=== PATIENT | male | born 1965 | race Caucasian/White ===

== ENCOUNTER → 2016-09-29 | Outpatient (CLI) | payer OTHER ==
[~2016-09-29] MED LIST: REGADENOSON 0.4 MG/5 ML SYRINGE IV ONE
--- NOTE | 2016-09-29 11:51 | ECHOF ---
Referral Reason:R07.9 chest pain R06.02 sob MEASUREMENTS -------- HEIGHT: 172.7 cm WEIGHT: 59.0 kg BP: 120/80 IVSd: 1.1 cm (0.6 - 1.1) LVIDd: 3.5 cm (3.9 - 5.3) LVPWd: 1.3 cm (0.6 - 1.1) IVSs: 1.8 cm LVIDs: 2.4 cm LVPWs: 1.6 cm LAESV Index (A-L): 30.03 ml/m Ao Diam: 3.2 cm (2.0 - 3.7) AV Cusp: 1.9 cm (1.5 - 2.6) LA Diam: 2.3 cm (2.7 - 3.8) MV EXCURSION: 20.304 mm (> 18.000) MV EF SLOPE: 165 mm/s (70 - 150) EPSS: 0.3 cm MV E Theo: 1.09 m/s MV DecT: 170 ms MV A Theo: 0.69 m/s MV E/A Ratio: 1.59 RAP: 5.00 mmHg RVSP: 25.60 mmHg FINDINGS -------- Sinus rhythm. This was a technically good study. There is borderline concentric left ventricular hypertrophy. Overall left ventricular systolic function is normal with, an EF between 55 - 60 %. The right ventricle is normal in size and function. LA is midly dilated 29-33ml/m2. The right atrium is normal in size. The aortic valve is trileaflet, and appears structurally normal. No aortic stenosis or regurgitation. Moderate mitral regurgitation is present. Trace tricuspid regurgitation present. The right ventricular systolic pressure, as measured by Doppler, is 25.60mmHg. Pulmonic valve appears structurally normal. The aortic root size is normal. There is a trivial pericardial effusion present. CONCLUSIONS -------- 1. Sinus rhythm. 2. Trace tricuspid regurgitation present. 3. The right ventricular systolic pressure, as measured by Doppler, is 25.60mmHg. 4. Pulmonic valve appears structurally normal. 5. The aortic root size is normal. 6. There is a trivial pericardial effusion present. 7. This was a technically good study. 8. There is borderline concentric left ventricular hypertrophy. 9. Overall left ventricular systolic function is normal with, an EF between 55 - 60 %. 10. The right ventricle is normal in size and function. 11. LA is midly dilated 29-33ml/m2. 12. The right atrium is normal in size. 13. The aortic valve is trileaflet, and appears structurally normal. No aortic stenosis or regurgitation. 14. Moderate mitral regurgitation is present. INSPECTOR SEMICONDUCTOR WAFER: Wendi Johnson RDCS
--- NOTE | 2016-09-29 12:17 | EST ---
DATE OF SERVICE: 09/29/2016 AGE: 51Y SEX: M HT: 5'8" WT: 132 lbs. Lexiscan Cardiolite Stress Test *Heart Rate Blood Pressure *Rest: 86 Rest: 180/96 * *Max. Achieved: 100 Maximum BP: 124/77 85% PMHR: 142 100% PMHR: 167 *METS: - INDICATIONS: Chest pain. MEDICATIONS: Insulin, Motrin, Tramadol, minocycline, lisinopril, Cymbalta. Patient was given Lexiscan injection over the period of 15 seconds. Peak heart rate of 100 was achieved. Maximum blood pressure of 124/77 mmHg was noted. Resting EKG shows normal sinus rhythm with normal SD interval and QRS duration and normal ST-T waves. No ST segment depression suggestive of ischemia is noted. The results of the nuclear study will follow.
--- NOTE | 2016-09-29 14:33 | NM ---
EXAMINATION TYPE: NM stress lexiscan cardiolite DATE OF EXAM: 09/29/2016 12:02 PM COMPARISON: NONE HISTORY: 51-year-old male with chest pain and shortness of breath TECHNIQUE: After the intravenous administration of 9.7 mCi Tc 99m Sestamibi - Cardiolite resting SPE CT images acquired 45 minutes post injection. The patient received 0.4mg Lexiscan, 27.0 mCi Tc 99m Sestamibi - Stress images obtained [address] injection FINDINGS: Review of stress and rest SPECT images demonstrates no distinct perfusion abnormality. Gated analysi s shows normal wall motion with an estimated left ventricular ejection fraction of 70 %. Polar maps a re normal. TID is calculated at 1.09, within normal limits. IMPRESSION: No scintigraphic evidence for reversible ischemia.
== END | disposition home or self-care (01) ==
LOC: RADNMMAIN 08:57
PROVIDERS: ATTEND Family Medicine
DX: I08.1 Rheumatic disorders of both mitral and tricuspid valves (principal); I31.3 Pericardial effusion (noninflammatory); Z88.8 Allergy status to other drugs, medicaments and biological substances; Z88.2 Allergy status to sulfonamides
CPT/HCPCS: 93017; 93306; 78452; A9500; J2785

== ENCOUNTER 2016-12-28 01:03 | Emergency (ER) | payer OTHER ==
[2016-12-28 01:09] VITALS: RESP 18
[2016-12-28] MEDS ORDERED: KETOROLAC 60 MG/2 ML VIAL IM STA (01:42)
--- NOTE | 2016-12-28 01:59 | ED ---
General Adult HPI - General Chief complaint: Fall Stated complaint: Fell out of a boat/Rib and foot pain Time Seen by Provider: 12/28/16 01:19 Source: patient, family, RN notes reviewed Mode of arrival: ambulatory Limitations: no limitations - History of Present Illness Initial comments: 51-year-old male presents emergency department with a chief complaint of left- sided rib pain. Patient states that he was unable and all of a sudden she was under the belt. Patient somehow fell off the belt he complains of left-sided rib pain. Complaint of some abrasions to bilateral feet and some morphine swelling. Patient's and jumping and pulled him out from underneath the belt. They state that he was down there for a few minutes. He states that he felt like he was on his left breath and then she got hit. Patient states that he is no head pain. Patient denies any arm pain. Patient again knee pain. Patient states he did feel little sore and he does have some scrapes to his feet. Patient states mostly he has left rib pain. Worse touch or a deep breath. Patient states he is not currently having any other symptoms at this time.Patient denies any recent fever, chills, shortness of breath, back pain, abdominal pain, nausea vomiting, numbness or tingling, dysuria or hematuria, constipation or diarrhea, headaches or visual changes, or any other current symptoms. - Related Data Home Medications Medication Instructions Recorded Confirmed Insulin Lispro [humaLOG] See Protocol SQ CONTINUOUS 08/02/14 12/28/16 DULoxetine HCL [Cymbalta] 30 mg PO DAILY 12/30/15 12/28/16 Ibuprofen [Motrin] 800 mg PO Q8H 12/30/15 12/28/16 traMADol HCL [Ultram] 100 mg PO BID 12/30/15 12/28/16 Atorvastatin [Lipitor] 10 mg PO DAILY 12/28/16 12/28/16 Lisinopril 40 mg PO DAILY 12/28/16 12/28/16 Previous Rx's Medication Instructions Recorded traMADol HCl [Ultram] 50 mg PO Q12H PRN #60 tab 12/30/15 Hydrocodone/Acetaminophen [[place] 1 each PO Q6HR PRN #20 tab 12/28/16 5-325] Allergies Allergy/AdvReac Type Severity Reaction Status Date / Time pregabalin [From Lyrica] Allergy Unknown Verified 12/28/16 01:09 Review of Systems ROS Statement: Those systems with pertinent positive or pertinent negative responses have been documented in the HPI. ROS Other: All systems not noted in ROS Statement are negative. Past Medical History Past Medical History: COPD, Diabetes Mellitus Additional Past Medical History / Comment(s): chronic back pain, has lost weight over the past year, abdominal pain, neuropathy due to diabetes, retinopathy, mitral valve prolapse History of Any Multi-Drug Resistant Organisms: None Reported Past Surgical History: Tonsillectomy Additional Past Surgical History / Comment(s): polyp removed from stomach as a 1 y.o., lesions removed from throat Past Anesthesia/Blood Transfusion Reactions: No Reported Reaction Past Psychological History: No Psychological Hx Reported Smoking Status: Current every day smoker Past Alcohol Use History: Occasional Past Drug Use History: None Reported - Past Family History Mother Family Medical History: Cancer Additional Family Medical History / Comment(s): lung General Exam - General Exam Comments Initial Comments: General: The patient is awake and alert, in no distress, and does not appear acutely ill. Eye: Pupils are equal, round and reactive to light, extra-ocular movements are intact; there is normal conjunctiva bilaterally. No signs of icterus. Ears, nose, mouth and throat: There are moist mucous membranes and no oral lesions. Neck: The neck is supple, there is no tenderness. Cardiovascular: There is a regular rate and rhythm. No murmur, rub or gallop is appreciated. Respiratory: Lungs are clear to auscultation, respirations are non-labored, breath sounds are equal. No wheezes, stridor, rales, or rhonchi. Gastrointestinal: Soft, non-distended, non-tender abdomen without masses or organomegaly noted. There is no rebound or guarding present. No CVA tenderness. Bowel sounds are unremarkable. Back: There is no tenderness to palpation in the midline. There is no obvious deformity. No rashes noted. Musculoskeletal: Normal ROM, no tenderness, There is no pedal edema. There is no calf tenderness or swelling. Sensation intact. Pulses equal bilaterally 2+. Neurological: CN II-XII intact, There are no obvious motor or sensory deficits. Coordination appears grossly intact. Speech is normal. Skin: Skin is warm and dry and no rashes. Abrasions onto the left side of the rib cage as well as to the left leg Psychiatric: Cooperative, appropriate mood & affect, normal judgment. Limitations: no limitations Course Vital Signs 12/28/16 01:05 Temperature 97.8 F Pulse Rate 94 Respiratory 18 Rate Blood Pressure 131/78 O2 Sat by Pulse 98 Oximetry Medical Decision Making - Medical Decision Making 51-year-old male presents emergency department with a chief complaint of fall with left-sided rib pain. This patient does appear to have a left rib fracture. At this time we did discuss that we'll give him pain medication for home. We did discuss close follow-up to discuss return parameters. His fluids. Patient family state Miguel A on questions have been answered. He will be discharged. Disposition Clinical Impression: Fall, Foot contusion, Abrasion of left lower leg, Abrasion of chest wall, Left rib fracture Disposition: HOME SELF-CARE Condition: Stable Instructions: Abrasion (ED), Rib Fracture (ED) Additional Instructions: Please use medication as discussed. Please follow up with family doctor if symptoms have not improved over the next two days. Please return to the emergency room if your symptoms increase or worsen or for any other concerns. If you develop any difficulty breathing or shortness of breath or worsening symptoms please return to the emergency department. Prescriptions: Hydrocodone/Acetaminophen [[place] 5-325] 1 each PO Q6HR PRN #20 tab PRN Reason: Pain Referrals: Desmond Pierce III, MD [Primary Care Provider] - 1-2 days Time of Disposition: 02:44
--- NOTE | 2016-12-28 02:39 | XR ---
EXAM: XR Left Ribs, 2 Views CLINICAL HISTORY: Reason: Pain TECHNIQUE: Frontal and oblique views of the left ribs. COMPARISON: No relevant prior studies available. FINDINGS: Lungs: Unremarkable as visualized. No consolidation. Pleural space: Unremarkable. No pneumothorax. Bones/joints: Nondisplaced fracture of the left posterolateral eighth rib (best seen on the second and fourth images). IMPRESSION: Nondisplaced fracture of the left posterolateral eighth rib (best seen on the second and fourth images).
[2016-12-28] MEDS ORDERED: HYDROcodone/APAP 5-325MG 1 EACH TAB PO STA (02:45)
[2016-12-28 03:13] VITALS: BP 145/82; PULSE 98; TEMP 97.1
== END 2016-12-28 03:10 | disposition home or self-care (01) ==
LOC: EC 01:03
DX: S22.32XA Fracture of one rib, left side, initial encounter for closed fracture (principal); S90.32XA Contusion of left foot, initial encounter; S20.312A Abrasion of left front wall of thorax, initial encounter; E11.40 Type 2 diabetes mellitus with diabetic neuropathy, unspecified; E11.319 Type 2 diabetes mellitus with unspecified diabetic retinopathy without macular edema; F17.200 Nicotine dependence, unspecified, uncomplicated; Z79.891 Long term (current) use of opiate analgesic; Z88.8 Allergy status to other drugs, medicaments and biological substances; Z79.4 Long term (current) use of insulin; Z79.899 Other long term (current) drug therapy; V93.39XA Fall on board unspecified watercraft, initial encounter
CPT/HCPCS: 71101; 99283; 96372; J1885

== ENCOUNTER → 2017-01-04 | Outpatient (CLI) | payer OTHER ==
--- NOTE | 2017-01-04 18:46 | MR ---
EXAMINATION TYPE: MR cervical spine wo/w con DATE OF EXAM: 01/04/2017 COMPARISON: 03/06/2015 Contrast: 5.5 mL Gadavist HISTORY: Neck Pain, with Limited ROM TECHNIQUE: Multiplanar, multisequence images of the cervical spine were acquired utilizing 5.5 mL intravenous Ga davist gadolinium contrast. There is a slight curvature of the spine. C2-C3: No evidence for degenerative disc disease. No disc bulge/herniation or protrusion. No Canal stenosis. Foramina are patent bilaterally. C3-C4: No evidence for degenerative disc disease. No disc bulge/herniation or protrusion. No Canal stenosis. Foramina are patent bilaterally. C4-C5: Mild disc desiccation. Broad-based central disc protrusion greatest posteriorly with effacemen t of the ventral thecal sac. Subligamentous disc herniation not excluded paracentrally and to the rig ht. Result in moderate bilateral foraminal encroachment. Borderline central stenosis. C5-C6: Mild degenerative disc desiccation. Circumferential disc bulge mild in degree with effacement ventral thecal sac. Greater left paracentral broad-based protrusion is stable. Left foraminal encroac hment seen. No central stenosis. C6-C7: Mild degenerative disc desiccation. Broad-based central disc protrusion slightly greater parac entrally to the left mild in degree with effacement ventral thecal sac. No evidence for central steno sis or disc herniation. Mild bilateral foraminal encroachment secondary to cervical apophyseal joint degenerative change. C7-T1: No evidence for degenerative disc disease. No disc bulge/herniation or protrusion. No Canal st enosis. Foramina are patent bilaterally. Cervical segments are intact. There is normal alignment. Cervical spinal cord is of normal signal. Craniovertebral junction relationships are within normal limits. IMPRESSION: 1. Multilevel degenerative disc disease is stable. 2. Broad-based central disc protrusion paracentrally to the left C5-C6 is stable with mild effacement of thecal sac and left-sided foraminal encroachment. 3. Broad-based central protrusion C4-C5 with mild to moderate effacement of thecal sac and borderline stenosis with bilateral foraminal encroachment..
== END | disposition home or self-care (01) ==
LOC: RADMRIMAIN 17:37
PROVIDERS: ATTEND Psychiatry & Neurology Pain Medicine
DX: M48.02 Spinal stenosis, cervical region (principal); M50.221 Other cervical disc displacement at C4-C5 level; M50.30 Other cervical disc degeneration, unspecified cervical region
CPT/HCPCS: 72156; A9581

== ENCOUNTER 2017-01-19 14:27 | Observation (INO) | payer OTHER ==
[2017-01-19] MEDS ORDERED: ASPIRIN 81 MG PO STA (16:15)
[2017-01-19] MEDS ORDERED: NITROGLYCERIN SL TABS 0.4 MG TAB SUBLINGUAL STA (16:15)
--- NOTE | 2017-01-19 16:18 | ED ---
General Adult HPI - General Chief complaint: Recheck/Abnormal Lab/Rx Stated complaint: high blood pressure Time Seen by Provider: 01/19/17 16:07 Source: patient, RN notes reviewed Mode of arrival: wheelchair Limitations: no limitations - History of Present Illness Initial comments: Patient's a 51-year-old male who presents emergency room today with chief complaint of elevated blood pressure. He does admit that he was scheduled to have injection for his neck pain. He states his blood pressure was elevated there and was advised coming to the emergency room for evaluation. He states that proximal half an hour ago while waiting to be seen he began having some chest tightness and discomfort. Patient denies ever having symptoms similar to this in the past. Patient currently rates it a 5/. Denies any radiation. Patient denies any other complaints or social symptoms. Patient denies any recent fever, chills, shortness of breath, chest pain, back pain, abdominal pain , nausea or vomiting, numbness or tingling, dysuria or hematuria, constipation or diarrhea, headaches or visual changes, or any other complaints. - Related Data Home Medications Medication Instructions Recorded Confirmed Ibuprofen [Motrin] 800 mg PO Q12H 12/30/15 01/19/17 traMADol HCL [Ultram] 100 mg PO Q12H 12/30/15 01/19/17 Lisinopril 40 mg PO DAILY 12/28/16 01/19/17 Atorvastatin [Lipitor] 20 mg PO DAILY 01/19/17 01/19/17 Cyclobenzaprine [Flexeril] 5 mg PO HS 01/19/17 01/19/17 DULoxetine HCL [Cymbalta] 60 mg PO HS 01/19/17 01/19/17 INSULIN LISPRO (For Pump) [humaLOG 0.01 units SQ-PUMP CONTINUOUS 01/19/17 (For Pump)] Allergies Allergy/AdvReac Type Severity Reaction Status Date / Time pregabalin [From Lyrica] Allergy Unknown Verified 01/19/17 17:21 Review of Systems ROS Statement: Those systems with pertinent positive or pertinent negative responses have been documented in the HPI. ROS Other: All systems not noted in ROS Statement are negative. Past Medical History Past Medical History: COPD, Diabetes Mellitus Additional Past Medical History / Comment(s): chronic back pain, has lost weight over the past year, abdominal pain, neuropathy due to diabetes, retinopathy, mitral valve prolapse History of Any Multi-Drug Resistant Organisms: None Reported Past Surgical History: Tonsillectomy Additional Past Surgical History / Comment(s): polyp removed from stomach as a 1 y.o., lesions removed from throat Past Anesthesia/Blood Transfusion Reactions: No Reported Reaction Past Psychological History: No Psychological Hx Reported Smoking Status: Current every day smoker Past Alcohol Use History: Occasional Past Drug Use History: None Reported - Past Family History Mother Family Medical History: Cancer Additional Family Medical History / Comment(s): lung General Exam - General Exam Comments Initial Comments: General: The patient is awake and alert, in no distress, and does not appear acutely ill. Eye: Pupils are equal, round and reactive to light, extra-ocular movements are intact. No nystagmus. There is normal conjunctiva bilaterally. No signs of icterus. Ears, nose, mouth and throat: There are moist mucous membranes and no oral lesions. Neck: The neck is supple, there is no tenderness or JVD. Cardiovascular: There is a regular rate and rhythm. No murmur, rub or gallop is appreciated. Respiratory: Lungs are clear to auscultation, respirations are non-labored, breath sounds are equal. No wheezes, stridor, rales, or rhonchi. Gastrointestinal: Soft, non-distended, non-tender abdomen without masses or organomegaly noted. There is no rebound or guarding present. No CVA tenderness. Bowel sounds are unremarkable. Musculoskeletal: Normal ROM, no tenderness. Strength 5/5. Sensation intact. Pulses equal bilaterally 2+. Neurological: A&O x 3. CN II-XII intact, There are no obvious motor or sensory deficits. Coordination appears grossly intact. Speech is normal. Skin: Skin is warm and dry and no rashes or lesions are noted. Psychiatric: Cooperative, appropriate mood & affect, normal judgment. Limitations: no limitations Course Vital Signs 01/19/17 01/19/17 01/19/17 14:43 16:46 17:40 Temperature 98.8 F Pulse Rate 85 85 86 Respiratory 20 20 20 Rate Blood Pressure 169/82 203/68 197/106 O2 Sat by Pulse 99 99 98 Oximetry 01/19/17 18:00 Temperature Pulse Rate 88 Respiratory 20 Rate Blood Pressure 203/100 O2 Sat by Pulse 99 Oximetry Medical Decision Making - Medical Decision Making Patient reexamined at this time shows no signs of distress. Patient's blood pressure improved after medication given here the emergency room. Patient did admit to developing some chest tightness in his chest while waiting to be seen. At this time his pain he is pain-free. He denies any chest pain or tightness. Does have a history of diabetes and hypertension. Patient will be admitted for serial enzymes. Patient is in agreement. - Lab Data Result diagrams: 01/19/17 16:50 01/19/17 16:50 Lab Results 01/19/17 01/19/17 01/19/17 Range/Units 16:50 16:50 16:50 WBC 10.0 (3.8-10.6) k/uL RBC 4.45 (4.30-5.90) m/uL Hgb 13.8 (13.0-17.5) gm/dL Hct 39.8 (39.0-53.0) % MCV 89.5 (80.0-100.0) fL MCH 31.0 (25.0-35.0) pg MCHC 34.7 (31.0-37.0) g/dL RDW 12.7 (11.5-15.5) % Plt Count 229 (150-450) k/uL Neutrophils % 63 % Lymphocytes % 25 % Monocytes % 7 % Eosinophils % 3 % Basophils % 0 % Neutrophils # 6.3 (1.3-7.7) k/uL Lymphocytes # 2.5 (1.0-4.8) k/uL Monocytes # 0.7 (0-1.0) k/uL Eosinophils # 0.3 (0-0.7) k/uL Basophils # 0.0 (0-0.2) k/uL PT (9.0-12.0) sec INR (<1.2) APTT (22.0-30.0) sec Sodium 138 (137-145) mmol/L Potassium 3.9 (3.5-5.1) mmol/L Chloride 105 (98-107) mmol/L Carbon Dioxide 25 (22-30) mmol/L Anion Gap 8 mmol/L BUN 11 (9-20) mg/dL Creatinine 0.50 L (0.66-1.25) mg/dL Est GFR (MDRD) Af Amer >60 (>60 ml/min/1.73 sqM) Est GFR (MDRD) Non-Af >60 (>60 ml/min/1.73 sqM) Glucose 192 H (74-99) mg/dL Calcium 9.4 (8.4-10.2) mg/dL Magnesium 1.7 (1.6-2.3) mg/dL Total Bilirubin 0.5 (0.2-1.3) mg/dL AST 31 (17-59) U/L ALT 60 (21-72) U/L Alkaline Phosphatase 81 (38-126) U/L Total Creatine Kinase 133 (55-170) U/L CK-MB (CK-2) 1.8 (0.0-2.4) ng/mL CK-MB (CK-2) Rel Index 1.4 Troponin I <0.012 (0.000-0.034) ng/mL Total Protein 6.1 L (6.3-8.2) g/dL Albumin 3.8 (3.5-5.0) g/dL 01/19/17 Range/Units 16:50 WBC (3.8-10.6) k/uL RBC (4.30-5.90) m/uL Hgb (13.0-17.5) gm/dL Hct (39.0-53.0) % MCV (80.0-100.0) fL MCH (25.0-35.0) pg MCHC (31.0-37.0) g/dL RDW (11.5-15.5) % Plt Count (150-450) k/uL Neutrophils % % Lymphocytes % % Monocytes % % Eosinophils % % Basophils % % Neutrophils # (1.3-7.7) k/uL Lymphocytes # (1.0-4.8) k/uL Monocytes # (0-1.0) k/uL Eosinophils # (0-0.7) k/uL Basophils # (0-0.2) k/uL PT 10.4 (9.0-12.0) sec INR 1.0 (<1.2) APTT 24.0 (22.0-30.0) sec Sodium (137-145) mmol/L Potassium (3.5-5.1) mmol/L Chloride (98-107) mmol/L Carbon Dioxide (22-30) mmol/L Anion Gap mmol/L BUN (9-20) mg/dL Creatinine (0.66-1.25) mg/dL Est GFR (MDRD) Af Amer (>60 ml/min/1.73 sqM) Est GFR (MDRD) Non-Af (>60 ml/min/1.73 sqM) Glucose (74-99) mg/dL Calcium (8.4-10.2) mg/dL Magnesium (1.6-2.3) mg/dL Total Bilirubin (0.2-1.3) mg/dL AST (17-59) U/L ALT (21-72) U/L Alkaline Phosphatase (38-126) U/L Total Creatine Kinase (55-170) U/L CK-MB (CK-2) (0.0-2.4) ng/mL CK-MB (CK-2) Rel Index Troponin I (0.000-0.034) ng/mL Total Protein (6.3-8.2) g/dL Albumin (3.5-5.0) g/dL Disposition Clinical Impression: Chest pain Disposition: ADMITTED IP TO THIS HOSP Condition: Good Instructions: Chest Pain (ED) Referrals: Desmond Pierce III, MD [Primary Care Provider] - 1-2 days Time of Disposition: 18:32
--- NOTE | 2017-01-19 16:46 | XR ---
EXAMINATION TYPE: XR chest 2V DATE OF EXAM: 01/19/2017 COMPARISON: 12/30/2015 HISTORY: Hypertension. Chest pain TECHNIQUE: Frontal and lateral views of the chest are obtained. FINDINGS: Heart and mediastinum are normal. Lungs are clear. There is no pleural effusion. There are no hilar masses. There are fractures of the posterior left seventh and eighth ribs. Thoracic spine i s intact. IMPRESSION: Acute fractures of the left ribs. Normal heart.
[2017-01-19 17:17] LABS: Basophils % (A) 0 %; CH 30.7; CHCM 34.4; Eosinophils # (A) 0.3 k/uL (0-0.7); Eosinophils % (A) 3 %; HCT 39.8 % (39.0-53.0); HDW 2.37; HGB 13.8 gm/dL (13.0-17.5); Luc # (Auto) 0.23; Luc % (Auto) 2; Lymphocytes # (A) 2.5 k/uL (1.0-4.8); Lymphocytes % (A) 25 %; MCHC 34.7 g/dL (31.0-37.0); MCV 89.5 fL (80.0-100.0); Mean Platelet Volume 7.6; Monocytes # (A) 0.7 k/uL (0-1.0); Monocytes % (A) 7 %; Neutrophils # (A) 6.3 k/uL (1.3-7.7); Neutrophils % (A) 63 %; RBC 4.45 m/uL (4.30-5.90); RDW 12.7 % (11.5-15.5); WBC (Perox) 10.15
[2017-01-19 17:30] LABS: ALT 60 U/L (21-72); AST 31 U/L (17-59); Alkaline Phosphatase 81 U/L (38-126); Anion Gap 8 mmol/L; Blood Urea Nitrogen 11 mg/dL (9-20); Calcium 9.4 mg/dL (8.4-10.2); Carbon Dioxide 25 mmol/L (22-30); Chloride 105 mmol/L (98-107); Glucose 192 mg/dL (74-99); Magnesium 1.7 mg/dL (1.6-2.3); Non-African American GFR(MDRD) >60 (>60 ml/min/1.73 sqM); Potassium 3.9 mmol/L (3.5-5.1); Sodium 138 mmol/L (137-145); Total Bilirubin 0.5 mg/dL (0.2-1.3); Total Protein 6.1 g/dL (6.3-8.2)
[2017-01-19 17:33] LABS: Prothrombin Time 10.4 sec (9.0-12.0)
[2017-01-19 17:47] LABS: Creatine Kinase 133 U/L (55-170)
[2017-01-19 17:56] LABS: Creatine Kinase MB 1.8 ng/mL (0.0-2.4)
[2017-01-19] MEDS ORDERED: hydrALAZINE HCL 20 MG/ML 1 ML VIAL IVP STA (18:10)
[2017-01-19 18:15] LABS: Troponin I <0.012 ng/mL (0.000-0.034)
[2017-01-19] MEDS ORDERED: HEPARIN SODIUM,PORCINE 5,000 UNIT/ML 1 ML VIAL IV ONE (18:32)
[2017-01-19] MEDS ORDERED: SODIUM CHLORIDE 0.9% 1,000 ML IV ONE (18:32)
[2017-01-19] MEDS ORDERED: NITROGLYCERIN SL TABS 0.4 MG TAB SUBLINGUAL PRN (18:32)
[2017-01-19] MEDS ORDERED: HEPARIN SODIUM,PORCINE/D5W PMX 25,000 UNIT in DEXTROSE/WATER 1 500ML.BAG IV SCH (18:45)
[2017-01-19 20:23] LABS: Glucose,Whole Blood 149 mg/dL (75-99)
[2017-01-19 21:00] LABS: Appearance,Urine Clear (Clear); Bilirubin,Urine Negative (Negative); Glucose,Urine (UA) 4+ (Negative); Ketones,Urine Negative (Negative); Leukocyte Esterase,Urine Negative (Negative); Nitrite,Urine Negative (Negative); Protein,Urine Negative (Negative); Specific Gravity,Urine 1.007 (1.001-1.035); UA Billing (MACRO vs. MICRO) CHEM; Urobilinogen,Urine <2.0 mg/dL (<2.0)
[2017-01-19] MEDS ORDERED: CYCLOBENZAPRINE 5 MG TAB PO SCH (21:30)
[2017-01-19] MEDS ORDERED: DULoxetine HCL 60 MG CAPSULE.DR PO SCH (21:30)
[2017-01-19] MEDS: ATORVASTATIN 20 MG TAB PO SCH (22:02)
[2017-01-19] MEDS: traMADol 50 MG TAB PO PRN (22:03)
[2017-01-19] MEDS: IBUPROFEN 800 MG TAB PO PRN (22:42)
[2017-01-20 00:48] LABS: Creatine Kinase 95 U/L (55-170)
[2017-01-20 01:01] LABS: Creatine Kinase MB 1.4 ng/mL (0.0-2.4); Troponin I <0.012 ng/mL (0.000-0.034)
[2017-01-20 05:36] LABS: Anion Gap 5 mmol/L; Blood Urea Nitrogen 14 mg/dL (9-20); Calcium 8.8 mg/dL (8.4-10.2); Carbon Dioxide 26 mmol/L (22-30); Chloride 106 mmol/L (98-107); Cholesterol 85 mg/dL (<200); Glucose 200 mg/dL (74-99); HDL Cholesterol 57 mg/dL (40-60); Magnesium 1.7 mg/dL (1.6-2.3); Non-African American GFR(MDRD) >60 (>60 ml/min/1.73 sqM); Potassium 3.6 mmol/L (3.5-5.1); Sodium 137 mmol/L (137-145)
[2017-01-20 05:43] LABS: Basophils # (A) 0.1 k/uL (0-0.2); Basophils % (A) 1 %; CH 31.4; CHCM 34.6; Eosinophils # (A) 0.3 k/uL (0-0.7); Eosinophils % (A) 4 %; HCT 37.7 % (39.0-53.0); HDW 2.33; HGB 12.6 gm/dL (13.0-17.5); Luc # (Auto) 0.24; Luc % (Auto) 3; Lymphocytes # (A) 2.6 k/uL (1.0-4.8); Lymphocytes % (A) 33 %; MCH 30.4 pg (25.0-35.0); MCHC 33.3 g/dL (31.0-37.0); MCV 91.1 fL (80.0-100.0); Mean Platelet Volume 8.5; Monocytes # (A) 0.6 k/uL (0-1.0); Monocytes % (A) 8 %; Neutrophils # (A) 4.1 k/uL (1.3-7.7); Neutrophils % (A) 52 %; RBC 4.14 m/uL (4.30-5.90); RDW 13.7 % (11.5-15.5); WBC 7.9 k/uL (3.8-10.6); WBC (Perox) 8.67
[2017-01-20 05:44] LABS: Creatine Kinase 82 U/L (55-170)
[2017-01-20 05:57] LABS: Creatine Kinase MB 1.2 ng/mL (0.0-2.4); Troponin I <0.012 ng/mL (0.000-0.034)
[2017-01-20 06:52] LABS: Glucose,Whole Blood 175 mg/dL (75-99)
[2017-01-20 07:39] VITALS: RESP 18
[2017-01-20] MEDS: ATORVASTATIN 20 MG TAB PO SCH (07:57)
[2017-01-20] MEDS ORDERED: ASPIRIN 325 MG TAB PO SCH (09:00)
[2017-01-20] MEDS ORDERED: INSULIN LISPRO (humaLOG) 300 UNIT/3 ML VIAL SQ PRN (09:34)
[2017-01-20] MEDS ORDERED: INSPUCOR MISCELLANE PRN (09:34)
[2017-01-20] MEDS ORDERED: INSULIN PUMP TARGET GLUCOSE 1 EACH MISC MISCELLANE PRN (09:34)
[2017-01-20] MEDS ORDERED: INSULIN PUMP ACTIVE INSULIN 1 EACH MISC MISCELLANE PRN (09:34)
[2017-01-20] MEDS ORDERED: INSULIN PUMP BASAL RATES 1 EACH MISC MISCELLANE PRN (09:34)
[2017-01-20] MEDS: traMADol 50 MG TAB PO PRN (10:21)
[2017-01-20] MEDS: IBUPROFEN 800 MG TAB PO PRN (11:21)
[2017-01-20 11:32] VITALS: BP 143/81; PULSE 90; TEMP 98.8
--- NOTE | 2017-01-20 11:33 | CONS ---
CONSULTATION A 51-year-old gentleman with type 1 diabetes on an insulin pump who also has hypertension, hyperlipidemia. Came into the hospital after he went to see Dr. Arriaza for a neck injection. He was waiting for that, his blood pressure was elevated. He had a lot of neck pain. Pressure was high. He was sent in here. Blood pressure was about about 200 systolic. After arrival pressure has normalized. He also complained of some sharp pain in the chest. Troponin levels are normal. Pain seems to be atypical. There is an element of anxiety. Blood pressure has normalized. About 3 TO 4 months ago, This gentleman had a Lexiscan stress test and echocardiogram both of which were unremarkable. He is resting comfortably without symptoms. Appears to be quite comfortable, blood sugar is also fairly decent. He has type [address] Tiffany Mccray and Dr. Pierce. At the time of my evaluation, he is asymptomatic. PAST MEDICAL HISTORY: 1. Type 1 diabetes. 2. History of hypertension. 3. Hypercholesterolemia. 4. History of a normal Lexiscan stress test and echo in the last 3 to 4 months. MEDICATIONS: At home include he is on an insulin pump. He takes Flexeril, atorvastatin 20 mg daily, lisinopril 40 mg daily, ibuprofen p.r.n. and Ultram. ALLERGIES: He is allergic to LYRICA. REVIEW OF SYSTEMS: Unremarkable, other than the above-mentioned facts. PHYSICAL EXAMINATION: Blood pressure is 140/80, pulse rate is about 80 per minute, regular. HEENT: unremarkable. Fundus was not examined by me. Neck is supple. No JVD. I do not hear a carotid bruit. There is no thyromegaly. Heart exam reveals S1, S2 heard normally without a rub, murmur, or gallop. Lungs are clear. Abdomen is soft, nontender. Lower extremities reveal normal pulses. No edema. Central nervous system is normal. EKG revealed sinus mechanism. No acute changes. LABORATORY DATA: Revealed unremarkable troponins. IMPRESSION: 1. Atypical chest pain. 2. Type 1 diabetes on insulin pump. 3. Hypertension. 4. Hypercholesterolemia. 5. Recent negative Lexiscan stress test and echocardiogram. RECOMMENDATIONS: I am recommending that we add a small dose of Norvasc for BP control. Discontinue heparin, increase activity. Discharge him with the understanding that he should follow up with his translator/interpreter and PCP. No further intervention necessary at this time. Chest pain seems atypical and his recent stress testing was negative. Thank you very much for the consult. MIHIR / DAVIDN: [id number] /
[2017-01-20 11:55] LABS: Glucose,Whole Blood 262 mg/dL (75-99)
[2017-01-20] MEDS ORDERED: INSULIN PUMP MEAL BOLUS 1 UNIT MISC MISCELLANE SCH (12:30)
--- NOTE | 2017-01-20 15:29 | P.HPIM ---
History of Present Illness Patient is a 51-year-old gentleman came in to the hospital after he was sent in from neurology clinic because of elevated blood pressure with systolics going up to 200. Patient's blood pressure at this point of time is an 140 systolic without any antidepressive medication patient was seen in neurology clinic because of the neck pain patient also complained about chest pressure like sensation radiating to from the neck area because of degenerative neck disease. Patient the chest pain is very minimal nonpleuritic, not associated with food no diaphoresis. Patient was evaluated by cardiology rule out acute coronary syndromes patient chest pain secondary to degenerative neck disease cleared from cardiology perspective. Patient was counseled extensively to check the blood pressure in an appropriate way. Patient's elevated blood pressure is secondary to pain. At this point of time patient will not need any antidepressants medications need to check his blood pressure in an appropriate way when he is not in pain to diagnose essential hypertension. Review of Systems REVIEW OF SYSTEMS: CONSTITUTIONAL: No fever, no malaise, no fatigue. HEENT: No recent visual problems or hearing problems. Denied any sore throat. CARDIOVASCULAR: No orthopnea, PND, no palpitations, no syncope. PULMONARY: No shortness of breath, no cough, no hemoptysis. GASTROINTESTINAL: No diarrhea, no nausea, no vomiting, no abdominal pain. Normoactive bowel sounds. NEUROLOGICAL: No headaches, no weakness, no numbness. HEMATOLOGICAL: Denies any bleeding or petechiae. GENITOURINARY: Denies any burning micturition, frequency, or urgency. MUSCULOSKELETAL/RHEUMATOLOGICAL: Neck pain radiating to the chest as mentioned above ENDOCRINE: Denies any polyuria or polydipsia. The rest of the 14-point review of systems is negative. Past Medical History Past Medical History: Diabetes Mellitus, Hyperlipidemia, Hypertension Additional Past Medical History / Comment(s): chronic back pain, has lost weight over the past year, abdominal pain, neuropathy due to diabetes,DROP FOOT (LT) wears a boot. retinopathy, mitral valve prolapse.mennigitis as child, recent fall-fx rib on lt side and has a "sore" on lower lt leg.has has steroid inj hips/wrist History of Any Multi-Drug Resistant Organisms: None Reported Past Surgical History: Tonsillectomy Additional Past Surgical History / Comment(s): polyp removed from stomach as a 1 y.o., lesions removed from throat positive for cancer- sx got it all -no chemo or radiation, egd,colonoscopy/polypectomy(benign)."can't rememebr if he had his appendix removed or not. 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(pig valve) Medications and Allergies Home Medications Medication Instructions Recorded Confirmed Type Ibuprofen [Motrin] 800 mg PO Q12H 12/30/15 01/19/17 History traMADol HCL [Ultram] 100 mg PO Q12H 12/30/15 01/19/17 History Lisinopril 40 mg PO DAILY 12/28/16 01/19/17 History Atorvastatin [Lipitor] 20 mg PO DAILY 01/19/17 01/19/17 History Cyclobenzaprine [Flexeril] 5 mg PO HS 01/19/17 01/19/17 History DULoxetine HCL [Cymbalta] 60 mg PO HS 01/19/17 01/19/17 History INSULIN LISPRO (For Pump) [humaLOG 0.01 units SQ-PUMP CONTINUOUS 01/19/17 History (For Pump)] Allergies Allergy/AdvReac Type Severity Reaction Status Date / Time pregabalin [From Lyrica] Allergy Unknown Verified 01/19/17 17:21 Physical Exam Vitals: Vital Signs Temp Pulse Pulse Resp BP BP BP 01/20/17 12:00 90 18 01/20/17 11:31 98.8 F 90 18 143/81 01/20/17 10:12 84 18 01/20/17 08:00 84 18 01/20/17 07:38 97.7 F 84 18 146/81 01/20/17 03:45 99.0 F 85 16 140/79 01/20/17 02:59 85 16 01/19/17 23:15 100 16 01/19/17 23:14 98.2 F 99 16 151/74 01/19/17 20:00 98.1 F 95 16 165/87 01/19/17 19:29 97.6 F 01/19/17 19:13 99 18 164/84 01/19/17 18:00 88 20 203/100 01/19/17 17:40 86 20 197/106 01/19/17 16:46 85 20 203/68 01/19/17 15:45 72 20 186/90 Pulse Ox 01/20/17 12:00 01/20/17 11:31 98 01/20/17 10:12 01/20/17 08:00 01/20/17 07:38 98 01/20/17 03:45 98 01/20/17 02:59 01/19/17 23:15 01/19/17 23:14 98 01/19/17 20:00 98 01/19/17 19:29 01/19/17 19:13 98 01/19/17 18:00 99 01/19/17 17:40 98 01/19/17 16:46 99 01/19/17 15:45 99 Intake and Output 01/20/17 01/20/17 01/20/17 06:59 14:59 22:59 Intake Total 96.708 240 Balance 96.708 240 Intake: Intake, IV Titration 96.708 Amount Heparin Sodium,Porcine/ 96.708 D5w Pmx 25,000 unit In Dextrose/Water 1 500ml. bag @ 12 UNITS/KG/HR 14. 47 mls/hr IV .Q24H [facility] Rx #:[id number] Oral 240 Other: Voiding Method Toilet # Voids 2 2 PHYSICAL EXAMINATION: GENERAL: The patient is alert and oriented x3, not in any acute distress. Well developed, well nourished. HEENT: Pupils are round and equally reacting to light. EOMI. No scleral icterus. No conjunctival pallor. Normocephalic, atraumatic. No pharyngeal erythema. No thyromegaly. CARDIOVASCULAR: S1 and S2 present. No murmurs, rubs, or gallops. PULMONARY: Chest is clear to auscultation, no wheezing or crackles. ABDOMEN: Soft, nontender, nondistended, normoactive bowel sounds. No palpable organomegaly. MUSCULOSKELETAL: No joint swelling or deformity. EXTREMITIES: No cyanosis, clubbing, or pedal edema. NEUROLOGICAL: Gross neurological examination did not reveal any focal deficits. SKIN: No rashes. Results CBC & Chem 7: 01/20/17 05:03 01/20/17 05:03 Labs: Abnormal Lab Results - Last 24 Hours (Table) 01/19/17 01/19/17 01/19/17 Range/Units 16:50 17:30 20:20 RBC (4.30-5.90) m/uL Hgb (13.0-17.5) gm/dL Hct (39.0-53.0) % APTT (22.0-30.0) sec Creatinine 0.50 L (0.66-1.25) mg/dL Glucose 192 H (74-99) mg/dL POC Glucose (mg/dL) 149 H (75-99) mg/dL Total Protein 6.1 L (6.3-8.2) g/dL Urine Glucose (UA) 4+ H (Negative) 01/20/17 01/20/17 01/20/17 Range/Units 00:09 05:03 05:03 RBC 4.14 L (4.30-5.90) m/uL Hgb 12.6 L (13.0-17.5) gm/dL Hct 37.7 L (39.0-53.0) % APTT 32.4 H (22.0-30.0) sec Creatinine 0.60 L (0.66-1.25) mg/dL Glucose 200 H (74-99) mg/dL POC Glucose (mg/dL) (75-99) mg/dL Total Protein (6.3-8.2) g/dL Urine Glucose (UA) (Negative) 01/20/17 01/20/17 Range/Units 06:49 11:53 RBC (4.30-5.90) m/uL Hgb (13.0-17.5) gm/dL Hct (39.0-53.0) % APTT (22.0-30.0) sec Creatinine (0.66-1.25) mg/dL Glucose (74-99) mg/dL POC Glucose (mg/dL) 175 H 262 H (75-99) mg/dL Total Protein (6.3-8.2) g/dL Urine Glucose (UA) (Negative) Thrombosis Risk Factor Assmnt - Choose All That Apply Any of the Below Risk Factors Present?: Yes Each Factor Represents 1 point: Age 41-60 years Other Risk Factors: No Other congenital or acquired thrombophilia - If yes, enter type in comment: No Thrombosis Risk Factor Assessment Total Risk Factor Score: 1 Thrombosis Risk Factor Assessment Level: Low Risk Assessment and Plan Plan: #1 chest pain: Rule out acute current syndromes his chest pain is secondary to musculoskeletal causes radiation from the neck area. Patient will need physical therapy pain management. #2 elevated blood pressure: My suspicion is low that patient has essential hypertension patient may have elevated blood pressures secondary to his neck pain. #3 hypertension patient uses lisinopril at home which can be continued #4 diabetes mellitus type 2 for which patient is on insulin pump which can be continued. #5 hyperlipidemia continue with Lipitor. Patient will be discharged today to follow up with neurology as an outpatient.
--- NOTE | 2017-01-20 15:30 | P.DS ---
Providers Date of admission: 01/19/17 18:34 Attending physician: Alden Price Consults: 01/19/17 18:32 Consult Physician Stat Consulting Provider: [facility] Consult Reason/Comments: Chest pain Do you want consulting provider notified?: Yes Primary care physician: Desmond Pierce [facility] Course: Please refer to my HPI Patient Condition at Discharge: Good Plan - Discharge Summary New Discharge Prescriptions: No Action traMADol HCL [Ultram] 100 mg PO Q12H Ibuprofen [Motrin] 800 mg PO Q12H Lisinopril 40 mg PO DAILY INSULIN LISPRO (For Pump) [humaLOG (For Pump)] 0.01 units SQ-PUMP CONTINUOUS DULoxetine HCL [Cymbalta] 60 mg PO HS Cyclobenzaprine [Flexeril] 5 mg PO HS Atorvastatin [Lipitor] 20 mg PO DAILY Discharge Medication List Ibuprofen [Motrin] 800 mg PO Q12H 12/30/15 [History] traMADol HCL [Ultram] 100 mg PO Q12H 12/30/15 [History] Lisinopril 40 mg PO DAILY 12/28/16 [History] Atorvastatin [Lipitor] 20 mg PO DAILY 01/19/17 [History] Cyclobenzaprine [Flexeril] 5 mg PO HS 01/19/17 [History] DULoxetine HCL [Cymbalta] 60 mg PO HS 01/19/17 [History] INSULIN LISPRO (For Pump) [humaLOG (For Pump)] 0.01 units SQ-PUMP CONTINUOUS 04/25 [History] Follow up Appointment(s)/Referral(s): Brandan Ballesteros MD [STAFF PHYSICIAN] - As Needed Desmond Pierce III, MD [Primary Care Provider] - 1-2 days Patient Instructions/Handouts: Chest Pain (ED)
[2017-01-20] MEDS ORDERED: amLODIPine 5 MG TAB PO SCH (21:00)
== END 2017-01-20 15:45 | disposition home or self-care (01) ==
LOC: EC 14:27 → 3OBS 18:34
PROVIDERS: ADMIT Hospitalist; ATTEND Hospitalist
DX: R07.89 Other chest pain (principal); I10 Essential (primary) hypertension; E78.5 Hyperlipidemia, unspecified; E11.40 Type 2 diabetes mellitus with diabetic neuropathy, unspecified; E11.319 Type 2 diabetes mellitus with unspecified diabetic retinopathy without macular edema; Z79.4 Long term (current) use of insulin; Z96.41 Presence of insulin pump (external) (internal); M50.30 Other cervical disc degeneration, unspecified cervical region; I34.1 Nonrheumatic mitral (valve) prolapse; G89.29 Other chronic pain; M54.9 Dorsalgia, unspecified; F17.200 Nicotine dependence, unspecified, uncomplicated; M21.372 Foot drop, left foot; Z79.1 Long term (current) use of non-steroidal anti-inflammatories (NSAID); Z79.891 Long term (current) use of opiate analgesic; Z79.899 Other long term (current) drug therapy; Z88.8 Allergy status to other drugs, medicaments and biological substances
CPT/HCPCS: 99284 ×2; 96365 ×2; 96375 ×2; 96376 ×2; 96366 ×2; 36415; 93005; 80061; 80053; 80048; 82550 ×2; 82553 ×2; 83735 ×2; 84484 ×2; 85025 ×2; 85610; 85730 ×2; 81003; 71020; G0378 ×2; J0360; J1644 ×2

== ENCOUNTER → 2018-12-05 | Outpatient (CLI) | payer OTHER ==
--- NOTE | 2018-12-05 14:42 | FL ---
Barium swallow HISTORY: Dysphasia 2 minutes 18 seconds fluoroscopy time, 28 intraoperative images obtained. Patient was given barium to drink and evaluated in real-time fluoroscopy. Swallowing mechanism is normal. There is no evident obstruction to flow. No extrinsic or intrinsic es ophageal lesion. Degenerative disc changes are noted incidentally within the cervical spine. Atherosc lerotic vascular calcifications seen in the distribution of the carotid bifurcation on the left. No g astroesophageal reflux was identified during the exam. IMPRESSION: Normal barium swallow.
== END | disposition home or self-care (01) ==
LOC: RADUSWWP 09:53
PROVIDERS: ATTEND Family Medicine
DX: K21.9 Gastro-esophageal reflux disease without esophagitis (principal); R13.10 Dysphagia, unspecified
CPT/HCPCS: 74220

== ENCOUNTER → 2018-12-27 | Outpatient (CLI) | payer OTHER ==
--- NOTE | 2018-12-27 12:51 | US ---
EXAMINATION TYPE: US carotid duplex BILAT DATE OF EXAM: 12/27/2018 COMPARISON: NONE CLINICAL HISTORY: I77.9 Disorder of arteries and arterioles, unspeci. Patient states no symptoms EXAM MEASUREMENTS: RIGHT: Peak Systolic Velocity (PSV) cm/sec ----- Right CCA: 98.5 ----- Right ICA: 71.2 ----- Right ECA: 80.2 ICA/CCA ratio: 0.7 RIGHT: End Diastole cm/sec ----- Right CCA: 13.8 ----- Right ICA: 25.0 ----- Right ECA: 14.3 LEFT: Peak Systolic Velocity (PSV) cm/sec ----- Left CCA: 67.7 ----- Left ICA: 64.8 ----- Left ECA: 80.5 ICA/CCA ratio: 1.0 LEFT: End Diastole cm/sec ----- Left CCA: 17.1 ----- Left ICA: 22.0 ----- Left ECA: 16.4 VERTEBRALS (direction of flow): Right Vertebral: Antegrade Left Vertebral: Antegrade Rhythm: Normal Toth scale images showed no significant focal eccentric plaque at carotid bulb level. Velocity measur ements and ratios are within normal limits in visualized portion of both internal carotid arteries. IMPRESSION: No hemodynamically significant stenosis is seen in either internal carotid artery. Criteria for Assigning % of Stenosis / Diameter reduction (Estimation based on the indirect measurements of the internal carotid artery velocities (ICA PSV). 1. Normal (no stenosis)=ICA PSV < 125 cm/s: ratio < 2.0: ICA EDV<40 cm/s. 2. Less than 50% stenosis=ICA PSV < 125 cm/s: ratio < 2.0: ICA EDV<40 cm/s. 3. 50 to 69% stenosis=ICA PSV of 125 to 230 cm/s: ration 2.0 ? 4.0: ICA EDV 40-100 cm/s. 4. Greater than 70% stenosis to near occlusion= ICA PSV > 230 cm/s: ratio > 4.0: ICA EDV > 100 cm/s. 5. Near occlusion= ICA PSV velocities may be low or undetectable: variable ratio and ICA EDV. 6. Total occlusion=unable to detect flow.
== END | disposition home or self-care (01) ==
LOC: RADUSWWP 12:14
PROVIDERS: ATTEND Family Medicine
DX: I65.29 Occlusion and stenosis of unspecified carotid artery (principal)
CPT/HCPCS: 93880

== ENCOUNTER → 2019-02-06 | Outpatient (CLI) | payer OTHER ==
--- NOTE | 2019-02-06 15:21 | US ---
EXAMINATION TYPE: US thyroid st tissue head/neck DATE OF EXAM: 02/06/2019 COMPARISON: NONE CLINICAL HISTORY: R13.10 Dysphagia. Patient states having difficult swallowing. No thyroid meds. GLAND SIZE: Right Lobe: 4.6 x 1.8 x 1.3 cm Overall Parenchyma: heterogenous Left Lobe: 4.0 x 1.7 x 1.6 cm Overall Parenchyma: heterogeneous Isthmus Thickness: 0.3 cm NODULES RIGHT: # of nodules measured on right: 0 LEFT: # of nodules measured on left: 0 ISTHMUS: # of nodules measured in the isthmus: 0 Bilateral neck scanned, no evidence of lymphadenopathy. Bilateral thyroid lobes appear hypervascular. IMPRESSION: Dominant size of the hypervascular heterogenous thyroid gland. Findings can be seen in [facility] [place] on chronic thyroiditis.
== END | disposition home or self-care (01) ==
LOC: RADUSWWP 14:43
PROVIDERS: ATTEND Family Medicine
DX: R94.6 Abnormal results of thyroid function studies (principal); R13.10 Dysphagia, unspecified
CPT/HCPCS: 76536

== ENCOUNTER 2019-11-28 19:29 | Inpatient (IN) | payer OTHER ==
[2019-11-28] MEDS ORDERED: ALBUTEROL HFA INHALER INHALATION STA (20:04)
--- NOTE | 2019-11-28 20:32 | XR ---
EXAMINATION TYPE: XR chest 1V portable DATE OF EXAM: 11/28/2019 COMPARISON: 01/19/2017 HISTORY: Chest pain. Pneumonia. TECHNIQUE: FINDINGS: Heart and mediastinum are normal. Lungs are clear of infiltrate. There is no heart failure. There are no hilar masses. There is no pleural effusion. Bony thorax appears intact. IMPRESSION: Negative exam. No evidence of bronchopneumonia. No change.
[2019-11-28 20:48] LABS: Basophils # (A) 0.1 k/uL (0-0.2); Basophils % (A) 1 %; Eosinophils # (A) 0.1 k/uL (0-0.7); Eosinophils % (A) 1 %; HGB 16.8 gm/dL (13.0-17.5); Lymphocytes # (A) 2.3 k/uL (1.0-4.8); Lymphocytes % (A) 21 %; MCH 30.2 pg (25.0-35.0); MCHC 33.7 g/dL (31.0-37.0); MCV 89.6 fL (80.0-100.0); Mean Platelet Volume 8.3; Monocytes # (A) 0.7 k/uL (0-1.0); Monocytes % (A) 7 %; Neutrophils # (A) 7.5 k/uL (1.3-7.7); Neutrophils % (A) 69 %; Platelet Count 237 k/uL (150-450); RBC 5.57 m/uL (4.30-5.90); RDW 12.9 % (11.5-15.5); WBC 10.9 k/uL (3.8-10.6)
[2019-11-28 21:02] LABS: ALT 16 U/L (4-49); AST 20 U/L (17-59); African American GFR (CKD) >90 (>60 ml/min/1.73 sqM); Albumin 4.7 g/dL (3.5-5.0); Alkaline Phosphatase 84 U/L (38-126); Anion Gap 14 mmol/L; Blood Urea Nitrogen 16 mg/dL (9-20); C Reactive Protein <5.0 mg/L (<10.0); Calcium 9.7 mg/dL (8.4-10.2); Carbon Dioxide 13 mmol/L (22-30); Chloride 106 mmol/L (98-107); Glucose 209 mg/dL (74-99); LDH 387 U/L (313-618); Non-African American GFR(CKD) >90 (>60 ml/min/1.73 sqM); Potassium 4.6 mmol/L (3.5-5.1); Sodium 133 mmol/L (137-145); Total Bilirubin 0.6 mg/dL (0.2-1.3); Total Protein 7.4 g/dL (6.3-8.2)
[2019-11-28] MEDS ORDERED: MAG HYDROX/AL HYDROX/SIMETH 30 ML, HYOSCYAMINE ELIXIR 10 ML, LIDOCAINE VISCOUS 2% 10 ML PO STA ×3 (21:03)
[2019-11-28 21:08] LABS: D-Dimer 0.45 mg/L FEU (<0.60); INR 0.9 (<1.2); Partial Thromboplastin Time 22.4 sec (22.0-30.0); Prothrombin Time 9.5 sec (9.0-12.0)
--- NOTE | 2019-11-28 22:33 | CT ---
EXAMINATION TYPE: CT brain wo con DATE OF EXAM: 11/28/2019 COMPARISON: None HISTORY: c/o fatigue and dizziness CT DLP: 1137.4 mGycm Automated exposure control for dose reduction was used. Ventricles have normal size. There is no mass effect nor midline shift. There is 2 cm area of hypoden sity in the anterior left internal capsule. There is no evidence of intracranial hemorrhage. Calvariu m is intact. Skull base appears intact. IMPRESSION: Anterior left internal capsule hypodensity consistent with subacute infarct.
[2019-11-28] MEDS ORDERED: ASPIRIN 325 MG TAB PO STA (22:44)
[2019-11-28 22:55] LABS: Appearance,Urine Clear (Clear); Bilirubin,Urine 1+ (Negative); Blood,Urine Trace (Negative); Color,Urine Yellow; Glucose,Urine (UA) 4+ (Negative); Hyaline Casts,Urine 40 /lpf (0-2); Leukocyte Esterase,Urine Negative (Negative); Mucus,Urine Few /hpf; Nitrite,Urine Negative (Negative); Protein,Urine 1+ (Negative); RBC,Urine 7 /hpf (0-5); Specific Gravity,Urine 1.022 (1.001-1.035); WBC,Urine 2 /hpf (0-5)
--- NOTE | 2019-11-28 23:08 | ED ---
General Adult HPI - General Source: patient, RN notes reviewed, old records reviewed Mode of arrival: wheelchair Limitations: no limitations <Juan Davila - Last Filed: 11/28/19 23:45> <Gillian Willard - Last Filed: 12/02/19 22:07> - General Chief complaint: Dizziness Stated complaint: Dizziness,exposed to covid Time Seen by Provider: 11/28/19 19:38 - History of Present Illness Initial comments: 54-year-old male patient presented to ED chief complaint of 2 days of feeling very tired generally achy has been having some dizziness. Denies any focal area of pain. Does report that he is a smoker and has a baseline cough states it is not worse. Denies any significant shortness of breath. Denies any chest pain. Denies any fevers. Denies any other complaints. Pt does report that he had a positive covid exposure. Systemic: Pt denies fatigue, fever/chills, rash. Pt denies weakness, night sweats, weight loss. Neuro: Pt denies headache, visual disturbances, syncope or pre-syncope. HEENT: Pt denies ocular discharge or irritation, otalgia, rhinorrhea, pharyngitis or notable lymphadenopathy. Cardiopulmonary: Pt denies chest pain, SOB, heart palpitations, dyspnea on exertion. Abdominal/GI: Pt denies abdominal pain, n/v/d. : Pt denies dysuria, burning w/ urination, frequency/urgency. Denies new onset urinary or bowel incontinence. MSK: Pt denies myalgia, loss of strength or function in extremities. Neuro: Pt denies new onset weakness, paresthesias. (Juan Davila) - Related Data Home Medications Medication Instructions Recorded Confirmed Ibuprofen [Motrin] 800 mg PO TID 12/30/15 11/28/19 lisinopriL 40 mg PO DAILY 12/28/16 11/28/19 Atorvastatin [Lipitor] 20 mg PO DAILY 01/19/17 11/28/19 Cyclobenzaprine [Flexeril] 5 mg PO TID 01/19/17 11/28/19 DULoxetine HCL [Cymbalta] 60 mg PO HS 01/19/17 11/28/19 INSULIN LISPRO (For Pump) [humaLOG 0.01 units SQ-PUMP CONTINUOUS 01/19/17 11/28/19 (For Pump)] DULoxetine HCL [Cymbalta] 30 mg PO HS 11/28/19 11/28/19 Loratadine 10 mg PO DAILY 11/28/19 11/28/19 Omeprazole 20 mg PO BID 11/28/19 11/28/19 amLODIPine [Norvasc] 2.5 mg PO DAILY 11/28/19 11/28/19 Previous Rx's Medication Instructions Recorded Aspirin EC [Ecotrin Low Dose] 81 mg PO DAILY #30 tablet. 12/01/19 Allergies Allergy/AdvReac Type Severity Reaction Status Date / Time pregabalin [From Lyrica] Allergy Unknown Verified 11/28/19 21:01 Review of Systems ROS Other: All systems not noted in ROS Statement are negative. <Juan Davila - Last Filed: 11/28/19 23:45> ROS Other: All systems not noted in ROS Statement are negative. <Gillian Willard - Last Filed: 12/02/19 22:07> ROS Statement: Those systems with pertinent positive or pertinent negative responses have been documented in the HPI. Past Medical History Past Medical History: Diabetes Mellitus, Hyperlipidemia, Hypertension Additional Past Medical History / Comment(s): chronic back pain, has lost weight over the past year, abdominal pain, neuropathy due to diabetes,DROP FOOT (LT) wears a boot. retinopathy, mitral valve prolapse.mennigitis as child, recent fall-fx rib on lt side and has a "sore" on lower lt leg.has has steroid inj hips/wrist. carotid artery "leak" History of Any Multi-Drug Resistant Organisms: None Reported Past Surgical History: Tonsillectomy Additional Past Surgical History / Comment(s): polyp removed from stomach as a 1 y.o., lesions removed from throat positive for cancer- sx got it all -no chemo or radiation, egd,colonoscopy/polypectomy(benign)."can't rememebr if he had his appendix removed or not. Past Anesthesia/Blood Transfusion Reactions: No Reported Reaction Past Psychological History: Depression Smoking Status: Current every day smoker Past Alcohol Use History: Occasional Past Drug Use History: Marijuana - Past Family History Mother Family Medical History: Cancer Additional Family Medical History / Comment(s): lung Father Family Medical History: Diabetes Mellitus Additional Family Medical History / Comment(s): mine shifter replacment(pig valve) <Juan Davila - Last Filed: 11/28/19 23:45> General Exam Limitations: no limitations <Juan Davila - Last Filed: 11/28/19 23:45> - General Exam Comments Initial Comments: Constitutional: NAD, AOX3, Pt has pleasant affect. HEENT: NC/AT, trachea midline, neck supple, no lymphadenopathy. Posterior pharynx non erythematous, without exudates. External ears appear normal, without discharge. Mucous membranes moist. Eyes PERRLA, EOM intact. There is no scleral icterus. No pallor noted. Cardiopulmonary: RRR, no murmurs, rubs or gallops, no JVD noted. Lungs CTAB in anterior and posterior escobar. No peripheral edema. Abdominal exam: Abdomen soft and non-distended. No focal area of tenderness.. Bowel sounds active in LLQ. No hepatosplenomegaly. No ecchymosis Neuro: CN II-XII intact. No nuchal rigidity. No raccon eyes, no mello sign, no hemotympanum. No cervical spinal tenderness. NIH 0. MSK: No posterior calf tenderness bilaterally, homans sign negative bilaterally. Posterior tibialis and radial pulse +2 bilaterally. Sensation intact in upper and lower extremities. Full active ROM in upper and lower extremities, 5/5 stregnth. (Juan Davila) Course Vital Signs 11/28/19 11/28/19 11/28/19 19:33 20:35 21:00 Temperature 98.2 F 98.1 F Pulse Rate 109 H 89 Pulse Rate [ Pulse Oximetery ] Respiratory 19 16 Rate Blood Pressure 142/79 Blood Pressure [Right Arm] O2 Sat by Pulse 99 100 Oximetry 11/28/19 11/28/19 11/28/19 22:18 23:00 23:55 Temperature 98.3 F 98.1 F 98.2 F Pulse Rate 94 93 92 Pulse Rate [ Pulse Oximetery ] Respiratory 16 16 16 Rate Blood Pressure 149/94 155/96 Blood Pressure [Right Arm] O2 Sat by Pulse 99 100 99 Oximetry 11/29/19 11/29/19 11/29/19 00:15 00:41 00:42 Temperature 98.2 F 98.7 F Pulse Rate 86 Pulse Rate [ 92 95 Pulse Oximetery ] Respiratory 16 17 16 Rate Blood Pressure 151/97 Blood Pressure 149/94 132/84 [Right Arm] O2 Sat by Pulse 99 95 100 Oximetry Medical Decision Making - Lab Data Result diagrams: 11/28/19 20:31 11/28/19 20:31 - EKG Data -: EKG Interpreted by Me (and Dr. Willard ) <Juan Davila - Last Filed: 11/28/19 23:45> - Lab Data Result diagrams: 12/01/19 06:45 12/01/19 06:45 <Gillian Willard - Last Filed: 12/02/19 22:07> - Medical Decision Making 54-year-old male patient with the further evaluation of nausea, fever, dizziness myalgias for the last 3 days patient had positive covered exposure. Denies any focal area pain or any other complaints. Patient vital signs are stable, afebrile. His exam states some generalized abdominal discomfort however no focal area of pain. Lotrimin investigations were oral unremarkable with exception of urinalysis displayed +[address] brain without contrast was performed and does display subacute infarct. Pt denies any time in the last few days when he had any facial droop, focal weakness, or any stroke like symptoms. Patient neurologic exam is intact NIH is 0. Patient initiated on aspirin and statin. Patient will be admitted for further evaluation neurology evaluation. Admitting physician was Dr. Oro. I did discuss case with Dr. Raphael who recommended CTA brain. This was negative. Case discussed in depth with Dr. Willard. (Juan Davila) I was available for consultation in the emergency department. The history and physical exam were done by the midlevel provider. I was consulted for this patients care. I reviewed the case with the midlevel provider and based on their presentation of the patient, I agree with the assessment, medical decision making and plan of care as documented. Chart was dictated using [email or web address] dictation software. Attempts were made to correct any dictation errors however some typographical errors may persist. Patient was seen during a national state of emergency due to the Covid-19 pandemic. (Gillian Willard) - Lab Data Lab Results 11/28/19 11/28/19 11/28/19 Range/Units 19:55 20:31 20:31 WBC 10.9 H (3.8-10.6) k/uL RBC 5.57 (4.30-5.90) m/uL Hgb 16.8 (13.0-17.5) gm/dL Hct 50.0 (39.0-53.0) % MCV 89.6 (80.0-100.0) fL MCH 30.2 (25.0-35.0) pg MCHC 33.7 (31.0-37.0) g/dL RDW 12.9 (11.5-15.5) % Plt Count 237 (150-450) k/uL Neutrophils % 69 % Lymphocytes % 21 % Monocytes % 7 % Eosinophils % 1 % Basophils % 1 % Neutrophils # 7.5 (1.3-7.7) k/uL Lymphocytes # 2.3 (1.0-4.8) k/uL Monocytes # 0.7 (0-1.0) k/uL Eosinophils # 0.1 (0-0.7) k/uL Basophils # 0.1 (0-0.2) k/uL PT 9.5 (9.0-12.0) sec INR 0.9 (<1.2) APTT 22.4 (22.0-30.0) sec D-Dimer 0.45 (<0.60) mg/L FEU Sodium (137-145) mmol/L Potassium (3.5-5.1) mmol/L Chloride (98-107) mmol/L Carbon Dioxide (22-30) mmol/L Anion Gap mmol/L BUN (9-20) mg/dL Creatinine (0.66-1.25) mg/dL Est GFR (CKD-EPI)AfAm (>60 ml/min/1.73 sqM) Est GFR (CKD-EPI)NonAf (>60 ml/min/1.73 sqM) Glucose (74-99) mg/dL Plasma Lactic Acid Matt (0.7-2.0) mmol/L Calcium (8.4-10.2) mg/dL Magnesium (1.6-2.3) mg/dL Ferritin (22.0-322.0) ng/mL Total Bilirubin (0.2-1.3) mg/dL AST (17-59) U/L ALT (4-49) U/L Alkaline Phosphatase (38-126) U/L Lactate Dehydrogenase (313-618) U/L Troponin I (0.000-0.034) ng/mL C-Reactive Protein (<10.0) mg/L Total Protein (6.3-8.2) g/dL Albumin (3.5-5.0) g/dL Procalcitonin (0.02-0.09) ng/mL Urine Color Urine Appearance (Clear) Urine pH (5.0-8.0) Ur Specific [place] (1.001-1.035) Urine Protein (Negative) Urine Glucose (UA) (Negative) Urine Ketones (Negative) Urine Blood (Negative) Urine Nitrite (Negative) Urine Bilirubin (Negative) Urine Urobilinogen (<2.0) mg/dL Ur Leukocyte Esterase (Negative) Urine RBC (0-5) /hpf Urine WBC (0-5) /hpf Hyaline Casts (0-2) /lpf Urine Mucus (None) /hpf Urine Opiates Screen (NotDetected) Ur Oxycodone Screen (NotDetected) Urine Methadone Screen (NotDetected) Ur Propoxyphene Screen (NotDetected) Ur Barbiturates Screen (NotDetected) U Tricyclic Antidepress (NotDetected) Ur Phencyclidine Scrn (NotDetected) Ur Amphetamines Screen (NotDetected) U Methamphetamines Scrn (NotDetected) U Benzodiazepines Scrn (NotDetected) Urine Cocaine Screen (NotDetected) U Marijuana (THC) Screen (NotDetected) Acetone, Qual (Negative) Coronavirus (PCR) Not Detected 11/28/19 11/28/19 11/28/19 Range/Units 20:31 20:31 20:31 WBC (3.8-10.6) k/uL RBC (4.30-5.90) m/uL Hgb (13.0-17.5) gm/dL Hct (39.0-53.0) % MCV (80.0-100.0) fL MCH (25.0-35.0) pg MCHC (31.0-37.0) g/dL RDW (11.5-15.5) % Plt Count (150-450) k/uL Neutrophils % % Lymphocytes % % Monocytes % % Eosinophils % % Basophils % % Neutrophils # (1.3-7.7) k/uL Lymphocytes # (1.0-4.8) k/uL Monocytes # (0-1.0) k/uL Eosinophils # (0-0.7) k/uL Basophils # (0-0.2) k/uL PT (9.0-12.0) sec INR (<1.2) APTT (22.0-30.0) sec D-Dimer (<0.60) mg/L FEU Sodium 133 L (137-145) mmol/L Potassium 4.6 (3.5-5.1) mmol/L Chloride 106 (98-107) mmol/L Carbon Dioxide 13 L (22-30) mmol/L Anion Gap 14 mmol/L BUN 16 (9-20) mg/dL Creatinine 0.80 (0.66-1.25) mg/dL Est GFR (CKD-EPI)AfAm >90 (>60 ml/min/1.73 sqM) Est GFR (CKD-EPI)NonAf >90 (>60 ml/min/1.73 sqM) Glucose 209 H (74-99) mg/dL Plasma Lactic Acid Matt 1.0 (0.7-2.0) mmol/L Calcium 9.7 (8.4-10.2) mg/dL Magnesium 2.0 (1.6-2.3) mg/dL Ferritin 159.1 (22.0-322.0) ng/mL Total Bilirubin 0.6 (0.2-1.3) mg/dL AST 20 (17-59) U/L ALT 16 (4-49) U/L Alkaline Phosphatase 84 (38-126) U/L Lactate Dehydrogenase 387 (313-618) U/L Troponin I (0.000-0.034) ng/mL C-Reactive Protein <5.0 (<10.0) mg/L Total Protein 7.4 (6.3-8.2) g/dL Albumin 4.7 (3.5-5.0) g/dL Procalcitonin 0.04 (0.02-0.09) ng/mL Urine Color Urine Appearance (Clear) Urine pH (5.0-8.0) Ur Specific Mountain (1.001-1.035) Urine Protein (Negative) Urine Glucose (UA) (Negative) Urine Ketones (Negative) Urine Blood (Negative) Urine Nitrite (Negative) Urine Bilirubin (Negative) Urine Urobilinogen (<2.0) mg/dL Ur Leukocyte Esterase (Negative) Urine RBC (0-5) /hpf Urine WBC (0-5) /hpf Hyaline Casts (0-2) /lpf Urine Mucus (None) /hpf Urine Opiates Screen (NotDetected) Ur Oxycodone Screen (NotDetected) Urine Methadone Screen (NotDetected) Ur Propoxyphene Screen (NotDetected) Ur Barbiturates Screen (NotDetected) U Tricyclic Antidepress (NotDetected) Ur Phencyclidine Scrn (NotDetected) Ur Amphetamines Screen (NotDetected) U Methamphetamines Scrn (NotDetected) U Benzodiazepines Scrn (NotDetected) Urine Cocaine Screen (NotDetected) U Marijuana (THC) Screen (NotDetected) Acetone, Qual (Negative) Coronavirus (PCR) 11/28/19 11/28/19 11/28/19 Range/Units 20:31 20:31 22:45 WBC (3.8-10.6) k/uL RBC (4.30-5.90) m/uL Hgb (13.0-17.5) gm/dL Hct (39.0-53.0) % MCV (80.0-100.0) fL MCH (25.0-35.0) pg MCHC (31.0-37.0) g/dL RDW (11.5-15.5) % Plt Count (150-450) k/uL Neutrophils % % Lymphocytes % % Monocytes % % Eosinophils % % Basophils % % Neutrophils # (1.3-7.7) k/uL Lymphocytes # (1.0-4.8) k/uL Monocytes # (0-1.0) k/uL Eosinophils # (0-0.7) k/uL Basophils # (0-0.2) k/uL PT (9.0-12.0) sec INR (<1.2) APTT (22.0-30.0) sec D-Dimer (<0.60) mg/L FEU Sodium (137-145) mmol/L Potassium (3.5-5.1) mmol/L Chloride (98-107) mmol/L Carbon Dioxide (22-30) mmol/L Anion Gap mmol/L BUN (9-20) mg/dL Creatinine (0.66-1.25) mg/dL Est GFR (CKD-EPI)AfAm (>60 ml/min/1.73 sqM) Est GFR (CKD-EPI)NonAf (>60 ml/min/1.73 sqM) Glucose (74-99) mg/dL Plasma Lactic Acid Matt (0.7-2.0) mmol/L Calcium (8.4-10.2) mg/dL Magnesium (1.6-2.3) mg/dL Ferritin (22.0-322.0) ng/mL Total Bilirubin (0.2-1.3) mg/dL AST (17-59) U/L ALT (4-49) U/L Alkaline Phosphatase (38-126) U/L Lactate Dehydrogenase (313-618) U/L Troponin I <0.012 (0.000-0.034) ng/mL C-Reactive Protein (<10.0) mg/L Total Protein (6.3-8.2) g/dL Albumin (3.5-5.0) g/dL Procalcitonin (0.02-0.09) ng/mL Urine Color Yellow Urine Appearance Clear (Clear) Urine pH 6.0 (5.0-8.0) Ur Specific [place] 1.022 (1.001-1.035) Urine Protein 1+ H (Negative) Urine Glucose (UA) 4+ H (Negative) Urine Ketones 4+ H (Negative) Urine Blood Trace H (Negative) Urine Nitrite Negative (Negative) Urine Bilirubin 1+ H (Negative) Urine Urobilinogen 4.0 (<2.0) mg/dL Ur Leukocyte Esterase Negative (Negative) Urine RBC 7 H (0-5) /hpf Urine WBC 2 (0-5) /hpf Hyaline Casts 40 H (0-2) /lpf Urine Mucus Few H (None) /hpf Urine Opiates Screen (NotDetected) Ur Oxycodone Screen (NotDetected) Urine Methadone Screen (NotDetected) Ur Propoxyphene Screen (NotDetected) Ur Barbiturates Screen (NotDetected) U Tricyclic Antidepress (NotDetected) Ur Phencyclidine Scrn (NotDetected) Ur Amphetamines Screen (NotDetected) U Methamphetamines Scrn (NotDetected) U Benzodiazepines Scrn (NotDetected) Urine Cocaine Screen (NotDetected) U Marijuana (THC) Screen (NotDetected) Acetone, Qual Positive (Negative) Coronavirus (PCR) 11/28/19 Range/Units 22:45 WBC (3.8-10.6) k/uL RBC (4.30-5.90) m/uL Hgb (13.0-17.5) gm/dL Hct (39.0-53.0) % MCV (80.0-100.0) fL MCH (25.0-35.0) pg MCHC (31.0-37.0) g/dL RDW (11.5-15.5) % Plt Count (150-450) k/uL Neutrophils % % Lymphocytes % % Monocytes % % Eosinophils % % Basophils % % Neutrophils # (1.3-7.7) k/uL Lymphocytes # (1.0-4.8) k/uL Monocytes # (0-1.0) k/uL Eosinophils # (0-0.7) k/uL Basophils # (0-0.2) k/uL PT (9.0-12.0) sec INR (<1.2) APTT (22.0-30.0) sec D-Dimer (<0.60) mg/L FEU Sodium (137-145) mmol/L Potassium (3.5-5.1) mmol/L Chloride (98-107) mmol/L Carbon Dioxide (22-30) mmol/L Anion Gap mmol/L BUN (9-20) mg/dL Creatinine (0.66-1.25) mg/dL Est GFR (CKD-EPI)AfAm (>60 ml/min/1.73 sqM) Est GFR (CKD-EPI)NonAf (>60 ml/min/1.73 sqM) Glucose (74-99) mg/dL Plasma Lactic Acid Matt (0.7-2.0) mmol/L Calcium (8.4-10.2) mg/dL Magnesium (1.6-2.3) mg/dL Ferritin (22.0-322.0) ng/mL Total Bilirubin (0.2-1.3) mg/dL AST (17-59) U/L ALT (4-49) U/L Alkaline Phosphatase (38-126) U/L Lactate Dehydrogenase (313-618) U/L Troponin I (0.000-0.034) ng/mL C-Reactive Protein (<10.0) mg/L Total Protein (6.3-8.2) g/dL Albumin (3.5-5.0) g/dL Procalcitonin (0.02-0.09) ng/mL Urine Color Urine Appearance (Clear) Urine pH (5.0-8.0) Ur Specific [place] (1.001-1.035) Urine Protein (Negative) Urine Glucose (UA) (Negative) Urine Ketones (Negative) Urine Blood (Negative) Urine Nitrite (Negative) Urine Bilirubin (Negative) Urine Urobilinogen (<2.0) mg/dL Ur Leukocyte Esterase (Negative) Urine RBC (0-5) /hpf Urine WBC (0-5) /hpf Hyaline Casts (0-2) /lpf Urine Mucus (None) /hpf Urine Opiates Screen Not Detected (NotDetected) Ur Oxycodone Screen Not Detected (NotDetected) Urine Methadone Screen Not Detected (NotDetected) Ur Propoxyphene Screen Not Detected (NotDetected) Ur Barbiturates Screen Not Detected (NotDetected) U Tricyclic Antidepress Not Detected (NotDetected) Ur Phencyclidine Scrn Not Detected (NotDetected) Ur Amphetamines Screen Not Detected (NotDetected) U Methamphetamines Scrn Not Detected (NotDetected) U Benzodiazepines Scrn Not Detected (NotDetected) Urine Cocaine Screen Not Detected (NotDetected) U Marijuana (THC) Screen Not Detected (NotDetected) Acetone, Qual (Negative) Coronavirus (PCR) - EKG Data EKG Comments: Ventricular rate 98,. 128, crit 32, QT/QTc 338/431. Sinus rhythm with premature ventricular complex. Possible left atrial enlargement. Anterior infarct age undetermined determined. Abnormal EKG. No concern for acute ischemia this time. (Juan Davila) Disposition Is patient prescribed a controlled substance at d/c from ED?: No <Juan Davila - Last Filed: 11/28/19 23:45> <Gillian Willard - Last Filed: 12/02/19 22:07> Clinical Impression: CVA (cerebral vascular accident) Disposition: ADMITTED IP TO THIS HOSP Condition: Serious
[2019-11-28 23:17] LABS: Ketones,Urine 4+ (Negative)
[2019-11-28] MEDS ORDERED: SODIUM CHLORIDE 0.9% 1,000 ML IV ONE (23:28)
--- NOTE | 2019-11-28 23:42 | CT ---
EXAMINATION TYPE: CT angio head neck DATE OF EXAM: 11/28/2019 COMPARISON: HISTORY: Subacute Infarct, Dizziness CT DLP: 360.70 mGycm Automated exposure control for dose reduction was used. CONTRAST: Performed with IV Contrast, patient injected with 65 mL of Isovue 370. There are 3-D post processed images. FINDINGS: There is normal branching pattern of the great vessels on the aortic arch. There is bilateral arteria l flow in the vertebral arteries. There is arterial flow in the common internal and external carotid arteries bilaterally. There is wide patency of the carotid artery bifurcations. There is no evidence of carotid or vertebral artery aneurysm or dissection. There is arterial flow in the vertebrobasilar artery system. There is arterial flow in the anterior m iddle and posterior cerebral arteries bilaterally. There is normal contrast opacification of the veno us sinuses. I see no evidence of intracranial arterial stenosis. There is no evidence of intracranial aneurysm or neovascularity. There is no mass effect. IMPRESSION: Negative CT angiogram of the neck. Negative CT angiogram of the brain.
[2019-11-28] MEDS ORDERED: HYDROcodone/APAP 5-325MG 1 EACH TAB PO PRN (23:54)
[2019-11-29] MEDS ORDERED: TEMAZEPAM 15 MG CAP PO PRN (00:45)
[2019-11-29] MEDS ORDERED: ALPRAZolam 0.25 MG TAB PO PRN (00:45)
--- NOTE | 2019-11-29 01:10 | HP ---
HISTORY AND PHYSICAL DATE OF SERVICE: 11/28/2019 CHIEF COMPLAINT: Dizziness and weakness. HISTORY OF PRESENT ILLNESS: This 54-year-old gentleman with a past medical history of multiple medical problems including diabetes mellitus, hypertension, hyperlipidemia, chronic back pain, history of weight loss, history of abdominal pain, history of neuropathy secondary to diabetes mellitus, history of retinopathy using insulin pump, depression, being followed by Dr. Pierce in the outpatient setting, not feeling well for the past several days. The patient is feeling dizzy, weak, and the patient was also complaining of some shoulder pains so the patient came to [facility]. The patient apparently reports exposure to COVID-19. The equipment man was COVID-19 positive and was singing karaoke and the patient was exposed to the equipment man according to him, who later turned up positive. The patient was evaluated in the ER extensively which showed mildly elevated WBC, hyponatremia and abnormal urine also. The patient also had a CT scan of the brain which showed anterior left internal capsule hypodensity consistent with subacute infarct on the left side and the patient admitted for further evaluation and treatment. CT angiography of the neck did not show any acute abnormality or any stenosis. There is no history of any fever, rigors or chills. No history of cough, sputum, hemoptysis, hematemesis or melena. No history of rashes or joint pain at this time. PAST MEDICAL HISTORY: History of diabetes mellitus type 2, history of hypertension, hyperlipidemia, chronic back pain, tonsillectomy. MEDICATIONS: Home medications are: 1. Norvasc. 2. Cymbalta. 3. Omeprazole. 4. Loratadine. 5. Flexeril. 6. Lisinopril. 7. Motrin. 8. Insulin pump. 9. Cymbalta. 10.Lipitor. ALLERGIES: LYRICA. FAMILY HISTORY: History of lung cancer. SOCIAL HISTORY: History of alcohol. History of smoking. REVIEW OF SYSTEMS: ENT: No diminished hearing or diminished vision, otherwise, as mentioned earlier. CARDIOVASCULAR SYSTEM: No angina. RESPIRATORY SYSTEM: As mentioned earlier. GI: As mentioned earlier. : No dysuria. NERVOUS SYSTEM: As mentioned earlier. ALLERGIES/IMMUNOLOGY: No asthma or hayfever. MUSCULOSKELETAL: As mentioned earlier. HEMATOLOGY/ONCOLOGY: No history of anemia. ENDOCRINE: Diabetes mellitus. CONSTITUTIONAL: As mentioned earlier. DERMATOLOGY: Negative. RHEUMATOLOGY: Negative. PSYCHIATRY: As mentioned earlier. PHYSICAL EXAMINATION: Patient is alert and oriented x3. Pulse is 92, blood pressure 155/96, respirations 16, temperature 98.2, pulse ox 99% on 2 L. HEENT: Conjunctivae normal. Oral mucosa moist. NECK: No jugular venous distention. No carotid bruit. No lymph node enlargement. CARDIOVASCULAR: S1, S2 muffled. No S3, no S4. RESPIRATORY: Breath sounds diminished at the bases. No rhonchi, no crackles. ABDOMEN: Soft, nontender. No mass palpable. LEGS: No edema, no swelling. NERVOUS SYSTEM: Higher function as mentioned. Moves all 4 limbs. No focal motor or sensory deficit. LYMPHATICS: No lymphadenopathy of the neck, axillae or groin. SKIN: No ulcer, rash or bleeding. JOINTS: No active deforming arthropathy. LABS: Labs are at this time show WBC 10.9, sodium 133. Other labs are reviewed. UA noted. ASSESSMENT: 1. Acute to subacute anterior left internal capsule hypodensity, possible subacute infarct and stroke. 2. Possible acute COVID-19 infection. 3. Rule out diabetic ketoacidosis. 4. Hyponatremia. 5. Increased WBC. 6. Diabetes mellitus type 2 history. 7. Hypertension. 8. Hyperlipidemia. 9. Chronic back pain, degenerative joint disease. 10.History of peripheral neuropathy secondary to diabetes. 11.History of retinopathy. 12.History of mitral valve prolapse. 13.History of meningitis as a child. 14.History of tonsillectomy. 15.History of stomach polyp. 16.History of apparent throat cancer. 17.History of depression. 18.History of continued ongoing nicotine dependence. 19.History of THC. RECOMMENDATIONS AND DISCUSSION: This 54-year-old gentleman who presented with multiple complex medical issues, at this time I recommend to continue current medications, continue symptomatic treatment. Otherwise, I would recommend antiplatelet agents Lipitor, neurology consultation, neurovascular workup. I would also recommend resume the home medications. I would also recommend a COVID-19 testing because of the strong history of exposure. This could be an unusual presentation of the COVID. Otherwise, I would also recommend repeat labs and continue to monitor. The prognosis guarded because of multiple complex medical issues. Further recommendations to follow and I would also recommend a stat serum ketone to rule out the possibility of diabetic ketoacidosis as well. Prognosis guarded. Further recommendations to follow. Please forward a copy of dictation to Dr. Pierce who is the primary physician. MMODL / IJN: [id number] /
[2019-11-29 02:11] LABS: Amphetamine Screen,Urine Not Detected (NotDetected); Barbiturate Screen,Urine Not Detected (NotDetected); Benzodiazepines Screen,Urine Not Detected (NotDetected); Cocaine Screen,Urine Not Detected (NotDetected); Methadone Screen, Urine Not Detected (NotDetected); Opiate Screen,Urine Not Detected (NotDetected); Oxycodone Screen, Urine Not Detected (NotDetected); Phencyclidine Screen,Urine Not Detected (NotDetected); Tricyclic Antidepressant,Urine Not Detected (NotDetected); Urn Cannabinoid Scrn Not Detected (NotDetected)
[2019-11-29 02:39] LABS: Ferritin 159.1 ng/mL (22.0-322.0)
[2019-11-29] MEDS: INSULIN LISPRO (For Pump) 100 UNIT/ML VIAL SQ-PUMP SCH ×2 (03:52→23:50)
[2019-11-29] MEDS: SODIUM CHLORIDE 0.9% 1,000 ML IV SCH ×3 (03:53→15:55)
[2019-11-29] MEDS: PANTOPRAZOLE 40 MG/10 ML VIAL IVP SCH ×2 (03:53→08:12)
[2019-11-29 06:17] LABS: Glucose,Whole Blood 244 mg/dL (75-99)
[2019-11-29 07:22] LABS: Cholesterol 159 mg/dL (<200); HDL Cholesterol 37 mg/dL (40-60); LDL Cholesterol,Calculated 75 mg/dL (0-99); Triglycerides 235 mg/dL (<150)
[2019-11-29] MEDS: HEPARIN SODIUM,PORCINE 5,000 UNIT/ML 1 ML VIAL SQ SCH ×2 (08:08→19:52)
[2019-11-29] MEDS: ATORVASTATIN 40 MG TAB PO SCH (08:09)
[2019-11-29] MEDS: PANTOPRAZOLE 40 MG TABLET PO SCH ×2 (08:09→19:52)
[2019-11-29] MEDS: amLODIPine 2.5 MG TAB PO SCH ×2 (08:09→12:47)
[2019-11-29] MEDS: LORATADINE 10 MG TAB PO SCH (08:09)
[2019-11-29] MEDS: IBUPROFEN 800 MG TAB PO SCH ×3 (08:10→22:19)
[2019-11-29] MEDS: CYCLOBENZAPRINE 5 MG TAB PO SCH ×3 (08:10→22:19)
--- NOTE | 2019-11-29 11:00 | ECHOF ---
Referral Reason:Stroke MEASUREMENTS -------- HEIGHT: 172.7 cm WEIGHT: 75.7 kg BP: 130/75 RVIDd: 2.6 cm (< 3.3) IVSd: 1.5 cm (0.6 - 1.1) LVIDd: 3.1 cm (3.9 - 5.3) LVPWd: 1.7 cm (0.6 - 1.1) IVSs: 1.9 cm LVIDs: 2.1 cm LVPWs: 1.8 cm LAESV Index (A-L): 13.00 ml/m Ao Diam: 2.5 cm (2.0 - 3.7) AV Cusp: 1.7 cm (1.5 - 2.6) MV EXCURSION: 15.459 mm (> 18.000) MV EF SLOPE: 68 mm/s (70 - 150) EPSS: 0.2 cm MV E Theo: 0.87 m/s MV DecT: 268 ms MV A Theo: 1.06 m/s MV E/A Ratio: 0.82 RAP: 5.00 mmHg RVSP: 27.40 mmHg FINDINGS -------- This was a technically adequate study. The left ventricular size is normal. There is moderate concentric left ventricular hypertrophy. O verall left ventricular systolic function is normal with, an EF between 55 - 60 %. The diastolic fi lling pattern is normal for the age of the patient 11.29. The right ventricle is normal in size. Normal LA size by volume 22+/-6 ml/m2. The right atrial size is normal. Interatrial and interventricular septum intact. There is no evidence of aortic regurgitation. There is no evidence of aortic stenosis. No mitral regurgitation. Mild tricuspid regurgitation present. There is no evidence of pulmonary hypertension. The right v entricular systolic pressure, as measured by Doppler, is 27.40mmHg. There is no pulmonic regurgitation present. The aortic root size is normal. The inferior vena cava is mildly dilated. There is no pericardial effusion. CONCLUSIONS -------- 1. The left ventricular size is normal. 2. There is moderate concentric left ventricular hypertrophy. 3. Overall left ventricular systolic function is normal with, an EF between 55 - 60 %. 4. The diastolic filling pattern is normal for the age of the patient 11.29 5. Mild tricuspid regurgitation present. 6. The inferior vena cava is mildly dilated. DIP BRAZIER: Harriett Mejia RDCS
[2019-11-29 12:22] LABS: Glucose,Whole Blood 284 mg/dL (75-99)
--- NOTE | 2019-11-29 14:15 | P.CNNES ---
History of Present Illness Consult date: 11/29/19 Requesting physician: Juan Davila Reason for Consult: Subacute CVA History of Present Illness: Patient is a 54-year-old male with history of diabetes, hypertension, tobacco use, states that for the last 3 days he has been feeling very tired, no energy, sleeping all the time. His stomach was aching, headaches off and on, acid reflux. He was feeling confused, and also feeling dizzy "out of it". Patient also report of having been exposed to a coworker on 11/19/2019, who was later diagnosed with COVID-19 on 11/26/2019. Patient denies any focal symptoms like slurred speech facial droop or loss of vision blurred vision, double vision. Denies any focal numbness tingling or weakness. Patient came to ER yesterday at 7:30 PM. His blood pressure on arrival was 142/79, pulse rate 109, temperature 98.2. Patient underwent CT head showed anterior left internal capsule hypodensity consistent with subacute infarct. On my review, it appears chronic infarct. CTA of head and neck negative. Chest x-ray negative. No evidence of bronchopneumonia. 2-D echo showed moderate concentric LVH. Normal left- ventricular size. EF is 55-60%. Mild TR. Patient's CBC shows a blue BC 10.9 hemoglobin 16.8, platelets 237. PT/PTT normal. Sodium 133 potassium 4.6, renal functions normal. Total cholesterol 159, LDL 75, HDL 37 and triglycerides 235. Pro-calcitonin is normal 0.04. UA shows 4+ ketones, 4+ glucose, negative leukocyte esterase and 2 WBC. Acetone positive. Patient states he has history of diabetes for the last 20 years. It was initially type 2, but now requires insulin. He states it is poorly controlled. He has hypertension. Also smoked 2 packs per day since age 16. Still smokes. Denies any history of stroke. Patient does not take any antiplatelet medication at home. Review of Systems As per HPI. All other 14 review of systems completely unremarkable. He does have some diabetic neuropathy. Past Medical History Past Medical History: Diabetes Mellitus, GERD/Reflux, Hyperlipidemia, Hypertension Additional Past Medical History / Comment(s): chronic back pain, has lost weight over the past year, abdominal pain, neuropathy due to diabetes,DROP FOOT (LT) wears a boot. retinopathy, mitral valve prolapse.mennigitis as child, recent fall-fx rib on lt side and has a "sore" on lower lt leg.has has steroid inj hips/wrist. carotid artery "leak" History of Any Multi-Drug Resistant Organisms: None Reported Past Surgical History: Tonsillectomy Additional Past Surgical History / Comment(s): polyp removed from stomach as a 1 y.o., lesions removed from throat positive for cancer- sx got it all -no chemo or radiation, egd,colonoscopy/polypectomy(benign)."can't rememebr if he had his appendix removed or not. 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 has an insulin pump. Smoking Status: Current every day smoker Past Alcohol Use History: Occasional Additional Past Alcohol Use History / Comment(s): 2 drinks per day Past Drug Use History: Marijuana - Past Family History Mother Family Medical History: Cancer Additional Family Medical History / Comment(s): lung Father Family Medical History: Diabetes Mellitus Additional Family Medical History / Comment(s): automatic coin machine mechanic replacment(pig valve) Medications and Allergies Home Medications Medication Instructions Recorded Confirmed Type Ibuprofen [Motrin] 800 mg PO TID 12/30/15 11/28/19 History lisinopriL [Lisinopril] 40 mg PO DAILY 12/28/16 11/28/19 History Atorvastatin [Lipitor] 20 mg PO DAILY 01/19/17 11/28/19 History Cyclobenzaprine [Flexeril] 5 mg PO TID 01/19/17 11/28/19 History DULoxetine HCL [Cymbalta] 60 mg PO HS 01/19/17 11/28/19 History INSULIN LISPRO (For Pump) [humaLOG 0.01 units SQ-PUMP CONTINUOUS 01/19/17 11/28/19 History (For Pump)] DULoxetine HCL [Cymbalta] 30 mg PO HS 11/28/19 11/28/19 History Loratadine 10 mg PO DAILY 11/28/19 11/28/19 History Omeprazole 20 mg PO BID 07/21/20 07/21/20 History amLODIPine [Norvasc] 2.5 mg PO DAILY 11/28/19 11/28/19 History Allergies Allergy/AdvReac Type Severity Reaction Status Date / Time pregabalin [From Lyrica] Allergy Unknown Verified 11/28/19 21:01 Physical Examination - Vital Signs Vital Signs: Vital Signs Temp Pulse Pulse Resp BP BP Pulse Ox 11/29/19 08:00 97.8 F 87 16 107/65 98 11/29/19 03:03 98.2 F 85 16 130/75 100 11/29/19 01:57 98.2 F 96 16 130/75 100 11/29/19 00:57 98.7 F 95 16 132/84 95 11/29/19 00:42 98.7 F 95 16 132/84 100 11/29/19 00:41 86 17 151/97 95 11/29/19 00:15 98.2 F 92 16 149/94 99 11/28/19 23:55 98.2 F 92 16 155/96 99 11/28/19 23:00 98.1 F 93 16 149/94 100 11/28/19 22:18 98.3 F 94 16 99 11/28/19 21:00 89 16 100 11/28/19 20:35 98.1 F 11/28/19 19:33 98.2 F 109 H 19 142/79 99 Intake and Output 11/28/19 11/29/19 11/29/19 22:59 06:59 14:59 Output Total 360 Balance -360 Output: Urine 360 Other: Voiding Method Toilet # Voids 1 Weight 75.75 kg 75.75 kg On examination patient is a middle aged male, in no acute distress. Patient is alert awake oriented times place and person. Speech and language functions are normal. Attention and concentration and fund of knowledge is adequate. On cranial examination pupils are round and reacting to light, visual escobar are full to confrontation. Extraocular muscles intact with no nystagmus. Face is symmetric, tongue protrudes the midline. Palatal elevation and sensation normal. Hearing is mildly decreased and shoulder shrug normal. On muscle strength testing there is no pronator drift and the strength is normal in arms and legs distally and proximally. Reflexes are diminished and plantars are downgoing bilaterally. Sensory touch is equal with no neglect. No ataxia for [id number] testing. Tone and bulk of muscles normal. Gait deferred. No bruit, no murmur. S1 and S2 audible. No peripheral edema. Chest is clear. Abdomen soft nontender. Results - Laboratory Findings CBC and BMP: 11/28/19 20:31 11/28/19 20:31 Abnormal Lab Findings: Abnormal Labs 11/28/19 11/28/19 11/28/19 20:31 20:31 22:45 WBC 10.9 H Sodium 133 L Carbon Dioxide 13 L Glucose 209 H POC Glucose (mg/dL) Triglycerides HDL Cholesterol Urine Protein 1+ H Urine Glucose (UA) 4+ H Urine Ketones 4+ H Urine Blood Trace H Urine Bilirubin 1+ H Urine RBC 7 H Hyaline Casts 40 H Urine Mucus Few H 11/29/19 11/29/19 05:49 06:15 WBC Sodium Carbon Dioxide Glucose POC Glucose (mg/dL) 244 H Triglycerides 235 H HDL Cholesterol 37 L Urine Protein Urine Glucose (UA) Urine Ketones Urine Blood Urine Bilirubin Urine RBC Hyaline Casts Urine Mucus Assessment and Plan Assessment: * Multiple nonspecific complaints including fatigue, headaches, reflux, dizziness, probably non-neurological origin. Patient has diabetes poorly controlled with possible DKA. * CT head showed hypodensity in the left anterior internal capsule, most likely old. * Hypertension * Diabetes, poorly controlled * Chronic tobacco use, smokes 2 packs per day. * Dyslipidemia. Plan: * Patient does not have any focal or lateralizing symptoms. Patient's examination is completely nonfocal. No clinical evidence of acute stroke. A bnormality noted on the computed tomography scan is probably from a remote stroke. He does have multiple vascular risk factors, which needs to be addressed aggressively. * We will check hemoglobin A1c, B12, folate. * Strict control of blood pressure. * Suggest optimize control of diabetes. Target hemoglobin A1c <7.0. * Patient strongly recommended tobacco cessation. * Start aspirin regimen daily. Patient does have acid reflux, therefore may change to aspirin 81 mg daily. * Internal medicine to manage possible DKA.
[2019-11-29 14:49] LABS: Basophils # (A) 0.1 k/uL (0-0.2); Basophils % (A) 1 %; Eosinophils # (A) 0.3 k/uL (0-0.7); Eosinophils % (A) 3 %; HCT 46.1 % (39.0-53.0); Lymphocytes # (A) 2.1 k/uL (1.0-4.8); Lymphocytes % (A) 25 %; MCH 29.5 pg (25.0-35.0); MCHC 32.6 g/dL (31.0-37.0); MCV 90.5 fL (80.0-100.0); Mean Platelet Volume 8.5; Monocytes # (A) 0.6 k/uL (0-1.0); Monocytes % (A) 7 %; Neutrophils # (A) 5.3 k/uL (1.3-7.7); Neutrophils % (A) 62 %; Platelet Count 212 k/uL (150-450); RBC 5.09 m/uL (4.30-5.90); WBC 8.5 k/uL (3.8-10.6)
[2019-11-29 14:53] LABS: ALT 15 U/L (4-49); AST 19 U/L (17-59); African American GFR (CKD) >90 (>60 ml/min/1.73 sqM); Albumin 3.5 g/dL (3.5-5.0); Alkaline Phosphatase 66 U/L (38-126); Anion Gap 5 mmol/L; Blood Urea Nitrogen 15 mg/dL (9-20); Calcium 8.9 mg/dL (8.4-10.2); Carbon Dioxide 22 mmol/L (22-30); Chloride 108 mmol/L (98-107); Glucose 218 mg/dL (74-99); Non-African American GFR(CKD) >90 (>60 ml/min/1.73 sqM); Potassium 3.9 mmol/L (3.5-5.1); Sodium 135 mmol/L (137-145); Total Bilirubin 0.4 mg/dL (0.2-1.3); Total Protein 5.7 g/dL (6.3-8.2)
--- NOTE | 2019-11-29 16:38 | PN ---
PROGRESS NOTE DATE OF SERVICE: 11/29/2019 This 54-year-old gentleman who was admitted with acute to subacute infarct on the left internal capsule also had hypodensity. The patient had significant exposure to COVID- 19. The patient had to work and the survey chief who was singing karaoke was using the same microphone, apparently. The patient also had a complete workup. Angiography was negative. A 2D echo with Doppler was done today which was reported as ejection fraction 55% to 60% and mild tricuspid regurgitation. Neurology has seen the patient. The patient's acetone was positive. BMP today is not available. Blood sugar is elevated. Past medical history reviewed. REVIEW OF SYSTEMS: CARDIOVASCULAR SYSTEM: No angina, palpitations. RESPIRATORY SYSTEM: As mentioned earlier. GI: As mentioned earlier. : No dysuria or retention. NERVOUS SYSTEM: No numbness, weakness. CURRENT MEDICATIONS: Reviewed. They include: 1. Jeremiah 5 mg q.6 p.r.n. 2. Xanax 0.25 t.i.d. 3. Norvasc. 4. Aspirin. 5. Lipitor. 6. Flexeril. 7. Cymbalta. 8. Heparin. 9. Motrin. 10.Claritin. 11.Protonix. PHYSICAL EXAMINATION: Patient is alert, oriented x3. Pulse is 87, blood pressure 107/65, respirations 16, temperature 97.8, pulse ox 98% on room air. HEENT: Conjunctivae normal. NECK: No jugular venous distention. CARDIOVASCULAR SYSTEM: S1, S2 muffled. RESPIRATORY SYSTEM: Breath sounds diminished at the bases. A few scattered rhonchi and crackles. ABDOMEN: Soft, non-tender. LEGS: No edema. No swelling. NERVOUS SYSTEM: No focal deficit. LABS: Yesterday's labs showed WBC 10.9. CO2 is 13 and triglycerides are 235. ASSESSMENT: 1. Acute to subacute anterior left internal capsule hypodensity, possibly subacute infarct and stroke. 2. Possible acute COVID-19 infection. 3. Possible acute diabetic ketoacidosis, present on admission. 4. Hyponatremia. 5. Increased white count. 6. Diabetes mellitus, type 2 history. 7. Hypertension. 8. Hyperlipidemia. 9. Chronic back pain, degenerative joint disease. 10.History of peripheral neuropathy secondary to diabetes mellitus, type 2. 11.History of retinopathy. 12.History of mitral valve prolapse. 13.History of meningitis as a child. 14.History of tonsillectomy. 15.History of stomach polyp. 16.History of apparent throat cancer. 17.History of depression. 18.History of continued ongoing nicotine dependence. 19.History of tetrahydrocannabinol. RECOMMENDATIONS AND DISCUSSION: I recommend to continue current medications, continue with symptomatic treatment. Otherwise, continue with antiplatelet agents. I would repeat the blood evaluations, and if there is evidence of acidosis, I would recommend a diabetic ketoacidotic regimen. Otherwise, closely follow with Neurology and Cardiology. Two-dimensional echo has been noted. Neurology has recommended antiplatelet agents. Smoking cessation. Optimize blood sugar control. Guarded prognosis. Further recommendations to follow. MMODL / IJN: [id number] /
[2019-11-29 17:12] LABS: Glucose,Whole Blood 244 mg/dL (75-99)
[2019-11-29 19:11] LABS: Folate, Serum 13.5 ng/mL
[2019-11-29] MEDS: DULoxetine HCL 30 MG CAPSULE.DR PO SCH (19:52)
[2019-11-29] MEDS: DULoxetine HCL 60 MG CAPSULE.DR PO SCH (19:52)
[2019-11-29 20:12] LABS: Glucose,Whole Blood 232 mg/dL (75-99)
[2019-11-29 21:31] LABS: Hemoglobin A1C 11.7 % (4.0-6.0)
[2019-11-29] MEDS: ASPIRIN 325 MG TAB PO SCH (22:19)
--- NOTE | 2019-11-29 23:44 | P.CONS ---
History of Present Illness - Reason for Consult Consult date: 11/29/19 ? COVID Requesting physician: Alden Price - Chief Complaint Dizziness and weakness x few days - History of Present Illness Patient is a 54-year-old male presenting to the ER at [facility] with chief complaints of dizziness and weakness symptom has been going on for a day or 2 before he presented to hospital. Denies having any headache or URI symptoms no chest pain or shortness breath or cough which is chronic for him because of history of some smoking, the patient denies having any nausea no vomiting no abdominal pain no diarrhea no change in his smell and taste, patient apparently did have a exposure, a covid positive person. The symptom has a patient presenting to the hospital the patient had been evaluated by the ER physician on arrival to the ER the patient has been afebrile the patient how normal white count patient did have normal CRP a procalcitonin, chest x-ray has been negative for any acute infiltrate patient has been admitted to the hospital infectious disease was consulted with concern for possible viral pneumonia Review of Systems Positive point has been mentioned in the HPI rest of the systems are negative Past Medical History Past Medical History: Diabetes Mellitus, GERD/Reflux, Hyperlipidemia, Hypertension Additional Past Medical History / Comment(s): chronic back pain, has lost weight over the past year, abdominal pain, neuropathy due to diabetes,DROP FOOT (LT) wears a boot. retinopathy, mitral valve prolapse.mennigitis as child, recent fall-fx rib on lt side and has a "sore" on lower lt leg.has has steroid inj hips/wrist. carotid artery "leak" History of Any Multi-Drug Resistant Organisms: None Reported Past Surgical History: Tonsillectomy Additional Past Surgical History / Comment(s): polyp removed from stomach as a 1 y.o., lesions removed from throat positive for cancer- sx got it all -no chemo or radiation, egd,colonoscopy/polypectomy(benign)."can't rememebr if he had his appendix removed or not. 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 has an insulin pump. Smoking Status: Current every day smoker Past Alcohol Use History: Occasional Additional Past Alcohol Use History / Comment(s): 2 drinks per day Past Drug Use History: Marijuana - Past Family History Mother Family Medical History: Cancer Additional Family Medical History / Comment(s): lung Father Family Medical History: Diabetes Mellitus Additional Family Medical History / Comment(s): kst operator replacment(pig valve) Medications and Allergies Home Medications Medication Instructions Recorded Confirmed Type Ibuprofen [Motrin] 800 mg PO TID 12/30/15 11/28/19 History lisinopriL [Lisinopril] 40 mg PO DAILY 12/28/16 11/28/19 History Atorvastatin [Lipitor] 20 mg PO DAILY 01/19/17 11/28/19 History Cyclobenzaprine [Flexeril] 5 mg PO TID 01/19/17 11/28/19 History DULoxetine HCL [Cymbalta] 60 mg PO HS 01/19/17 11/28/19 History INSULIN LISPRO (For Pump) [humaLOG 0.01 units SQ-PUMP CONTINUOUS 01/19/17 11/28/19 History (For Pump)] DULoxetine HCL [Cymbalta] 30 mg PO HS 11/28/19 11/28/19 History Loratadine 10 mg PO DAILY 11/28/19 11/28/19 History Omeprazole 20 mg PO BID 11/28/19 11/28/19 History amLODIPine [Norvasc] 2.5 mg PO DAILY 11/28/19 11/28/19 History Allergies Allergy/AdvReac Type Severity Reaction Status Date / Time pregabalin [From Lyrica] Allergy Unknown Verified 11/28/19 21:01 Physical Exam Vitals: Vital Signs Temp Pulse Pulse Resp BP BP Pulse Ox 11/29/19 20:00 97.7 F 88 18 143/82 100 11/29/19 19:57 97.7 F 88 18 143/82 100 11/29/19 15:20 92 16 98/50 97 11/29/19 11:57 69 16 140/80 97 11/29/19 08:00 97.8 F 87 16 107/65 98 11/29/19 03:03 98.2 F 85 16 130/75 100 11/29/19 01:57 98.2 F 96 16 130/75 100 11/29/19 00:57 98.7 F 95 16 132/84 95 11/29/19 00:42 98.7 F 95 16 132/84 100 11/29/19 00:41 86 17 151/97 95 11/29/19 00:15 98.2 F 92 16 149/94 99 11/28/19 23:55 98.2 F 92 16 155/96 99 Intake and Output 11/29/19 11/29/19 11/30/19 14:59 22:59 06:59 Intake Total 1400 240 Balance 1400 240 Intake: IV 920 Sodium Chloride 0.9% 1, 920 000 ml @ 115 mls/hr IV . Q8H42M [facility] Rx#:[id number] Oral 480 240 Other: Voiding Method Toilet # Voids 4 GENERAL DESCRIPTION: Middle-aged male lying in bed, no distress. No tachypnea or accessory muscle of respiration use. HEENT: Shows Pallor , no scleral icterus. Oral mucous membrane is dry. No pharyngeal erythema or thrush NECK: Trachea central, no thyromegaly. LUNGS: Unlabored breathing. Clear to auscultation anteriorly. No wheeze or crackle. HEART: S1, S2, regular rate and rhythm. No loud murmur ABDOMEN: Soft, no tenderness , guarding or rigidity, no organomegaly EXTREMITIES: No edema of feet. SKIN: No rash, no masses palpable. NEUROLOGICAL: The patient is awake, alert, oriented x3, mood and affect normal. Results CBC & Chem 7: 11/29/19 14:30 11/29/19 14:30 Labs: Abnormal Lab Results - Last 24 Hours (Table) 11/29/19 11/29/19 11/29/19 Range/Units 05:49 05:49 05:49 Sodium (137-145) mmol/L Chloride (98-107) mmol/L Glucose (74-99) mg/dL POC Glucose (mg/dL) (75-99) mg/dL Hemoglobin A1c 11.7 H (4.0-6.0) % Total Protein (6.3-8.2) g/dL Triglycerides 235 H (<150) mg/dL HDL Cholesterol 37 L (40-60) mg/dL Vitamin B12 1617.0 H (200.0-944.0) pg/mL 11/29/19 11/29/19 11/29/19 Range/Units 06:15 12:01 14:30 Sodium 135 L (137-145) mmol/L Chloride 108 H (98-107) mmol/L Glucose 218 H (74-99) mg/dL POC Glucose (mg/dL) 244 H 284 H (75-99) mg/dL Hemoglobin A1c (4.0-6.0) % Total Protein 5.7 L (6.3-8.2) g/dL Triglycerides (<150) mg/dL HDL Cholesterol (40-60) mg/dL Vitamin B12 (200.0-944.0) pg/mL 11/29/19 11/29/19 Range/Units 16:56 20:11 Sodium (137-145) mmol/L Chloride (98-107) mmol/L Glucose (74-99) mg/dL POC Glucose (mg/dL) 244 H 232 H (75-99) mg/dL Hemoglobin A1c (4.0-6.0) % Total Protein (6.3-8.2) g/dL Triglycerides (<150) mg/dL HDL Cholesterol (40-60) mg/dL Vitamin B12 (200.0-944.0) pg/mL Microbiology - Last 24 Hours (Table) 11/28/19 20:31 Blood Culture - Preliminary Blood No Growth after 24 hours 11/28/19 00:01 Urine Culture - Preliminary Urine,Voided Assessment and Plan Assessment: 1- patient presented to hospital with dizziness and weakness in this patient who did have a exposure to Covid 19 infected person however patient currently do not have any fever no significant respiratory symptoms chest x-ray has been negative CRP is normal as well as Procalcitonin , clinically not behaving as Covid19 infection (1) Suspected COVID-19 virus infection Current Visit: Yes Status: Acute Code(s): Z20.828 - CONTACT W AND EXPOSURE TO H VIRAL COMMUNICABLE DISEASES SNOMED Code(s): 463809469 Plan: 1- no need for any specific therapy towards Covid 19 as the patient clinically is not behaving as viral pneumonia And the nasopharyngeal swab came back negative as well 2-we'll see the patient as needed , as currently no evidence of any infection however if any questions regarding his infectious disease care Please call us back Time with Patient: Greater than 30
[2019-11-30] MEDS: SODIUM CHLORIDE 0.9% 1,000 ML IV SCH ×2 (05:04→16:49)
[2019-11-30 06:11] LABS: Glucose,Whole Blood 356 mg/dL (75-99)
[2019-11-30 06:55] LABS: Basophils # (A) 0.1 k/uL (0-0.2); Basophils % (A) 1 %; Eosinophils # (A) 0.4 k/uL (0-0.7); Eosinophils % (A) 5 %; HCT 41.2 % (39.0-53.0); HGB 13.9 gm/dL (13.0-17.5); Lymphocytes # (A) 2.6 k/uL (1.0-4.8); Lymphocytes % (A) 32 %; MCH 30.4 pg (25.0-35.0); MCHC 33.6 g/dL (31.0-37.0); MCV 90.5 fL (80.0-100.0); Mean Platelet Volume 8.6; Monocytes # (A) 0.6 k/uL (0-1.0); Monocytes % (A) 7 %; Neutrophils # (A) 4.4 k/uL (1.3-7.7); Neutrophils % (A) 53 %; Platelet Count 186 k/uL (150-450); RBC 4.56 m/uL (4.30-5.90); RDW 13.2 % (11.5-15.5); WBC 8.3 k/uL (3.8-10.6)
[2019-11-30 07:10] LABS: African American GFR (CKD) >90 (>60 ml/min/1.73 sqM); Anion Gap 2 mmol/L; Blood Urea Nitrogen 14 mg/dL (9-20); Calcium 8.5 mg/dL (8.4-10.2); Carbon Dioxide 23 mmol/L (22-30); Chloride 110 mmol/L (98-107); Glucose 366 mg/dL (74-99); Non-African American GFR(CKD) >90 (>60 ml/min/1.73 sqM); Sodium 135 mmol/L (137-145)
[2019-11-30] MEDS: ASPIRIN 325 MG TAB PO SCH (08:25)
[2019-11-30] MEDS: HEPARIN SODIUM,PORCINE 5,000 UNIT/ML 1 ML VIAL SQ SCH ×2 (08:25→19:56)
[2019-11-30] MEDS: ATORVASTATIN 40 MG TAB PO SCH (08:25)
[2019-11-30] MEDS: PANTOPRAZOLE 40 MG TABLET PO SCH ×2 (08:25→19:56)
[2019-11-30] MEDS: LORATADINE 10 MG TAB PO SCH (08:25)
[2019-11-30] MEDS: amLODIPine 2.5 MG TAB PO SCH (08:25)
[2019-11-30] MEDS ORDERED: INSULIN PUMP TARGET GLUCOSE 1 EACH MISC MISCELLANE PRN (09:56)
[2019-11-30] MEDS ORDERED: INSULIN PUMP ACTIVE INSULIN 1 EACH MISC MISCELLANE PRN (09:56)
[2019-11-30] MEDS ORDERED: INSPUCOR MISCELLANE PRN (09:56)
[2019-11-30] MEDS ORDERED: INSULIN ASPART (NovoLOG) 100 UNIT/ML VIAL SQ PRN (09:56)
[2019-11-30] MEDS ORDERED: INSULIN PUMP BASAL RATES 1 EACH MISC MISCELLANE PRN (09:56)
[2019-11-30] MEDS: CYCLOBENZAPRINE 5 MG TAB PO SCH ×3 (10:08→19:56)
[2019-11-30] MEDS: IBUPROFEN 800 MG TAB PO SCH ×3 (10:08→19:56)
[2019-11-30 10:21] VITALS: BMI 21.9
[2019-11-30 11:49] LABS: Glucose,Whole Blood 240 mg/dL (75-99)
[2019-11-30] MEDS: INSULIN PUMP MEAL BOLUS 1 UNIT MISC MISCELLANE SCH ×3 (13:33→20:52)
--- NOTE | 2019-11-30 14:36 | P.PN ---
Subjective Progress Note Date: 11/30/19 Patient denies any focal symptoms. Still with nonspecific symptoms. No numbness or tingling or focal weakness or speech difficulty. Objective - Vital Signs Vital signs: Vital Signs Temp 97.6 F 11/30/19 08:00 Pulse 70 11/30/19 12:00 Resp 16 11/30/19 12:00 BP 140/86 11/30/19 12:00 Pulse Ox 98 11/30/19 12:00 Intake & Output 11/29/19 11/30/19 11/30/19 18:59 06:59 18:59 Intake Total 1640 Balance 1640 Weight 65.5 kg 65.5 kg Intake: IV 920 Sodium Chloride 0.9% 1, 920 000 ml @ 115 mls/hr IV . Q8H42M [facility] Rx#:[id number] Oral 720 Other: Voiding Method Toilet # Voids 4 2 - Exam Deferred. - Labs CBC & Chem 7: 11/30/19 06:05 11/30/19 06:05 Labs: Abnormal Lab Results - Last 24 Hours (Table) 11/29/19 11/29/19 11/29/19 Range/Units 05:49 05:49 14:30 Sodium 135 L (137-145) mmol/L Chloride 108 H (98-107) mmol/L Glucose 218 H (74-99) mg/dL POC Glucose (mg/dL) (75-99) mg/dL Hemoglobin A1c 11.7 H (4.0-6.0) % Total Protein 5.7 L (6.3-8.2) g/dL Vitamin B12 1617.0 H (200.0-944.0) pg/mL 11/29/19 11/29/19 11/30/19 Range/Units 16:56 20:11 06:05 Sodium 135 L (137-145) mmol/L Chloride 110 H (98-107) mmol/L Glucose 366 H (74-99) mg/dL POC Glucose (mg/dL) 244 H 232 H (75-99) mg/dL Hemoglobin A1c (4.0-6.0) % Total Protein (6.3-8.2) g/dL Vitamin B12 (200.0-944.0) pg/mL 11/30/19 11/30/19 Range/Units 06:09 11:48 Sodium (137-145) mmol/L Chloride (98-107) mmol/L Glucose (74-99) mg/dL POC Glucose (mg/dL) 356 H 240 H (75-99) mg/dL Hemoglobin A1c (4.0-6.0) % Total Protein (6.3-8.2) g/dL Vitamin B12 (200.0-944.0) pg/mL Microbiology - Last 24 Hours (Table) 11/28/19 00:01 Urine Culture - Final Urine,Voided 11/28/19 20:31 Blood Culture - Preliminary Blood No Growth after 24 hours Assessment and Plan Assessment: * Multiple nonspecific complaints including fatigue, headaches, reflux, dizziness, probably non-neurological origin. Patient has diabetes poorly controlled with possible DKA. * CT head showed hypodensity in the left anterior internal capsule, most likely old. * Hypertension * Diabetes, poorly controlled * Chronic tobacco use, smokes 2 packs per day. * Dyslipidemia. Plan: * Patient does not have any focal or lateralizing symptoms. Patient's examination is completely nonfocal. No clinical evidence of acute stroke. Abnormality noted on the computed tomography scan is probably from a remote stroke. He does have multiple vascular risk factors, which needs to be addressed aggressively. * Hemoglobin A1c 11.7, consistent with poorly controlled diabetes * B12 1617, folate 13.5, both normal. * Strict control of blood pressure. * Suggest optimize control of diabetes. Target hemoglobin A1c <7.0. * Patient strongly recommended tobacco cessation. * Start aspirin regimen daily. Patient does have acid reflux, therefore may change to aspirin 81 mg daily. * Internal medicine to manage possible DKA. * [place] virus PCR negative. * Neurology will sign off. Please call if any other concerns.
[2019-11-30 17:04] LABS: Glucose,Whole Blood 287 mg/dL (75-99)
--- NOTE | 2019-11-30 18:30 | PN ---
PROGRESS NOTE DATE OF SERVICE: 11/30/2019 This 54-year-old gentleman who was admitted with acute to subacute anterior left internal capsule hypodensity also had uncontrolled blood sugars. The patient also was suspected to have COVID-19, but that test was negative. The patient had significant contact with COVID-19. No chest pain. No palpitations. PHYSICAL EXAMINATION: Alert and oriented x3. Pulse 80, blood pressure 153/75, respiration 18, temperature 97.6, pulse ox 98% on 2 L. HEENT: Conjunctivae normal. NECK: No jugular venous distention. CARDIOVASCULAR SYSTEM: S1, S2 muffled. RESPIRATORY SYSTEM: Breath sounds diminished at the bases. No rhonchi. No crackles. ABDOMEN: Soft. LEGS: No edema. No swelling. NERVOUS SYSTEM: No focal deficit. LABS: Labs at this time show CBC within normal limits. Sodium 135. Sugars are noted. ASSESSMENT: 1. Acute to subacute anterior left internal capsule hypodensity, possible subacute infarct and stroke. 2. Possible acute COVID-19 infection. COVID-19 test is negative; could be false- negative. 3. Possible acute diabetic ketoacidosis, present on admission, improved. 4. Hyponatremia. 5. Diabetes mellitus, type 2, uncontrolled with hyperglycemia. 6. Increased white count. 7. Hypertension. 8. Hyperlipidemia. 9. Chronic back pain, degenerative joint disease. 10.History of peripheral neuropathy secondary to diabetes mellitus, type 2. 11.History of retinopathy. 12.History of mitral valve prolapse. 13.History of meningitis as a child. 14.History of tonsillectomy. 15.History of stomach polyps. 16.History of apparent throat cancer. 17.History of depression. 18.History of continued ongoing nicotine dependence. 19.History of tetrahydrocannabinol. RECOMMENDATIONS AND DISCUSSION: I recommend to continue current medications, continue with the monitoring, symptomatic treatment. Otherwise, repeat labs. Monitor blood sugars closely. Recommend diabetic education and continued followup in the outpatient setting for better control of blood sugars. The patient is seeing Dr. Crowley. Otherwise, we will monitor closely. Further recommendations to follow. MMODL / IJN: [id number] /
[2019-11-30] MEDS: DULoxetine HCL 60 MG CAPSULE.DR PO SCH (19:56)
[2019-11-30] MEDS: DULoxetine HCL 30 MG CAPSULE.DR PO SCH (19:56)
[2019-11-30 20:57] LABS: Glucose,Whole Blood 168 mg/dL (75-99)
--- NOTE | 2019-12-01 01:12 | PN ---
PROGRESS NOTE DATE OF SERVICE: 11/30/2019 REASON FOR FOLLOWUP: Question of acute COVID-19. INTERVAL HISTORY: The patient is currently afebrile. The patient has been breathing comfortably. Denies having any chest pain or shortness of breath. Minimal cough. No nausea, no vomiting. No abdominal pain or diarrhea. PHYSICAL EXAMINATION: Blood pressure 135/75 with a pulse of 82, temperature 98.1. He is 98% on room air. General description is a middle-aged male lying in bed in no distress. RESPIRATORY SYSTEM: Unlabored breathing, decreased intensity of breath sounds. No wheeze. HEART: S1, S2. Regular rate and rhythm. ABDOMEN: Soft, no tenderness. LABS: Hemoglobin is 13.9, white count 8.3, BUN of 14, creatinine 0.75. DIAGNOSTIC IMPRESSION AND PLAN: Patient admitted to the hospital with dizziness, weakness in this patient who did have exposure to co-worker with COVID-19 about a week ago, so far testing has been negative. The patient needs to be in isolation for at least another week and if no symptoms should be able to go back to work. Currently no need for any specific therapy for COVID- 19 as no evidence of any pneumonia. MMODL / IJN: [id number] /
[2019-12-01 04:54] VITALS: RESP 18
[2019-12-01 06:14] LABS: Glucose,Whole Blood 210 mg/dL (75-99)
[2019-12-01] MEDS: SODIUM CHLORIDE 0.9% 1,000 ML IV SCH (06:58)
[2019-12-01 07:19] LABS: Basophils # (A) 0.1 k/uL (0-0.2); Basophils % (A) 1 %; Eosinophils # (A) 0.4 k/uL (0-0.7); Eosinophils % (A) 4 %; HGB 13.4 gm/dL (13.0-17.5); Lymphocytes # (A) 2.8 k/uL (1.0-4.8); Lymphocytes % (A) 30 %; MCH 30.6 pg (25.0-35.0); MCHC 34.3 g/dL (31.0-37.0); MCV 89.1 fL (80.0-100.0); Mean Platelet Volume 8.8; Monocytes # (A) 0.6 k/uL (0-1.0); Monocytes % (A) 6 %; Neutrophils # (A) 5.2 k/uL (1.3-7.7); Neutrophils % (A) 57 %; Platelet Count 189 k/uL (150-450); RBC 4.38 m/uL (4.30-5.90); WBC 9.1 k/uL (3.8-10.6)
[2019-12-01 07:29] LABS: African American GFR (CKD) >90 (>60 ml/min/1.73 sqM); Anion Gap 2 mmol/L; Blood Urea Nitrogen 14 mg/dL (9-20); Calcium 8.3 mg/dL (8.4-10.2); Carbon Dioxide 28 mmol/L (22-30); Chloride 105 mmol/L (98-107); Glucose 241 mg/dL (74-99); Non-African American GFR(CKD) >90 (>60 ml/min/1.73 sqM); Potassium 3.7 mmol/L (3.5-5.1); Sodium 135 mmol/L (137-145)
[2019-12-01] MEDS: ASPIRIN 325 MG TAB PO SCH (07:57)
[2019-12-01] MEDS: PANTOPRAZOLE 40 MG TABLET PO SCH (07:57)
[2019-12-01] MEDS: HEPARIN SODIUM,PORCINE 5,000 UNIT/ML 1 ML VIAL SQ SCH (07:57)
[2019-12-01] MEDS: CYCLOBENZAPRINE 5 MG TAB PO SCH (07:57)
[2019-12-01] MEDS: IBUPROFEN 800 MG TAB PO SCH (07:57)
[2019-12-01] MEDS: ATORVASTATIN 40 MG TAB PO SCH (07:57)
[2019-12-01] MEDS: amLODIPine 2.5 MG TAB PO SCH (07:57)
[2019-12-01] MEDS: INSULIN PUMP MEAL BOLUS 1 UNIT MISC MISCELLANE SCH (07:58)
[2019-12-01] MEDS: LORATADINE 10 MG TAB PO SCH (07:58)
[2019-12-01 09:42] VITALS: PULSE 84; TEMP 97.4
[2019-12-01 11:28] VITALS: BP 142/80
--- NOTE | 2019-12-04 09:10 | P.DS ---
Providers Date of admission: 11/29/19 00:17 Expected date of discharge: 12/01/19 Attending physician: Benji Oro Consults: 11/28/19 22:56 Consult Physician Urgent Consulting Provider: Pillo Raphael Consult Reason/Comments: subacute cva Do you want consulting provider notified?: Yes 11/29/19 00:01 Consult Physician Routine Consulting Provider: Donta Grullon Consult Reason/Comments: covid?? Do you want consulting provider notified?: Yes Primary care physician: Desmond Pierce Hospital Course: Final diagnosis Acute to subacute anterior left internal capsule hypodensity, possible subacute infarct and stroke Possible acute Covid 19 infection. Covid 19 testing was negative, could be false negative Possible acute diabetic ketoacidosis, present on admission, improved Hyponatremia Diabetes mellitus type 2, uncontrolled with hyperglycemia Increased white count Hypertension Hyperlipidemia Chronic back pain, degenerative joint disease history of peripheral neuropathy secondary to diabetes mellitus type 2 history of retinopathy History of mitral valve prolapse History of meningitis as a child History of tonsillectomy History of stomach polyps History of apparent throat cancer History of depression History of continued ongoing nicotine dependence History of THC Discharge disposition Patient is being discharged in a stable condition with guarded prognosis to home. Patient will follow-up with Dr. Pierce in the outpatient setting upon discharge. Total time taken is greater than 35 minutes. History of present illness This is a 54-year-old female who was recently admitted with acute to subacute anterior left internal capsule hypodensity and also was found to have uncontrolled blood sugars and was being closely monitored. Patient was also suspected to have Covid 19 although testing was negative. Patient states he had significant contact with those who had Covid 19. Patient instructed to continue to isolate himself from additional 1-2 weeks upon discharge. During hospitalization patient was evaluated by neuro along with infectious disease and underwent echo during hospitalization showing overall left ventricular systolic function is normal with an EF between 55 and 60% with some mild tricuspid regurgitation present. Patient evaluated by neurology and had a CT of the head showing a hypodensity in the left anterior internal capsule which is most likely old with no evidence of acute stroke. Patient instructed to follow-up with primary care provider for poorly controlled diabetes and hypertension and also instructed to continue to avoid tobacco and will start on an aspirin daily in the outpatient setting. Currently no reports of chest pain, shortness of breath, or palpitations. Patient is afebrile. No reports of nausea or vomiting and patient is tolerating diet. On exam vital signs are stable. Temp is 97.4F, pulse is 84, respirations are 18, blood pressure is 180/88, oxygen saturation is 98% on room air. Cardio S1, S2 are muffled. Respiratory system shows diminished breath sounds at the bases with no wheezing or rhonchi noted. Abdomen is soft and nontender. Nervous system shows no focal deficits. Please refer to medication reconciliation sheet for a list of medications. Patient Condition at Discharge: Stable Plan - Discharge Summary Discharge Rx Participant: No New Discharge Prescriptions: New Aspirin EC [Ecotrin Low Dose] 81 mg PO DAILY #30 tablet. Continue Ibuprofen [Motrin] 800 mg PO TID lisinopriL 40 mg PO DAILY INSULIN LISPRO (For Pump) [humaLOG (For Pump)] 0.01 units SQ-PUMP CONTINUOUS DULoxetine HCL [Cymbalta] 60 mg PO HS Cyclobenzaprine [Flexeril] 5 mg PO TID Atorvastatin [Lipitor] 20 mg PO DAILY amLODIPine [Norvasc] 2.5 mg PO DAILY DULoxetine HCL [Cymbalta] 30 mg PO HS Omeprazole 20 mg PO BID Loratadine 10 mg PO DAILY Discharge Medication List Ibuprofen [Motrin] 800 mg PO TID 12/30/15 [History] lisinopriL 40 mg PO DAILY 12/28/16 [History] Atorvastatin [Lipitor] 20 mg PO DAILY 01/19/17 [History] Cyclobenzaprine [Flexeril] 5 mg PO TID 01/19/17 [History] DULoxetine HCL [Cymbalta] 60 mg PO HS 01/19/17 [History] INSULIN LISPRO (For Pump) [humaLOG (For Pump)] 0.01 units SQ-PUMP CONTINUOUS 01/19/17 [History] DULoxetine HCL [Cymbalta] 30 mg PO HS 11/28/19 [History] Loratadine 10 mg PO DAILY 11/28/19 [History] Omeprazole 20 mg PO BID 11/28/19 [History] amLODIPine [Norvasc] 2.5 mg PO DAILY 11/28/19 [History] Aspirin EC [Ecotrin Low Dose] 81 mg PO DAILY #30 tablet. 12/01/19 [Rx] Follow up Appointment(s)/Referral(s): Desmond Pierce III, MD [Primary Care Provider] - 12/05/19 8:00 am (with Jose Roberto Leija NP) Ambulatory/Diagnostic Orders: Basic Metabolic Panel [LAB.AMB] Time Frame: 2 Days, Location: None Selected Complete Blood Count w/diff [LAB.AMB] Time Frame: 2 Days, Location: None Selected Patient Instructions/Handouts: Ischemic Stroke (DC) Activity/Diet/Wound Care/Special Instructions: Activity limited until follow up continue to isolate for an additional 1-2 weeks encourage fluids and rest follow up with primary care provider upon discharge continue current diet repeat labs in 2-3 days Discharge Disposition: HOME SELF-CARE
--- NOTE | 2019-12-04 17:08 | CDI ---
Documentation Clarification Form Date: 12/04/2019 04:20:40 PM From: Jillian Liu RN, CCDS Admit Date: 11/29/2019 12:17:00 AM Patient Name: Andrea Cervantes Visit Number: [id number] Discharge Date: 12/01/2019 11:40:00 AM ATTENTION: The Clinical Documentation Specialists (CDI) and [facility] Coding Staff appreciate your assistance in clarifying documentation. Please respond to the clarification below the line at the bottom and electronically sign. The CDI & [facility] Coding staff will review the response and follow-up if needed. Please note: Queries are made part of the Legal Health Record. If you have any questions, please contact the author of this message via ITS. Dr. Alden Price Per discharge summary: Possible acute Covid-19 infection. Covid-19 testing was negative, could be false negative. 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 He has a baseline cough states it is not worse. Patient reports that he had positive COVID exposure. The COVID -19 test obtained on 11/27 (COVID PCR) 11/27 Chest x-ray: Negative exam VS in ED 11/27 142/79 109 19 98.2 99 % RA Labs on admission 11/27: WBC 10.9 Procalcitonin 0.04, CRP <5.0, LDH 387, Feritin 159,1 Treatment Isolation precautions 11/28 ID consult: Patient presented to hospital with dizziness and weakness in this patient who did have a exposure to Covid 19 infected person however patient current do not have any fever no significant respiratory symptoms chest x-ray has been negative CRP is normal as well as Procalcitonin, Clinically not behaving as Covid-19 infection 11/30 ID: exposure to co-worker with Covid-19 about a week ago, so far testing has been negative. The patient needs to be in isolation for at least another week and if no symptoms able to go back to work. Currently no need for any specific therapy for COVID-19 as no evidence of any pneumonia. In order to capture the severity of condition, please clarify the COVID-19 status: COVID Ruled Out False negative, treating for COVID-19 Infection Other, Please specify (Last Form Revision: July 2019) False negative, treating for COVID-19 Infection MTDD
== END 2019-12-01 11:40 | disposition home or self-care (01) | DRG 637 ==
LOC: EC 19:29 → 3SCARD 11-29 00:17
PROVIDERS: ADMIT Hospitalist; ATTEND Hospitalist
DX: E11.10 Type 2 diabetes mellitus with ketoacidosis without coma (principal); U07.1 COVID-19; I63.9 Cerebral infarction, unspecified; E87.1 Hypo-osmolality and hyponatremia; E11.319 Type 2 diabetes mellitus with unspecified diabetic retinopathy without macular edema; E11.42 Type 2 diabetes mellitus with diabetic polyneuropathy; E78.5 Hyperlipidemia, unspecified; F17.210 Nicotine dependence, cigarettes, uncomplicated; G89.29 Other chronic pain; I10 Essential (primary) hypertension; I34.1 Nonrheumatic mitral (valve) prolapse; K21.9 Gastro-esophageal reflux disease without esophagitis; F32.9 Major depressive disorder, single episode, unspecified; M21.372 Foot drop, left foot; M54.9 Dorsalgia, unspecified; D72.829 Elevated white blood cell count, unspecified; R29.700 NIHSS score 0; I77.89 Other specified disorders of arteries and arterioles; Z96.41 Presence of insulin pump (external) (internal); Z86.61 Personal history of infections of the central nervous system; Z85.819 Personal history of malignant neoplasm of unspecified site of lip, oral cavity, and pharynx; Z79.4 Long term (current) use of insulin; Z79.82 Long term (current) use of aspirin; Z79.899 Other long term (current) drug therapy; Z88.8 Allergy status to other drugs, medicaments and biological substances; Z90.89 Acquired absence of other organs; Z87.19 Personal history of other diseases of the digestive system; Z83.3 Family history of diabetes mellitus; Z80.1 Family history of malignant neoplasm of trachea, bronchus and lung; Z86.73 Personal history of transient ischemic attack (TIA), and cerebral infarction without residual deficits
CPT/HCPCS: 36415; 70450; 70496; 70498; 71045; 80048; 80053; 80061; 80306; 81001; 82009; 82607; 82728; 82746; 83036; 83605; 83615; 83735; 84145; 84484; 85025; 85379; 85610; 85652; 85730; 86140; 86780; 87040; 87086; 93005; 93306; 96360; 99285

== ENCOUNTER 2020-05-21 17:25 | Inpatient (IN) | payer OTHER ==
[2020-05-21 17:41] LABS: Glucose,Whole Blood >600 mg/dL (75-99)
[2020-05-21] MEDS ORDERED: SODIUM CHLORIDE 0.9% 1,000 ML IV STA ×3 (17:57→18:38)
[2020-05-21] MEDS ORDERED: ALBUTEROL HFA INHALER INHALATION STA (17:57)
[2020-05-21] MEDS ORDERED: ASPIRIN 81 MG PO STA (17:59)
[2020-05-21] MEDS ORDERED: ONDANSETRON 4 MG/2 ML VIAL IVP STA (18:01)
[2020-05-21 18:30] LABS: ALT 31 U/L (4-49); AST 21 U/L (17-59); African American GFR (CKD) 44 (>60 ml/min/1.73 sqM); Albumin 5.2 g/dL (3.5-5.0); Alkaline Phosphatase 110 U/L (38-126); Blood Urea Nitrogen 33 mg/dL (9-20); Calcium 9.8 mg/dL (8.4-10.2); Chloride 90 mmol/L (98-107); Non-African American GFR(CKD) 38 (>60 ml/min/1.73 sqM); Potassium 5.4 mmol/L (3.5-5.1); Sodium 133 mmol/L (137-145); Total Bilirubin 0.6 mg/dL (0.2-1.3); Total Protein 8.2 g/dL (6.3-8.2)
[2020-05-21 18:33] LABS: Carbon Dioxide <5 mmol/L (22-30)
[2020-05-21 18:41] LABS: HCT 53.8 % (39.0-53.0); HGB 17.7 gm/dL (13.0-17.5); RBC 5.66 m/uL (4.30-5.90); WBC 33.6 k/uL (3.8-10.6)
[2020-05-21 18:42] LABS: MCH 31.3 pg (25.0-35.0); MCHC 32.9 g/dL (31.0-37.0); MCV 95.2 fL (80.0-100.0); Mean Platelet Volume 8.4; Platelet Count 276 k/uL (150-450); RDW 12.5 % (11.5-15.5)
--- NOTE | 2020-05-21 18:44 | ED ---
General Adult HPI - General Chief complaint: Shortness of Breath Stated complaint: vomiting/headaches Time Seen by Provider: 05/21/20 17:45 Source: patient Mode of arrival: ambulatory Limitations: no limitations - History of Present Illness Initial comments: This 55-year-old male presents with several complaints. He does complain of some shortness of breath as well as some chest pain. He states that the pain is in his left chest and was pressure-like at times. He's had a slight cough at times with brownish production. He denies ever having the covert virus in the past and denies any cold exposure. He also complains of nausea, vomiting, diarrhea, and weakness. He's had the symptoms for the last 3-4 days. He also is a diabetic and states that he was on some steroids for some shoulder pain and thinks that this may have caused his blood sugar to run high. He states that it was over 600. He is on an insulin pump but states that this does not seem to work. He is had a decreased appetite. He denies any loss of taste or smell. He denies any abdominal pain. He denies any leg pain or swelling or history of DVT or PE. He does relate having a stroke in the past but denies any known cardiac disease. He does utilize tobacco but denies any known COPD or asthma. No other complaints or modifying factors. - Related Data Home Medications Medication Instructions Recorded Confirmed Ibuprofen [Motrin] 800 mg PO TID PRN 12/30/15 05/21/20 lisinopriL 40 mg PO DAILY 12/28/16 05/21/20 Atorvastatin [Lipitor] 20 mg PO DAILY 01/19/17 05/21/20 Cyclobenzaprine [Flexeril] 5 mg PO TID 01/19/17 05/21/20 DULoxetine HCL [Cymbalta] 60 mg PO HS 01/19/17 05/21/20 INSULIN LISPRO (For Pump) [humaLOG 0.01 units SQ-PUMP CONTINUOUS 01/19/17 05/21/20 (For Pump)] DULoxetine HCL [Cymbalta] 30 mg PO HS 11/28/19 05/21/20 Loratadine 10 mg PO DAILY 11/28/19 05/21/20 Omeprazole 20 mg PO BID 11/28/19 05/21/20 amLODIPine [Norvasc] 2.5 mg PO DAILY 11/28/19 05/21/20 Previous Rx's Medication Instructions Recorded Aspirin EC [Ecotrin Low Dose] 81 mg PO DAILY #30 tablet. 12/01/19 Allergies Allergy/AdvReac Type Severity Reaction Status Date / Time pregabalin [From Lyrica] Allergy Unknown Verified 05/21/20 19:45 Review of Systems ROS Statement: Those systems with pertinent positive or pertinent negative responses have been documented in the HPI. ROS Other: All systems not noted in ROS Statement are negative. Past Medical History Past Medical History: Diabetes Mellitus, GERD/Reflux, Hyperlipidemia, Hypertension Additional Past Medical History / Comment(s): chronic back pain, has lost weight over the past year, abdominal pain, neuropathy due to diabetes,DROP FOOT (LT) wears a boot. retinopathy, mitral valve prolapse.mennigitis as child, recent fall-fx rib on lt side and has a "sore" on lower lt leg.has has steroid inj hips/wrist. carotid artery "leak" History of Any Multi-Drug Resistant Organisms: None Reported Past Surgical History: Tonsillectomy Additional Past Surgical History / Comment(s): polyp removed from stomach as a 1 y.o., lesions removed from throat positive for cancer- sx got it all -no chemo or radiation, egd,colonoscopy/polypectomy(benign)."can't rememebr if he had his appendix removed or not. Past Anesthesia/Blood Transfusion Reactions: No Reported Reaction Past Psychological History: Depression Smoking Status: Current every day smoker Past Alcohol Use History: Occasional Past Drug Use History: Marijuana - Past Family History Mother Family Medical History: Cancer Additional Family Medical History / Comment(s): lung Father Family Medical History: Diabetes Mellitus Additional Family Medical History / Comment(s): chainer replacment(pig valve) General Exam - General Exam Comments Initial Comments: GENERAL: The patient is well nourished but dehydrated. VITAL SIGNS: Heart rate, blood pressure, respiratory rate reviewed as recorded in nurse's notes. EYES: Pupils are round and reactive. Extraocular movements are intact. No conjunctival / lid redness or swelling. ENT: No external evidence of injury, swelling, or ecchymosis. Airway is patent. Throat is clear. NECK: Nontender. No swelling or evidence of injury. No subcutaneous emphysema. Trachea is midline. No thyroid mass. HEART: Regular rate and rhythm. Good peripheral pulses. LUNGS/CHEST: Breath sounds clear and equal bilaterally. No rales, rhonchi, or wheezes. No ecchymosis, subcutaneous emphysema, or tenderness. ABDOMEN: Abdomen soft without tenderness. No palpable masses or organomegaly. No peritoneal signs. No abdominal wall swelling or ecchymosis. EXTREMITIES: No extremity tenderness. Normal muscle tone and function. No thoracolumbar tenderness. NEUROLOGIC: Sensation is grossly intact. Cranial nerve exam reveals face is symmetrical, tongue is midline, speech is clear. SKIN: No abrasions or ecchymosis is noted. No induration or masses noted. Decreased skin turgor noted. PSYCHIATRIC: Alert and oriented. Appropriate behavior and judgment. Limitations: no limitations Course Vital Signs 05/21/20 05/21/20 05/21/20 17:29 18:45 19:30 Temperature 94.5 F L Pulse Rate 110 H 105 H 102 H Respiratory 22 20 22 Rate Blood Pressure 132/78 164/73 151/71 O2 Sat by Pulse 100 99 100 Oximetry 05/21/20 20:00 Temperature 97.8 F Pulse Rate 111 H Respiratory 24 Rate Blood Pressure 141/75 O2 Sat by Pulse 100 Oximetry Medical Decision Making - Medical Decision Making The patient was seen and examined. All diagnostics were reviewed. The patient was placed on a spring former machine and this does show sinus tachycardia. His EKG is done and this shows a sinus tachycardia at a rate of 110. There is no acute ST-T wave changes identified. There is a GA interval of 132, QRS duration of 84, and QTc interval 470. An IV is established and he is thoroughly hydrated. Receives 2 L of 0.9 normal saline. He is started on an insulin drip. He received Zofran 8 mg IV for his nausea. He also receives an aspirin orally. The patient was initially admitted to the intensive care unit. No beds were available in the ICU so he was held in the emergency department. The patient's blood sugar did come down nicely and is feeling markedly improved. It is felt as though he is now stable to be transferred to the telemetry unit instead. Upon discussion with the irish moss gatherer earlier, they were agreeable to this option since the ICU is full. Orders changed in the computer. Patient will be transferred to 3 S./telemetry. - Lab Data Result diagrams: 05/21/20 18:06 05/21/20 18:06 Lab Results 05/21/20 05/21/20 05/21/20 Range/Units 17:39 18:06 18:06 WBC 33.6 H (3.8-10.6) k/uL RBC 5.66 (4.30-5.90) m/uL Hgb 17.7 H (13.0-17.5) gm/dL Hct 53.8 H (39.0-53.0) % MCV 95.2 (80.0-100.0) fL MCH 31.3 (25.0-35.0) pg MCHC 32.9 (31.0-37.0) g/dL RDW 12.5 (11.5-15.5) % Plt Count 276 (150-450) k/uL MPV 8.4 Neutrophils % (Manual) 84 % Band Neuts % (Manual) 3 % Lymphocytes % (Manual) 7 % Monocytes % (Manual) 6 % Eosinophils % (Manual) 1 % Metamyelocytes % 1 % Myelocytes % 1 % Neutrophils # (Manual) 29.20 H (1.3-7.7) k/uL Lymphocytes # (Manual) 2.35 (1.0-4.8) k/uL Monocytes # (Manual) 2.02 H (0-1.0) k/uL Eosinophils # (Manual) 0.34 (0-0.7) k/uL Metamyelocytes # (Man) 0.34 H (0) k/uL Myelocytes # (Manual) 0.34 H (0) k/uL Nucleated RBCs 0 (0-0) /100 WBC Manual Slide Review Performed PT 10.7 (9.0-12.0) sec INR 1.0 (<1.2) APTT 23.9 (22.0-30.0) sec D-Dimer 0.31 (<0.60) mg/L FEU Sodium (137-145) mmol/L Potassium (3.5-5.1) mmol/L Chloride (98-107) mmol/L Carbon Dioxide (22-30) mmol/L Anion Gap mmol/L BUN (9-20) mg/dL Creatinine (0.66-1.25) mg/dL Est GFR (CKD-EPI)AfAm (>60 ml/min/1.73 sqM) Est GFR (CKD-EPI)NonAf (>60 ml/min/1.73 sqM) Glucose (74-99) mg/dL POC Glucose (mg/dL) >600 H (75-99) mg/dL POC Glu Television And Radio Repairer ID Gigi Uriarte Lactic Ac Sepsis Rflx Plasma Lactic Acid Matt (0.7-2.0) mmol/L Calcium (8.4-10.2) mg/dL Total Bilirubin (0.2-1.3) mg/dL AST (17-59) U/L ALT (4-49) U/L Alkaline Phosphatase (38-126) U/L Troponin I (0.000-0.034) ng/mL NT-Pro-B Natriuret Pep pg/mL Total Protein (6.3-8.2) g/dL Albumin (3.5-5.0) g/dL Acetone, Qual (Negative) Coronavirus (PCR) (Not Detectd) 05/21/20 05/21/20 05/21/20 Range/Units 18:06 18:06 18:06 WBC (3.8-10.6) k/uL RBC (4.30-5.90) m/uL Hgb (13.0-17.5) gm/dL Hct (39.0-53.0) % MCV (80.0-100.0) fL MCH (25.0-35.0) pg MCHC (31.0-37.0) g/dL RDW (11.5-15.5) % Plt Count (150-450) k/uL MPV Neutrophils % (Manual) % Band Neuts % (Manual) % Lymphocytes % (Manual) % Monocytes % (Manual) % Eosinophils % (Manual) % Metamyelocytes % % Myelocytes % % Neutrophils # (Manual) (1.3-7.7) k/uL Lymphocytes # (Manual) (1.0-4.8) k/uL Monocytes # (Manual) (0-1.0) k/uL Eosinophils # (Manual) (0-0.7) k/uL Metamyelocytes # (Man) (0) k/uL Myelocytes # (Manual) (0) k/uL Nucleated RBCs (0-0) /100 WBC Manual Slide Review PT (9.0-12.0) sec INR (<1.2) APTT (22.0-30.0) sec D-Dimer (<0.60) mg/L FEU Sodium 133 L (137-145) mmol/L Potassium 5.4 H (3.5-5.1) mmol/L Chloride 90 L (98-107) mmol/L Carbon Dioxide <5 L* (22-30) mmol/L Anion Gap mmol/L BUN 33 H (9-20) mg/dL Creatinine 1.92 H (0.66-1.25) mg/dL Est GFR (CKD-EPI)AfAm 44 (>60 ml/min/1.73 sqM) Est GFR (CKD-EPI)NonAf 38 (>60 ml/min/1.73 sqM) Glucose 717 H* (74-99) mg/dL POC Glucose (mg/dL) (75-99) mg/dL POC Glu Television And Radio Repairer ID Lactic Ac Sepsis Rflx Plasma Lactic Acid Matt 5.4 H* (0.7-2.0) mmol/L Calcium 9.8 (8.4-10.2) mg/dL Total Bilirubin 0.6 (0.2-1.3) mg/dL AST 21 (17-59) U/L ALT 31 (4-49) U/L Alkaline Phosphatase 110 (38-126) U/L Troponin I <0.012 (0.000-0.034) ng/mL NT-Pro-B Natriuret Pep pg/mL Total Protein 8.2 (6.3-8.2) g/dL Albumin 5.2 H (3.5-5.0) g/dL Acetone, Qual Positive (Negative) Coronavirus (PCR) (Not Detectd) 05/21/20 05/21/20 05/21/20 Range/Units 18:06 18:32 18:44 WBC (3.8-10.6) k/uL RBC (4.30-5.90) m/uL Hgb (13.0-17.5) gm/dL Hct (39.0-53.0) % MCV (80.0-100.0) fL MCH (25.0-35.0) pg MCHC (31.0-37.0) g/dL RDW (11.5-15.5) % Plt Count (150-450) k/uL MPV Neutrophils % (Manual) % Band Neuts % (Manual) % Lymphocytes % (Manual) % Monocytes % (Manual) % Eosinophils % (Manual) % Metamyelocytes % % Myelocytes % % Neutrophils # (Manual) (1.3-7.7) k/uL Lymphocytes # (Manual) (1.0-4.8) k/uL Monocytes # (Manual) (0-1.0) k/uL Eosinophils # (Manual) (0-0.7) k/uL Metamyelocytes # (Man) (0) k/uL Myelocytes # (Manual) (0) k/uL Nucleated RBCs (0-0) /100 WBC Manual Slide Review PT (9.0-12.0) sec INR (<1.2) APTT (22.0-30.0) sec D-Dimer (<0.60) mg/L FEU Sodium (137-145) mmol/L Potassium (3.5-5.1) mmol/L Chloride (98-107) mmol/L Carbon Dioxide (22-30) mmol/L Anion Gap mmol/L BUN (9-20) mg/dL Creatinine (0.66-1.25) mg/dL Est GFR (CKD-EPI)AfAm (>60 ml/min/1.73 sqM) Est GFR (CKD-EPI)NonAf (>60 ml/min/1.73 sqM) Glucose (74-99) mg/dL POC Glucose (mg/dL) >600 H (75-99) mg/dL POC Glu Television And Radio Repairer ID Hiram Samuels Lactic Ac Sepsis Rflx Y Plasma Lactic Acid Matt (0.7-2.0) mmol/L Calcium (8.4-10.2) mg/dL Total Bilirubin (0.2-1.3) mg/dL AST (17-59) U/L ALT (4-49) U/L Alkaline Phosphatase (38-126) U/L Troponin I (0.000-0.034) ng/mL NT-Pro-B Natriuret Pep 109 pg/mL Total Protein (6.3-8.2) g/dL Albumin (3.5-5.0) g/dL Acetone, Qual (Negative) Coronavirus (PCR) (Not Detectd) 05/21/20 05/21/20 05/21/20 Range/Units 18:55 19:47 20:53 WBC (3.8-10.6) k/uL RBC (4.30-5.90) m/uL Hgb (13.0-17.5) gm/dL Hct (39.0-53.0) % MCV (80.0-100.0) fL MCH (25.0-35.0) pg MCHC (31.0-37.0) g/dL RDW (11.5-15.5) % Plt Count (150-450) k/uL MPV Neutrophils % (Manual) % Band Neuts % (Manual) % Lymphocytes % (Manual) % Monocytes % (Manual) % Eosinophils % (Manual) % Metamyelocytes % % Myelocytes % % Neutrophils # (Manual) (1.3-7.7) k/uL Lymphocytes # (Manual) (1.0-4.8) k/uL Monocytes # (Manual) (0-1.0) k/uL Eosinophils # (Manual) (0-0.7) k/uL Metamyelocytes # (Man) (0) k/uL Myelocytes # (Manual) (0) k/uL Nucleated RBCs (0-0) /100 WBC Manual Slide Review PT (9.0-12.0) sec INR (<1.2) APTT (22.0-30.0) sec D-Dimer (<0.60) mg/L FEU Sodium (137-145) mmol/L Potassium (3.5-5.1) mmol/L Chloride (98-107) mmol/L Carbon Dioxide (22-30) mmol/L Anion Gap mmol/L BUN (9-20) mg/dL Creatinine (0.66-1.25) mg/dL Est GFR (CKD-EPI)AfAm (>60 ml/min/1.73 sqM) Est GFR (CKD-EPI)NonAf (>60 ml/min/1.73 sqM) Glucose (74-99) mg/dL POC Glucose (mg/dL) >600 H 485 H (75-99) mg/dL POC Glu Television And Radio Repairer ID Nguyen, Denise Lactic Ac Sepsis Rflx Plasma Lactic Acid Matt (0.7-2.0) mmol/L Calcium (8.4-10.2) mg/dL Total Bilirubin (0.2-1.3) mg/dL AST (17-59) U/L ALT (4-49) U/L Alkaline Phosphatase (38-126) U/L Troponin I (0.000-0.034) ng/mL NT-Pro-B Natriuret Pep pg/mL Total Protein (6.3-8.2) g/dL Albumin (3.5-5.0) g/dL Acetone, Qual (Negative) Coronavirus (PCR) Not Detected (Not Detectd) Disposition Clinical Impression: Chest pain, Unstable angina, Diabetic ketoacidosis, Hyperglycemia, Acidosis, Dyspnea, Nausea vomiting and diarrhea, Weakness, Diabetes, Acute kidney injury Disposition: ADMITTED IP TO THIS HOSP Condition: Fair Is patient prescribed a controlled substance at d/c from ED?: No Time of Disposition: 21:00 Decision Date: 05/21/20 Decision Time: 21:00
[2020-05-21 18:45] LABS: D-Dimer 0.31 mg/L FEU (<0.60); Glucose 717 mg/dL (74-99); Partial Thromboplastin Time 23.9 sec (22.0-30.0); Prothrombin Time 10.7 sec (9.0-12.0)
--- NOTE | 2020-05-21 18:47 | XR ---
EXAMINATION TYPE: XR chest 1V portable DATE OF EXAM: 05/21/2020 COMPARISON: 11/28/2019. HISTORY: Shortness of breath. TECHNIQUE: Single frontal view of the chest is obtained. FINDINGS: There is no focal air space opacity, pleural effusion, or pneumothorax seen. The cardiac silhouette size is within normal limits. The osseous structures are intact. IMPRESSION: No acute process.
[2020-05-21] MEDS: INSULIN REGULAR 100 UNIT in SODIUM CHLORIDE 0.9% 100 ML IV SCH (18:48)
[2020-05-21 18:51] LABS: Glucose,Whole Blood >600 mg/dL (75-99)
[2020-05-21 18:57] LABS: Band Neutrophils % 3 %; Eosinophils # (M) 0.34 k/uL (0-0.7); Lymphocytes # (M) 2.35 k/uL (1.0-4.8); Metamyelocytes # (M) 0.34 k/uL (0); Metamyelocytes % 1 %; Monocytes # (M) 2.02 k/uL (0-1.0); Myelocytes # (M) 0.34 k/uL (0); Myelocytes % 1 %; Neutrophils % (M) 84 %; Nucleated Red Blood Cells 0 /100 WBC (0-0); Total Cells Counted 200
[2020-05-21] MEDS ORDERED: PANTOPRAZOLE 40 MG/10 ML VIAL IVP STA (19:13)
[2020-05-21 19:49] LABS: Glucose,Whole Blood >600 mg/dL (75-99)
[2020-05-21 20:54] LABS: Glucose,Whole Blood 485 mg/dL (75-99)
[2020-05-21] MEDS ORDERED: ONDANSETRON 4 MG/2 ML VIAL IVP PRN (20:54)
[2020-05-21] MEDS ORDERED: METOCLOPRAMIDE 5 MG/ML 2 ML VIAL IVP PRN (20:54)
[2020-05-21] MEDS ORDERED: MORPHINE SULFATE 2 MG/ML SYRINGE IVP PRN (20:56)
[2020-05-21] MEDS: SODIUM CHLORIDE 0.9% 1,000 ML IV SCH (21:40)
[2020-05-21] MEDS: DULoxetine HCL 60 MG CAPSULE.DR PO SCH (21:50)
[2020-05-21 21:51] LABS: Glucose,Whole Blood 486 mg/dL (75-99)
[2020-05-21] MEDS: DULoxetine HCL 30 MG CAPSULE.DR PO SCH (21:51)
[2020-05-21 22:53] LABS: Appearance,Urine Clear (Clear); Bilirubin,Urine Negative (Negative); Blood,Urine Small (Negative); Color,Urine Light Yellow; Glucose,Urine (UA) 4+ (Negative); Hyaline Casts,Urine 76 /lpf (0-2); Leukocyte Esterase,Urine Negative (Negative); Mucus,Urine Rare /hpf; Nitrite,Urine Negative (Negative); Protein,Urine 1+ (Negative); RBC,Urine 2 /hpf (0-5); Specific Gravity,Urine 1.018 (1.001-1.035); Squamous Epithelial Cell,Urine 1 /hpf (0-4); Urobilinogen,Urine <2.0 mg/dL (<2.0); WBC,Urine <1 /hpf (0-5)
[2020-05-21] MEDS: CYCLOBENZAPRINE 10 MG TAB PO SCH (22:53)
[2020-05-21 22:56] LABS: Ketones,Urine 4+ (Negative)
[2020-05-21 23:00] LABS: Glucose,Whole Blood 430 mg/dL (75-99)
[2020-05-21 23:07] LABS: Phosphorus 4.2 mg/dL (2.5-4.5); Potassium 4.4 mmol/L (3.5-5.1)
[2020-05-21 23:22] LABS: Glucose,Whole Blood 426 mg/dL (75-99)
[2020-05-21] MEDS: ALBUTEROL HFA INHALER INHALATION SCH (23:37)
[2020-05-22 00:12] LABS: Glucose,Whole Blood 374 mg/dL (75-99)
[2020-05-22] MEDS: ALBUTEROL HFA INHALER INHALATION SCH ×7 (00:19→23:41)
[2020-05-22 01:16] LABS: Glucose,Whole Blood 313 mg/dL (75-99)
[2020-05-22 02:07] LABS: Glucose,Whole Blood 266 mg/dL (75-99)
[2020-05-22] MEDS: SODIUM CHLORIDE 0.9% 1,000 ML IV SCH ×4 (02:18→15:33)
[2020-05-22] MEDS: DEXTROSE 5%-0.45% NACL 1,000 ML with POTASSIUM CHLORIDE 20 MEQ IV SCH ×4 (02:58→12:10)
[2020-05-22] MEDS: INSULIN REGULAR 100 UNIT in SODIUM CHLORIDE 0.9% 100 ML IV SCH (02:59)
[2020-05-22 03:06] LABS: Glucose,Whole Blood 234 mg/dL (75-99)
[2020-05-22 04:25] LABS: Basophils # (A) 0.1 k/uL (0-0.2); Basophils % (A) 0 %; Eosinophils # (A) 0.1 k/uL (0-0.7); Eosinophils % (A) 0 %; HCT 40.6 % (39.0-53.0); Lymphocytes # (A) 1.5 k/uL (1.0-4.8); Lymphocytes % (A) 6 %; MCH 30.4 pg (25.0-35.0); MCHC 34.3 g/dL (31.0-37.0); Mean Platelet Volume 7.7; Monocytes # (A) 1.5 k/uL (0-1.0); Monocytes % (A) 6 %; Neutrophils # (A) 22.7 k/uL (1.3-7.7); Neutrophils % (A) 87 %; Platelet Count 199 k/uL (150-450); RBC 4.58 m/uL (4.30-5.90); RDW 12.5 % (11.5-15.5); WBC 25.9 k/uL (3.8-10.6)
[2020-05-22 04:31] LABS: ALT 22 U/L (4-49); AST 21 U/L (17-59); African American GFR (CKD) >90 (>60 ml/min/1.73 sqM); Albumin 3.6 g/dL (3.5-5.0); Alkaline Phosphatase 57 U/L (38-126); Anion Gap 10 mmol/L; Blood Urea Nitrogen 28 mg/dL (9-20); Calcium 7.8 mg/dL (8.4-10.2); Carbon Dioxide 16 mmol/L (22-30); Chloride 105 mmol/L (98-107); Glucose 233 mg/dL (74-99); Non-African American GFR(CKD) >90 (>60 ml/min/1.73 sqM); Potassium 4.1 mmol/L (3.5-5.1); Sodium 131 mmol/L (137-145); Total Bilirubin 0.6 mg/dL (0.2-1.3)
[2020-05-22 04:43] LABS: HGB 13.9 gm/dL (13.0-17.5); MCV 88.7 fL (80.0-100.0)
[2020-05-22 05:11] LABS: Glucose,Whole Blood 255 mg/dL (75-99)
[2020-05-22 06:10] LABS: Glucose,Whole Blood 251 mg/dL (75-99)
[2020-05-22 06:57] LABS: Glucose,Whole Blood 237 mg/dL (75-99)
[2020-05-22 07:57] LABS: African American GFR (CKD) >90 (>60 ml/min/1.73 sqM); Anion Gap 6 mmol/L; Blood Urea Nitrogen 22 mg/dL (9-20); Carbon Dioxide 19 mmol/L (22-30); Chloride 107 mmol/L (98-107); Glucose 219 mg/dL (74-99); Non-African American GFR(CKD) >90 (>60 ml/min/1.73 sqM); Phosphorus 1.1 mg/dL (2.5-4.5); Potassium 3.8 mmol/L (3.5-5.1); Sodium 132 mmol/L (137-145)
[2020-05-22 08:50] LABS: Glucose,Whole Blood 219 mg/dL (75-99)
[2020-05-22] MEDS: ASPIRIN 81 MG PO SCH (09:18)
[2020-05-22] MEDS: PANTOPRAZOLE 40 MG/10 ML VIAL IVP SCH (09:18)
[2020-05-22] MEDS: amLODIPine 2.5 MG TAB PO SCH (09:19)
[2020-05-22] MEDS: ATORVASTATIN 20 MG TAB PO SCH (09:19)
[2020-05-22] MEDS: lisinopriL 20 MG TAB PO SCH (09:19)
[2020-05-22] MEDS: LORATADINE 10 MG TAB PO SCH (09:19)
[2020-05-22] MEDS: CYCLOBENZAPRINE 10 MG TAB PO SCH ×3 (09:19→21:54)
[2020-05-22 10:06] LABS: Glucose,Whole Blood 159 mg/dL (75-99)
[2020-05-22] MEDS ORDERED: Phosphorus Replacement Protoco 1 EACH MISC MISCELLANE PRN (10:32)
--- NOTE | 2020-05-22 10:35 | P.HPIM ---
History of Present Illness This is a pleasant 55 years old male with past medical history of diabetes mellitus, GERD, hyperlipidemia, hypertension, chronic low back pain, diabetic neuropathy, left foot drop with a boot, Also with history of depression. Brittany rapp presents because of nonspecific symptoms of dizziness and vomiting of 1-2 days duration associated with some mild abdominal pain, patient could not walk and she felt generally weak. Also was complaining of from generalized chest pain for the last few days without specification, felt like something sitting on his chest, nonradiating, associated with some dyspnea but currently is completely resolved with no chest pain, no shortness of breath. All his symptoms are resolved after his been treated in the ICU for DKA. Patient also was taking prednisone taper for the last 6-7 days prescribed to him by Dr. Arriaza is a neurologist for his right shoulder pain. On admission patient glucose was elevated and found to be in diabetic ketoacidosis. He was admitted to the ICU and treated with insulin drip per protocol. This morning patient is awake and alert, slightly lethargic, however he denies chest pain or dyspnea, no abdominal pain, no diarrhea, no vomiting which is stopped, no dizziness, no fever, no other symptoms. He smokes about 2 packs per day, patient is counseled to quit but he declined to quit now, also declined nicotine patch. 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 Crowley, he was on insulin pump for 20 years and he was compliant with it however he ran out of insulin yesterday and he was so weak to replace it Vitas looks stable. Leukocytosis of 33 and 25.9. INR and d-dimer are normal, d-dimer is negative at 0.31. On admission he had low carbon dioxide less than 5, potassium 5.4 and glucose elevated 717, lactic acid was elevated 5.4. Currently BMP showing sodium 132, normal potassium 3.8, creatinine normal 0.7, glucose is around low 200s. Low phosphorus 1.1. Urinalysis showing glucosuria but no signs of infection. Acetone is positive. Coronavirus not detected. EKG showing sinus tachycardia at [address]-T changes. Chest x- ray showing no acute process. Pulmonary team were consulted from the emergency room. At home he was on insulin pump Review of Systems CONSTITUTIONAL: No fever, no malaise, no fatigue. HEENT: No recent visual problems or hearing problems. Denied any sore throat. CARDIOVASCULAR: No orthopnea, PND, no palpitations, no syncope. PULMONARY: No shortness of breath, no cough, no hemoptysis. GASTROINTESTINAL: No diarrhea, no nausea, no vomiting, no abdominal pain. Normoactive bowel sounds. NEUROLOGICAL: No headaches, no weakness, no numbness. HEMATOLOGICAL: Denies any bleeding or petechiae. GENITOURINARY: Denies any burning micturition, frequency, or urgency. MUSCULOSKELETAL/RHEUMATOLOGICAL: Denies any joint pain, swelling, or any muscle pain. ENDOCRINE: Denies any polyuria or polydipsia. Past Medical History Past Medical History: Diabetes Mellitus, GERD/Reflux, Hyperlipidemia, Hypertension Additional Past Medical History / Comment(s): chronic back pain, has lost weight over the past year, abdominal pain, neuropathy due to diabetes,DROP FOOT (LT) wears a boot. retinopathy, mitral valve prolapse.mennigitis as child, recent fall-fx rib on lt side and has a "sore" on lower lt leg.has has steroid inj hips/wrist. carotid artery "leak" History of Any Multi-Drug Resistant Organisms: None Reported Past Surgical History: Tonsillectomy Additional Past Surgical History / Comment(s): polyp removed from stomach as a 1 y.o., lesions removed from throat positive for cancer- sx got it all -no chemo or radiation, egd,colonoscopy/polypectomy(benign)."can't rememebr if he had his appendix removed or not. Past Anesthesia/Blood Transfusion Reactions: No Reported Reaction Past Psychological History: Depression Smoking Status: Current every day smoker Past Alcohol Use History: Occasional Past Drug Use History: Marijuana - Past Family History Mother Family Medical History: Cancer Additional Family Medical History / Comment(s): lung Father Family Medical History: Diabetes Mellitus Additional Family Medical History / Comment(s): draw frame operator replacment(pig valve) Medications and Allergies Home Medications Medication Instructions Recorded Confirmed Type Ibuprofen [Motrin] 800 mg PO TID PRN 12/30/15 05/21/20 History lisinopriL 40 mg PO DAILY 12/28/16 05/21/20 History Atorvastatin [Lipitor] 20 mg PO DAILY 01/19/17 05/21/20 History Cyclobenzaprine [Flexeril] 5 mg PO TID 01/19/17 05/21/20 History DULoxetine HCL [Cymbalta] 60 mg PO HS 01/19/17 05/21/20 History INSULIN LISPRO (For Pump) [humaLOG 0.01 units SQ-PUMP CONTINUOUS 01/19/17 05/21/20 History (For Pump)] DULoxetine HCL [Cymbalta] 30 mg PO HS 11/28/19 05/21/20 History Loratadine 10 mg PO DAILY 11/28/19 05/21/20 History Omeprazole 20 mg PO BID 11/28/19 05/21/20 History amLODIPine [Norvasc] 2.5 mg PO DAILY 11/28/19 05/21/20 History Aspirin EC [Ecotrin Low Dose] 81 mg PO DAILY #30 tablet. 12/01/19 05/21/20 Rx Allergies Allergy/AdvReac Type Severity Reaction Status Date / Time pregabalin [From Lyrica] Allergy Unknown Verified 05/21/20 19:45 Physical Exam Vitals: Vital Signs Temp Pulse Resp BP Pulse Ox 05/22/20 09:00 96 13 126/73 97 05/22/20 08:00 98 F 98 18 164/84 99 05/22/20 07:00 102 H 16 152/83 96 05/22/20 06:00 103 H 15 152/83 98 05/22/20 05:00 104 H 15 152/81 98 05/22/20 04:00 98.4 F 109 H 18 156/82 96 05/22/20 03:00 109 H 16 151/72 96 05/22/20 02:00 110 H 29 H 161/97 99 05/22/20 01:00 105 H 15 161/81 99 05/22/20 00:12 104 H 16 98 05/22/20 00:00 98.1 F 103 H 12 154/73 99 05/21/20 23:22 106 H 05/21/20 23:06 98.0 F 103 H 22 155/78 97 05/21/20 22:47 101 H 20 166/81 100 05/21/20 21:45 115 H 22 145/82 98 05/21/20 21:40 26 H 05/21/20 20:00 97.8 F 111 H 24 141/75 100 05/21/20 19:30 102 H 22 151/71 100 05/21/20 18:45 105 H 20 164/73 99 05/21/20 17:29 94.5 F L 110 H 22 132/78 100 Intake and Output 05/21/20 05/22/20 05/22/20 22:59 06:59 14:59 Intake Total 18.280 1706.533 450 Output Total 250 600 300 Balance -556.558 5940.533 150 Intake: IV 300 Dextrose 5%-0.45% NaCl 1, 300 000 ml @ 150 mls/hr IV . Q6H44M TASHI with Potassium Chloride 20 meq Rx#: [id number] Intake, IV Titration 18.280 1466.533 150 Amount Dextrose 5%-0.45% NaCl 1, 600 150 000 ml @ 150 mls/hr IV . Q6H44M TASHI with Potassium Chloride 20 meq Rx#: [id number] Insulin Regular 100 unit 18.280 66.533 In Sodium Chloride 0.9% 100 ml @ 0.1 UNITS/KG/HR 8.017 mls/hr IV .[id number] TASHI Rx#:[id number] Sodium Chloride 0.9% 1, 800 000 ml @ 200 mls/hr IV . Q5H TASHI Rx#:[id number] Oral 240 Output: Urine 250 600 300 Other: Voiding Method Urinal Urinal # Voids 1 Weight 79.379 kg 73.8 kg GENERAL: The patient is alert and oriented x3, not in any acute distress. Well developed, well nourished. HEENT: Pupils are round and equally reacting to light. EOMI. No scleral icterus. No conjunctival pallor. Normocephalic, atraumatic. No pharyngeal erythema. No thyromegaly. CARDIOVASCULAR: S1 and S2 present. No murmurs, rubs, or gallops. PULMONARY: Chest is clear to auscultation, no wheezing or crackles. ABDOMEN: Soft, nontender, nondistended, normoactive bowel sounds. No palpable organomegaly. MUSCULOSKELETAL: No joint swelling or deformity. EXTREMITIES: No cyanosis, clubbing, or pedal edema. NEUROLOGICAL: Gross neurological examination did not reveal any focal deficits. SKIN: No rashes. No petechiae Results CBC & Chem 7: 05/22/20 03:32 05/22/20 07:27 Labs: Abnormal Lab Results - Last 24 Hours (Table) 05/21/20 05/21/20 05/21/20 Range/Units 17:39 18:06 18:06 WBC 33.6 H (3.8-10.6) k/uL Hgb 17.7 H (13.0-17.5) gm/dL Hct 53.8 H (39.0-53.0) % Neutrophils # (1.3-7.7) k/uL Neutrophils # (Manual) 29.20 H (1.3-7.7) k/uL Monocytes # (0-1.0) k/uL Monocytes # (Manual) 2.02 H (0-1.0) k/uL Metamyelocytes # (Man) 0.34 H (0) k/uL Myelocytes # (Manual) 0.34 H (0) k/uL Sodium 133 L (137-145) mmol/L Potassium 5.4 H (3.5-5.1) mmol/L Chloride 90 L (98-107) mmol/L Carbon Dioxide <5 L* (22-30) mmol/L BUN 33 H (9-20) mg/dL Creatinine 1.92 H (0.66-1.25) mg/dL Glucose 717 H* (74-99) mg/dL POC Glucose (mg/dL) >600 H (75-99) mg/dL Plasma Lactic Acid Matt (0.7-2.0) mmol/L Calcium (8.4-10.2) mg/dL Phosphorus (2.5-4.5) mg/dL Total Protein (6.3-8.2) g/dL Albumin 5.2 H (3.5-5.0) g/dL Urine Protein (Negative) Urine Glucose (UA) (Negative) Urine Ketones (Negative) Urine Blood (Negative) Hyaline Casts (0-2) /lpf Urine Mucus (None) /hpf 05/21/20 05/21/20 05/21/20 Range/Units 18:06 18:44 18:55 WBC (3.8-10.6) k/uL Hgb (13.0-17.5) gm/dL Hct (39.0-53.0) % Neutrophils # (1.3-7.7) k/uL Neutrophils # (Manual) (1.3-7.7) k/uL Monocytes # (0-1.0) k/uL Monocytes # (Manual) (0-1.0) k/uL Metamyelocytes # (Man) (0) k/uL Myelocytes # (Manual) (0) k/uL Sodium (137-145) mmol/L Potassium (3.5-5.1) mmol/L Chloride (98-107) mmol/L Carbon Dioxide (22-30) mmol/L BUN (9-20) mg/dL Creatinine (0.66-1.25) mg/dL Glucose (74-99) mg/dL POC Glucose (mg/dL) >600 H (75-99) mg/dL Plasma Lactic Acid Matt 5.4 H* (0.7-2.0) mmol/L Calcium (8.4-10.2) mg/dL Phosphorus (2.5-4.5) mg/dL Total Protein (6.3-8.2) g/dL Albumin (3.5-5.0) g/dL Urine Protein 1+ H (Negative) Urine Glucose (UA) 4+ H (Negative) Urine Ketones 4+ H (Negative) Urine Blood Small H (Negative) Hyaline Casts 76 H (0-2) /lpf Urine Mucus Rare H (None) /hpf 05/21/20 05/21/20 05/21/20 Range/Units 19:47 20:53 21:26 WBC (3.8-10.6) k/uL Hgb (13.0-17.5) gm/dL Hct (39.0-53.0) % Neutrophils # (1.3-7.7) k/uL Neutrophils # (Manual) (1.3-7.7) k/uL Monocytes # (0-1.0) k/uL Monocytes # (Manual) (0-1.0) k/uL Metamyelocytes # (Man) (0) k/uL Myelocytes # (Manual) (0) k/uL Sodium (137-145) mmol/L Potassium (3.5-5.1) mmol/L Chloride (98-107) mmol/L Carbon Dioxide (22-30) mmol/L BUN (9-20) mg/dL Creatinine (0.66-1.25) mg/dL Glucose (74-99) mg/dL POC Glucose (mg/dL) >600 H 485 H (75-99) mg/dL Plasma Lactic Acid Matt 2.5 H* (0.7-2.0) mmol/L Calcium (8.4-10.2) mg/dL Phosphorus (2.5-4.5) mg/dL Total Protein (6.3-8.2) g/dL Albumin (3.5-5.0) g/dL Urine Protein (Negative) Urine Glucose (UA) (Negative) Urine Ketones (Negative) Urine Blood (Negative) Hyaline Casts (0-2) /lpf Urine Mucus (None) /hpf 05/21/20 05/21/20 05/21/20 Range/Units 21:49 22:47 22:49 WBC (3.8-10.6) k/uL Hgb (13.0-17.5) gm/dL Hct (39.0-53.0) % Neutrophils # (1.3-7.7) k/uL Neutrophils # (Manual) (1.3-7.7) k/uL Monocytes # (0-1.0) k/uL Monocytes # (Manual) (0-1.0) k/uL Metamyelocytes # (Man) (0) k/uL Myelocytes # (Manual) (0) k/uL Sodium 131 L (137-145) mmol/L Potassium (3.5-5.1) mmol/L Chloride (98-107) mmol/L Carbon Dioxide 7 L* (22-30) mmol/L BUN 35 H (9-20) mg/dL Creatinine 1.33 H (0.66-1.25) mg/dL Glucose 454 H (74-99) mg/dL POC Glucose (mg/dL) 486 H 430 H (75-99) mg/dL Plasma Lactic Acid Matt (0.7-2.0) mmol/L Calcium (8.4-10.2) mg/dL Phosphorus (2.5-4.5) mg/dL Total Protein (6.3-8.2) g/dL Albumin (3.5-5.0) g/dL Urine Protein (Negative) Urine Glucose (UA) (Negative) Urine Ketones (Negative) Urine Blood (Negative) Hyaline Casts (0-2) /lpf Urine Mucus (None) /hpf 05/21/20 05/22/20 05/22/20 Range/Units 23:21 00:05 01:14 WBC (3.8-10.6) k/uL Hgb (13.0-17.5) gm/dL Hct (39.0-53.0) % Neutrophils # (1.3-7.7) k/uL Neutrophils # (Manual) (1.3-7.7) k/uL Monocytes # (0-1.0) k/uL Monocytes # (Manual) (0-1.0) k/uL Metamyelocytes # (Man) (0) k/uL Myelocytes # (Manual) (0) k/uL Sodium (137-145) mmol/L Potassium (3.5-5.1) mmol/L Chloride (98-107) mmol/L Carbon Dioxide (22-30) mmol/L BUN (9-20) mg/dL Creatinine (0.66-1.25) mg/dL Glucose (74-99) mg/dL POC Glucose (mg/dL) 426 H 374 H 313 H (75-99) mg/dL Plasma Lactic Acid Matt (0.7-2.0) mmol/L Calcium (8.4-10.2) mg/dL Phosphorus (2.5-4.5) mg/dL Total Protein (6.3-8.2) g/dL Albumin (3.5-5.0) g/dL Urine Protein (Negative) Urine Glucose (UA) (Negative) Urine Ketones (Negative) Urine Blood (Negative) Hyaline Casts (0-2) /lpf Urine Mucus (None) /hpf 05/22/20 05/22/20 05/22/20 Range/Units 02:06 03:04 03:32 WBC (3.8-10.6) k/uL Hgb (13.0-17.5) gm/dL Hct (39.0-53.0) % Neutrophils # (1.3-7.7) k/uL Neutrophils # (Manual) (1.3-7.7) k/uL Monocytes # (0-1.0) k/uL Monocytes # (Manual) (0-1.0) k/uL Metamyelocytes # (Man) (0) k/uL Myelocytes # (Manual) (0) k/uL Sodium (137-145) mmol/L Potassium (3.5-5.1) mmol/L Chloride (98-107) mmol/L Carbon Dioxide (22-30) mmol/L BUN (9-20) mg/dL Creatinine (0.66-1.25) mg/dL Glucose (74-99) mg/dL POC Glucose (mg/dL) 266 H 234 H (75-99) mg/dL Plasma Lactic Acid Matt (0.7-2.0) mmol/L Calcium (8.4-10.2) mg/dL Phosphorus 1.6 L (2.5-4.5) mg/dL Total Protein (6.3-8.2) g/dL Albumin (3.5-5.0) g/dL Urine Protein (Negative) Urine Glucose (UA) (Negative) Urine Ketones (Negative) Urine Blood (Negative) Hyaline Casts (0-2) /lpf Urine Mucus (None) /hpf 05/22/20 05/22/20 05/22/20 Range/Units 03:32 03:32 05:09 WBC 25.9 H (3.8-10.6) k/uL Hgb (13.0-17.5) gm/dL Hct (39.0-53.0) % Neutrophils # 22.7 H (1.3-7.7) k/uL Neutrophils # (Manual) (1.3-7.7) k/uL Monocytes # 1.5 H (0-1.0) k/uL Monocytes # (Manual) (0-1.0) k/uL Metamyelocytes # (Man) (0) k/uL Myelocytes # (Manual) (0) k/uL Sodium 131 L (137-145) mmol/L Potassium (3.5-5.1) mmol/L Chloride (98-107) mmol/L Carbon Dioxide 16 L (22-30) mmol/L BUN 28 H (9-20) mg/dL Creatinine (0.66-1.25) mg/dL Glucose 233 H (74-99) mg/dL POC Glucose (mg/dL) 255 H (75-99) mg/dL Plasma Lactic Acid Matt (0.7-2.0) mmol/L Calcium 7.8 L (8.4-10.2) mg/dL Phosphorus (2.5-4.5) mg/dL Total Protein 6.0 L (6.3-8.2) g/dL Albumin (3.5-5.0) g/dL Urine Protein (Negative) Urine Glucose (UA) (Negative) Urine Ketones (Negative) Urine Blood (Negative) Hyaline Casts (0-2) /lpf Urine Mucus (None) /hpf 05/22/20 05/22/20 05/22/20 Range/Units 06:09 06:56 07:27 WBC (3.8-10.6) k/uL Hgb (13.0-17.5) gm/dL Hct (39.0-53.0) % Neutrophils # (1.3-7.7) k/uL Neutrophils # (Manual) (1.3-7.7) k/uL Monocytes # (0-1.0) k/uL Monocytes # (Manual) (0-1.0) k/uL Metamyelocytes # (Man) (0) k/uL Myelocytes # (Manual) (0) k/uL Sodium 132 L (137-145) mmol/L Potassium (3.5-5.1) mmol/L Chloride (98-107) mmol/L Carbon Dioxide 19 L (22-30) mmol/L BUN 22 H (9-20) mg/dL Creatinine (0.66-1.25) mg/dL Glucose 219 H (74-99) mg/dL POC Glucose (mg/dL) 251 H 237 H (75-99) mg/dL Plasma Lactic Acid Matt (0.7-2.0) mmol/L Calcium (8.4-10.2) mg/dL Phosphorus 1.1 L (2.5-4.5) mg/dL Total Protein (6.3-8.2) g/dL Albumin (3.5-5.0) g/dL Urine Protein (Negative) Urine Glucose (UA) (Negative) Urine Ketones (Negative) Urine Blood (Negative) Hyaline Casts (0-2) /lpf Urine Mucus (None) /hpf 05/22/20 Range/Units 08:49 WBC (3.8-10.6) k/uL Hgb (13.0-17.5) gm/dL Hct (39.0-53.0) % Neutrophils # (1.3-7.7) k/uL Neutrophils # (Manual) (1.3-7.7) k/uL Monocytes # (0-1.0) k/uL Monocytes # (Manual) (0-1.0) k/uL Metamyelocytes # (Man) (0) k/uL Myelocytes # (Manual) (0) k/uL Sodium (137-145) mmol/L Potassium (3.5-5.1) mmol/L Chloride (98-107) mmol/L Carbon Dioxide (22-30) mmol/L BUN (9-20) mg/dL Creatinine (0.66-1.25) mg/dL Glucose (74-99) mg/dL POC Glucose (mg/dL) 219 H (75-99) mg/dL Plasma Lactic Acid Matt (0.7-2.0) mmol/L Calcium (8.4-10.2) mg/dL Phosphorus (2.5-4.5) mg/dL Total Protein (6.3-8.2) g/dL Albumin (3.5-5.0) g/dL Urine Protein (Negative) Urine Glucose (UA) (Negative) Urine Ketones (Negative) Urine Blood (Negative) Hyaline Casts (0-2) /lpf Urine Mucus (None) /hpf Thrombosis Risk Factor Assmnt - Choose All That Apply Any of the Below Risk Factors Present?: No Assessment and Plan Assessment: Diabetic ketoacidosis, Mostly secondary to noncompliance to medications office insulin pump, was on steroids Leukocytosis, mostly secondary to DKA and steroids Diabetes mellitus with hyperglycemia Elevated lactic acid, came back to normal Hypertension Hyperlipidemia Chronic low back pain Diabetic neuropathy History of Left foot drop using a boot, resolved now History of depression, not inactivation Plan: This is a pleasant 55 years old male presents with DKA, continue with insulin drip as per protocol, place electrolytes and switched to subcutaneous insulin. We will start the patient and Levemir 15 units daily and 5 units with meals . We will check a pro-calcitonin and another set of troponin. Labs and medication were reviewed.. Continue same treatment. Continue with symptomatic treatment. Resume home medication. Monitor lytes and vitals. DVT and GI prophylaxis. Further recommendations depends on the clinical course of the patient DVT prophylaxis: Subcutaneous heparin GI Prophylaxis: Ppi
[2020-05-22 10:43] VITALS: BMI 24.7
--- NOTE | 2020-05-22 10:43 | P.CNPUL ---
History of Present Illness Consult date: 05/22/20 Requesting physician: Allan Zuniga Reason for consult: other (Critical care management) Chief complaint: Shortness of breath, chest pain, nausea, vomiting, diarrhea History of present illness: This is a pleasant 55-year-old gentleman who follows with Dr. Pierce as his primary care provider. He has a history of diabetes mellitus, gastroesophageal reflux disease, hyperlipidemia, hypertension, chronic back pain, diabetic neuropathy throat cancer status post surgery, depression, chronic and ongoing tobacco dependence, occasional marijuana use. He presented here to the emergency room yesterday with complaints of chest tightness, shortness of breath, weakness with nausea, vomiting, diarrhea. He had recently been initiated on prednisone for shoulder pain. He also states his insulin pump had been beeping often. He had not taken any insulin for 2 days prior to his arrival. Initial labs revealed white count 33.6. Hemoglobin 17.7. Sodium 133. Potassium 5.4. Bicarb less than 5. Anion gap 22. Creatinine 1.9. Lactic acid 5.4. Acetone positive. Moreno virus not detected. He was admitted to the intensive care unit with diabetic ketoacidosis. He is seen today in consultation in the ICU. He is currently awake and alert in no acute distress. White count 25.9. Hemoglobin 13.1. Sodium 132. Potassium 3.8. Creatinine 0.7. Bicarb 19. He is currently on D5.45 with 20 of KCl at 150 MLS per hour. Insulin drip at 10 units per hour. He is on 2 L/m per nasal cannula. Chest x- ray reveals no acute process. Review of Systems REVIEW OF SYSTEMS: CONSTITUTIONAL: Nausea, vomiting and weakness. Denies any recent significant weight loss or weight gain. EYES: Denies change in vision. EARS, NOSE, MOUTH, THROAT: Denies headaches, denies sore throat. CARDIOVASCULAR: Denies chest pain, palpitations or syncopal episodes. RESPIRATORY: Denies shortness of breath, cough, congestion or hemoptysis. GASTROINTESTINAL: Denies change in appetite, denies abdominal pain GENITOURINARY: Denies hematuria, denies infections. MUSKULOSKELETAL: Denies pain, denies swelling. INTEGUMENTARY: Denies rash, denies eczema. NEUROLOGICAL: Denies recent memory loss, no recent seizure activity. PSYCHIATRIC: Denies anxiety, denies depression. HEMATOLOGIC/LYMPHATIC: Denies anemia, denies enlarged lymph nodes. Past Medical History Past Medical History: Diabetes Mellitus, GERD/Reflux, Hyperlipidemia, Hypertension Additional Past Medical History / Comment(s): chronic back pain, has lost weight over the past year, abdominal pain, neuropathy due to diabetes,DROP FOOT (LT) wears a boot. retinopathy, mitral valve prolapse.mennigitis as child, recent fall-fx rib on lt side and has a "sore" on lower lt leg.has has steroid inj hips/wrist. carotid artery "leak" History of Any Multi-Drug Resistant Organisms: None Reported Past Surgical History: Tonsillectomy Additional Past Surgical History / Comment(s): polyp removed from stomach as a 1 y.o., lesions removed from throat positive for cancer- sx got it all -no chemo or radiation, egd,colonoscopy/polypectomy(benign)."can't rememebr if he had his appendix removed or not. Past Anesthesia/Blood Transfusion Reactions: No Reported Reaction Past Psychological History: Depression Smoking Status: Current every day smoker Past Alcohol Use History: Occasional Past Drug Use History: Marijuana - Past Family History Mother Family Medical History: Cancer Additional Family Medical History / Comment(s): lung Father Family Medical History: Diabetes Mellitus Additional Family Medical History / Comment(s): planer off bearer replacment(pig valve) Medications and Allergies Home Medications Medication Instructions Recorded Confirmed Type Ibuprofen [Motrin] 800 mg PO TID PRN 12/30/15 05/21/20 History lisinopriL 40 mg PO DAILY 12/28/16 05/21/20 History Atorvastatin [Lipitor] 20 mg PO DAILY 01/19/17 05/21/20 History Cyclobenzaprine [Flexeril] 5 mg PO TID 01/19/17 05/21/20 History DULoxetine HCL [Cymbalta] 60 mg PO HS 01/19/17 05/21/20 History INSULIN LISPRO (For Pump) [humaLOG 0.01 units SQ-PUMP CONTINUOUS 01/19/17 05/21/20 History (For Pump)] DULoxetine HCL [Cymbalta] 30 mg PO HS 11/28/19 05/21/20 History Loratadine 10 mg PO DAILY 11/28/19 05/21/20 History Omeprazole 20 mg PO BID 11/28/19 05/21/20 History amLODIPine [Norvasc] 2.5 mg PO DAILY 11/28/19 05/21/20 History Aspirin EC [Ecotrin Low Dose] 81 mg PO DAILY #30 tablet. 12/01/19 05/21/20 Rx Allergies Allergy/AdvReac Type Severity Reaction Status Date / Time pregabalin [From Lyrica] Allergy Unknown Verified 05/21/20 19:45 Physical Exam Vitals: Vital Signs Temp Pulse Resp BP Pulse Ox 05/22/20 09:00 96 13 126/73 97 05/22/20 08:00 98 F 98 18 164/84 99 05/22/20 07:00 102 H 16 152/83 96 05/22/20 06:00 103 H 15 152/83 98 05/22/20 05:00 104 H 15 152/81 98 05/22/20 04:00 98.4 F 109 H 18 156/82 96 05/22/20 03:00 109 H 16 151/72 96 05/22/20 02:00 110 H 29 H 161/97 99 05/22/20 01:00 105 H 15 161/81 99 05/22/20 00:12 104 H 16 98 05/22/20 00:00 98.1 F 103 H 12 154/73 99 05/21/20 23:22 106 H 05/21/20 23:06 98.0 F 103 H 22 155/78 97 05/21/20 22:47 101 H 20 166/81 100 05/21/20 21:45 115 H 22 145/82 98 05/21/20 21:40 26 H 05/21/20 20:00 97.8 F 111 H 24 141/75 100 05/21/20 19:30 102 H 22 151/71 100 05/21/20 18:45 105 H 20 164/73 99 05/21/20 17:29 94.5 F L 110 H 22 132/78 100 Intake and Output 05/21/20 05/22/20 05/22/20 22:59 06:59 14:59 Intake Total 18.280 1706.533 600 Output Total 250 600 300 Balance -598.932 5114.533 300 Intake: IV 450 Dextrose 5%-0.45% NaCl 1, 450 000 ml @ 150 mls/hr IV . Q6H44M TASHI with Potassium Chloride 20 meq Rx#: [id number] Intake, IV Titration 18.280 1466.533 150 Amount Dextrose 5%-0.45% NaCl 1, 600 150 000 ml @ 150 mls/hr IV . Q6H44M TASHI with Potassium Chloride 20 meq Rx#: [id number] Insulin Regular 100 unit 18.280 66.533 In Sodium Chloride 0.9% 100 ml @ 0.1 UNITS/KG/HR 8.017 mls/hr IV .[id number] TASHI Rx#:[id number] Sodium Chloride 0.9% 1, 800 000 ml @ 200 mls/hr IV . Q5H TASHI Rx#:[id number] Oral 240 Output: Urine 250 600 300 Other: Voiding Method Urinal Urinal # Voids 1 Weight 79.379 kg 73.8 kg GENERAL EXAM: Alert, pleasant 55-year-old gentleman on 2 L/m per nasal cannula, comfortable in no apparent distress. HEAD: Normocephalic. EYES: Normal reaction of pupils, equal size. NOSE: Clear with pink turbinates. THROAT: No erythema or exudates. NECK: No masses, no JVD. CHEST: No chest wall deformity. LUNGS: Equal air entry with no crackles, wheeze, rhonchi or dullness. CVS: S1 and S2 normal with no audible murmur, regular rhythm. ABDOMEN: No hepatosplenomegaly, normal bowel sounds, no guarding or rigidity. SPINE: No scoliosis or deformity SKIN: No rashes CENTRAL NERVOUS SYSTEM: No focal deficits, tone is normal in all 4 extremities. EXTREMITIES: There is no peripheral edema. No clubbing, no cyanosis. Peripheral pulses are intact. Results - Laboratory Findings CBC and BMP: 05/22/20 03:32 05/22/20 07:27 PT/INR, D-dimer PT 10.7 sec (9.0-12.0) 05/21/20 18:06 INR 1.0 (<1.2) 05/21/20 18:06 D-Dimer 0.31 mg/L FEU (<0.60) 05/21/20 18:06 Abnormal lab findings: Abnormal Labs 05/21/20 05/21/20 05/21/20 17:39 18:06 18:06 WBC 33.6 H Hgb 17.7 H Hct 53.8 H Neutrophils # Neutrophils # (Manual) 29.20 H Monocytes # Monocytes # (Manual) 2.02 H Metamyelocytes # (Man) 0.34 H Myelocytes # (Manual) 0.34 H Sodium 133 L Potassium 5.4 H Chloride 90 L Carbon Dioxide <5 L* BUN 33 H Creatinine 1.92 H Glucose 717 H* POC Glucose (mg/dL) >600 H Plasma Lactic Acid Matt Calcium Phosphorus Total Protein Albumin 5.2 H Urine Protein Urine Glucose (UA) Urine Ketones Urine Blood Hyaline Casts Urine Mucus 05/21/20 05/21/20 05/21/20 18:06 18:44 18:55 WBC Hgb Hct Neutrophils # Neutrophils # (Manual) Monocytes # Monocytes # (Manual) Metamyelocytes # (Man) Myelocytes # (Manual) Sodium Potassium Chloride Carbon Dioxide BUN Creatinine Glucose POC Glucose (mg/dL) >600 H Plasma Lactic Acid Matt 5.4 H* Calcium Phosphorus Total Protein Albumin Urine Protein 1+ H Urine Glucose (UA) 4+ H Urine Ketones 4+ H Urine Blood Small H Hyaline Casts 76 H Urine Mucus Rare H 05/21/20 05/21/20 05/21/20 19:47 20:53 21:26 WBC Hgb Hct Neutrophils # Neutrophils # (Manual) Monocytes # Monocytes # (Manual) Metamyelocytes # (Man) Myelocytes # (Manual) Sodium Potassium Chloride Carbon Dioxide BUN Creatinine Glucose POC Glucose (mg/dL) >600 H 485 H Plasma Lactic Acid Matt 2.5 H* Calcium Phosphorus Total Protein Albumin Urine Protein Urine Glucose (UA) Urine Ketones Urine Blood Hyaline Casts Urine Mucus 05/21/20 05/21/20 05/21/20 21:49 22:47 22:49 WBC Hgb Hct Neutrophils # Neutrophils # (Manual) Monocytes # Monocytes # (Manual) Metamyelocytes # (Man) Myelocytes # (Manual) Sodium 131 L Potassium Chloride Carbon Dioxide 7 L* BUN 35 H Creatinine 1.33 H Glucose 454 H POC Glucose (mg/dL) 486 H 430 H Plasma Lactic Acid Matt Calcium Phosphorus Total Protein Albumin Urine Protein Urine Glucose (UA) Urine Ketones Urine Blood Hyaline Casts Urine Mucus 05/21/20 05/22/20 05/22/20 23:21 00:05 01:14 WBC Hgb Hct Neutrophils # Neutrophils # (Manual) Monocytes # Monocytes # (Manual) Metamyelocytes # (Man) Myelocytes # (Manual) Sodium Potassium Chloride Carbon Dioxide BUN Creatinine Glucose POC Glucose (mg/dL) 426 H 374 H 313 H Plasma Lactic Acid Matt Calcium Phosphorus Total Protein Albumin Urine Protein Urine Glucose (UA) Urine Ketones Urine Blood Hyaline Casts Urine Mucus 05/22/20 05/22/20 05/22/20 02:06 03:04 03:32 WBC Hgb Hct Neutrophils # Neutrophils # (Manual) Monocytes # Monocytes # (Manual) Metamyelocytes # (Man) Myelocytes # (Manual) Sodium Potassium Chloride Carbon Dioxide BUN Creatinine Glucose POC Glucose (mg/dL) 266 H 234 H Plasma Lactic Acid Matt Calcium Phosphorus 1.6 L Total Protein Albumin Urine Protein Urine Glucose (UA) Urine Ketones Urine Blood Hyaline Casts Urine Mucus 05/22/20 05/22/20 05/22/20 03:32 03:32 05:09 WBC 25.9 H Hgb Hct Neutrophils # 22.7 H Neutrophils # (Manual) Monocytes # 1.5 H Monocytes # (Manual) Metamyelocytes # (Man) Myelocytes # (Manual) Sodium 131 L Potassium Chloride Carbon Dioxide 16 L BUN 28 H Creatinine Glucose 233 H POC Glucose (mg/dL) 255 H Plasma Lactic Acid Matt Calcium 7.8 L Phosphorus Total Protein 6.0 L Albumin Urine Protein Urine Glucose (UA) Urine Ketones Urine Blood Hyaline Casts Urine Mucus 05/22/20 05/22/20 05/22/20 06:09 06:56 07:27 WBC Hgb Hct Neutrophils # Neutrophils # (Manual) Monocytes # Monocytes # (Manual) Metamyelocytes # (Man) Myelocytes # (Manual) Sodium 132 L Potassium Chloride Carbon Dioxide 19 L BUN 22 H Creatinine Glucose 219 H POC Glucose (mg/dL) 251 H 237 H Plasma Lactic Acid Matt Calcium Phosphorus 1.1 L Total Protein Albumin Urine Protein Urine Glucose (UA) Urine Ketones Urine Blood Hyaline Casts Urine Mucus 05/22/20 05/22/20 08:49 10:05 WBC Hgb Hct Neutrophils # Neutrophils # (Manual) Monocytes # Monocytes # (Manual) Metamyelocytes # (Man) Myelocytes # (Manual) Sodium Potassium Chloride Carbon Dioxide BUN Creatinine Glucose POC Glucose (mg/dL) 219 H 159 H Plasma Lactic Acid Matt Calcium Phosphorus Total Protein Albumin Urine Protein Urine Glucose (UA) Urine Ketones Urine Blood Hyaline Casts Urine Mucus - Diagnostic Findings Chest x-ray: image reviewed Assessment and Plan Assessment: 1 Acute diabetic ketoacidosis 2 Acute anion gap metabolic acidosis secondary to above 3 Lactic acidosis secondary to above 4 Acute renal failure secondary to above 5 Diabetes mellitus 6 Hypertension 7 Hyperlipidemia 8 Gastroesophageal reflux disease Plan: The patient was seen and evaluated by Dr. Guajardo Chest x-ray and labs reviewed Continue DKA protocol Will be transferred out of the ICU later today We'll continue to follow make further recommendations based on his clinical status I, the cosigning physician, performed a history & physical examination of the patient. Lungs sounds are clear. Maintaining good O2 saturations in the 90s on room air. I discussed the assessment and plan of care with my nurse practitioner, Nani Hernandez. I attest to the above consultation as dictated by her. Time with Patient: Greater than 30
[2020-05-22 11:04] LABS: Glucose,Whole Blood 152 mg/dL (75-99)
[2020-05-22] MEDS ORDERED: INSULIN DETEMIR (LEVEMIR) 100 UNIT/ML SYR SQ ONE (11:15)
[2020-05-22] MEDS: INSULIN ASPART (NovoLOG) 100 UNIT/ML VIAL SQ SCH ×3 (12:24→21:53)
[2020-05-22] MEDS ORDERED: INSULIN ASPART (NovoLOG) 100 UNIT/ML VIAL SQ SCH (12:30)
[2020-05-22] MEDS: SODIUM PHOSPHATE 10 MMOL in SODIUM CHLORIDE 0.9% 250 ML IVPB SCH ×3 (15:33→21:53)
[2020-05-22 17:07] LABS: Glucose,Whole Blood 87 mg/dL (75-99)
--- NOTE | 2020-05-22 17:17 | ECHOF ---
Referral Reason:Rule out heart disease MEASUREMENTS -------- HEIGHT: 172.7 cm WEIGHT: 73.5 kg BP: IVSd: 1.5 cm (0.6 - 1.1) LVIDd: 3.3 cm (3.9 - 5.3) LVPWd: 1.4 cm (0.6 - 1.1) IVSs: 2.0 cm LVIDs: 1.8 cm LVPWs: 1.5 cm LAESV Index (A-L): 16.58 ml/m Ao Diam: 2.9 cm (2.0 - 3.7) AV Cusp: 1.4 cm (1.5 - 2.6) LA Diam: 2.6 cm (2.7 - 3.8) MV EXCURSION: 13.970 mm (> 18.000) MV EF SLOPE: 54 mm/s (70 - 150) EPSS: 0.4 cm MV E Theo: 0.92 m/s MV DecT: 187 ms MV A Theo: 1.01 m/s MV E/A Ratio: 0.90 RAP: 5.00 mmHg RVSP: 15.94 mmHg FINDINGS -------- This was a technically good study. The left ventricular size is normal. There is moderate concentric left ventricular hypertrophy. O verall left ventricular systolic function is normal with, an EF between 60 - 65 %. Normal LAP Grade 1 Diastolic Dysfunction. The right ventricle is normal in size. The left atrial size is normal. Normal LA size by volume 22+/-6 ml/m2. The right atrial size is normal. The aortic valve is trileaflet and appears structurally normal. The mitral valve is normal. Mild mitral regurgitation is present. The tricuspid valve appears structurally normal. Mild tricuspid regurgitation present. Right vent ricular systolic pressure is normal at < 35 mmHg. There is no pulmonic regurgitation present. The aortic root size is normal. Normal inferior vena cava with normal inspiratory collapse consistent with estimated right atrial pre ssure of 5 mmHg. There is no pericardial effusion. CONCLUSIONS -------- 1. The left ventricular size is normal. 2. There is moderate concentric left ventricular hypertrophy. 3. Overall left ventricular systolic function is normal with, an EF between 60 - 65 %. 4. Normal LAP Grade 1 Diastolic Dysfunction. 5. Mild mitral regurgitation is present. 6. Mild tricuspid regurgitation present. 7. There is no pericardial effusion. CUT FILER: Wendi Johnson RDCS
[2020-05-22 20:54] LABS: Glucose,Whole Blood 172 mg/dL (75-99)
[2020-05-22] MEDS: DULoxetine HCL 30 MG CAPSULE.DR PO SCH (21:53)
[2020-05-22] MEDS: DULoxetine HCL 60 MG CAPSULE.DR PO SCH (21:53)
[2020-05-22] MEDS: HEPARIN SODIUM,PORCINE 5,000 UNIT/ML 1 ML VIAL SQ SCH (21:54)
[2020-05-23 05:13] LABS: Basophils % (A) 0 %; Eosinophils # (A) 0.3 k/uL (0-0.7); Eosinophils % (A) 2 %; HCT 38.5 % (39.0-53.0); HGB 13.3 gm/dL (13.0-17.5); Lymphocytes # (A) 2.3 k/uL (1.0-4.8); Lymphocytes % (A) 17 %; MCH 29.9 pg (25.0-35.0); MCHC 34.6 g/dL (31.0-37.0); MCV 86.4 fL (80.0-100.0); Mean Platelet Volume 7.8; Monocytes % (A) 7 %; Neutrophils # (A) 9.9 k/uL (1.3-7.7); Neutrophils % (A) 72 %; Platelet Count 188 k/uL (150-450); RBC 4.45 m/uL (4.30-5.90); RDW 12.7 % (11.5-15.5); WBC 13.8 k/uL (3.8-10.6)
[2020-05-23 05:23] LABS: African American GFR (CKD) >90 (>60 ml/min/1.73 sqM); Anion Gap 4 mmol/L; Blood Urea Nitrogen 11 mg/dL (9-20); Calcium 8.2 mg/dL (8.4-10.2); Carbon Dioxide 21 mmol/L (22-30); Chloride 107 mmol/L (98-107); Glucose 278 mg/dL (74-99); Non-African American GFR(CKD) >90 (>60 ml/min/1.73 sqM); Potassium 3.6 mmol/L (3.5-5.1); Sodium 132 mmol/L (137-145)
[2020-05-23] MEDS: ALBUTEROL HFA INHALER INHALATION SCH ×5 (05:57→19:17)
[2020-05-23 06:59] LABS: Glucose,Whole Blood 291 mg/dL (75-99)
[2020-05-23] MEDS: INSULIN DETEMIR (LEVEMIR) 100 UNIT/ML SYR SQ SCH (07:11)
[2020-05-23] MEDS: INSULIN ASPART (NovoLOG) 100 UNIT/ML VIAL SQ SCH ×4 (07:11→21:11)
[2020-05-23] MEDS: ATORVASTATIN 20 MG TAB PO SCH (08:45)
[2020-05-23] MEDS: PANTOPRAZOLE 40 MG/10 ML VIAL IVP SCH (08:45)
[2020-05-23] MEDS: CYCLOBENZAPRINE 10 MG TAB PO SCH ×3 (08:45→21:11)
[2020-05-23] MEDS: HEPARIN SODIUM,PORCINE 5,000 UNIT/ML 1 ML VIAL SQ SCH ×2 (08:45→21:11)
[2020-05-23] MEDS: ASPIRIN 81 MG PO SCH (08:46)
[2020-05-23] MEDS: LORATADINE 10 MG TAB PO SCH (08:46)
[2020-05-23] MEDS: lisinopriL 20 MG TAB PO SCH (08:46)
[2020-05-23] MEDS: amLODIPine 2.5 MG TAB PO SCH (08:47)
[2020-05-23] MEDS ORDERED: SODIUM CHLORIDE 0.9% 500 ML 500 ML IV ONE (09:54)
--- NOTE | 2020-05-23 10:03 | P.PN ---
Subjective Progress Note Date: 05/23/20 Principal diagnosis: Diabetic ketoacidosis This is a pleasant 55-year-old gentleman who follows with Dr. Pierce as his primary care provider. He has a history of diabetes mellitus, gastroesophageal reflux disease, hyperlipidemia, hypertension, chronic back pain, diabetic neurop athy throat cancer status post surgery, depression, chronic and ongoing tobacco dependence, occasional marijuana use. He presented here to the emergency room yesterday with complaints of chest tightness, shortness of breath, weakness with nausea, vomiting, diarrhea. He had recently been initiated on prednisone for shoulder pain. He also states his insulin pump had been beeping often. He had not taken any insulin for 2 days prior to his arrival. Initial labs revealed white count 33.6. Hemoglobin 17.7. Sodium 133. Potassium 5.4. Bicarb less than 5. Anion gap 22. Creatinine 1.9. Lactic acid 5.4. Acetone positive. Moreno virus not detected. He was admitted to the intensive care unit with diabetic ketoacidosis. He is seen today in consultation in the ICU. He is currently awake and alert in no acute distress. White count 25.9. Hemoglobin 13.1. Sodium 132. Potassium 3.8. Creatinine 0.7. Bicarb 19. He is currently on D5.45 with 20 of KCl at 150 MLS per hour. Insulin drip at 10 units per hour. He is on 2 L/m per nasal cannula. Chest x-ray reveals no acute process. The patient is seen today 05/23/2020 in follow-up in the intensive care unit. He is currently resting quite comfortably in bed. Awake and alert in no acute distress. No further nausea, vomiting. No chest discomfort. No shortness of breath. He is maintaining O2 saturation in the 90s on room air. 0.9 normal saying at 50 MLS per hour. Current bicarb 21, anion gap 4, blood glucose 291. White count 13.8. Hemoglobin 13.3. Sodium 132. Potassium 3.6. Creatinine 0.62. Lactic acid 2.3. Troponin 0.052, 0.104. Echocardiogram revealed preserved left ventricular systolic function with ejection fraction 60-65%. He is currently on Levemir 15 units daily, NovoLog to scale. Heparin for DVT p rophylaxis. Protonix for GI prophylaxis. Objective - Vital Signs Vital signs: Vital Signs Temp 98.7 F 05/23/20 00:00 Pulse 84 05/23/20 04:00 Resp 15 05/23/20 04:00 BP 142/82 05/23/20 04:00 Pulse Ox 97 05/23/20 04:00 Intake & Output 05/22/20 05/23/20 05/23/20 18:59 06:59 18:59 Intake Total 1568.167 700 Output Total 1475 400 Balance 93.167 300 Weight 73.8 kg Intake: IV 1350 700 Dextrose 5%-0.45% NaCl 1, 1200 000 ml @ 150 mls/hr IV . Q6H44M TASHI with Potassium Chloride 20 meq Rx#: [id number] Sodium Chloride 0.9% 1, 150 700 000 ml @ 50 mls/hr IV . Q20H TASHI Rx#:[id number] Intake, IV Titration 218.167 Amount Dextrose 5%-0.45% NaCl 1, 150 000 ml @ 150 mls/hr IV . Q6H44M TASHI with Potassium Chloride 20 meq Rx#: [id number] Insulin Regular 100 unit 68.167 In Sodium Chloride 0.9% 100 ml @ 0.1 UNITS/KG/HR 8.017 mls/hr IV .[id number] TASHI Rx#:[id number] Output: Urine 1475 400 Other: Voiding Method Urinal Urinal - Exam GENERAL EXAM: Alert, active, pleasant 55-year-old gentleman, on room air, comfortable in no apparent distress. HEAD: Normocephalic. EYES: Normal reaction of pupils, equal size. NOSE: Clear with pink turbinates. THROAT: No erythema or exudates. NECK: No masses, no JVD. CHEST: No chest wall deformity. LUNGS: Equal air entry with no crackles, wheeze, rhonchi or dullness. CVS: S1 and S2 normal with no audible murmur, regular rhythm. ABDOMEN: No hepatosplenomegaly, normal bowel sounds, no guarding or rigidity. SPINE: No scoliosis or deformity SKIN: No rashes CENTRAL NERVOUS SYSTEM: No focal deficits, tone is normal in all 4 extremities. EXTREMITIES: There is no peripheral edema. No clubbing, no cyanosis. Peripheral pulses are intact. - Labs CBC & Chem 7: 05/23/20 04:33 05/23/20 04:33 Labs: Abnormal Lab Results - Last 24 Hours (Table) 05/22/20 05/22/20 05/22/20 Range/Units 07:27 07:27 10:05 WBC (3.8-10.6) k/uL Hct (39.0-53.0) % Neutrophils # (1.3-7.7) k/uL Sodium (137-145) mmol/L Carbon Dioxide (22-30) mmol/L Creatinine (0.66-1.25) mg/dL Glucose (74-99) mg/dL POC Glucose (mg/dL) 159 H (75-99) mg/dL Plasma Lactic Acid Matt (0.7-2.0) mmol/L Calcium (8.4-10.2) mg/dL Troponin I 0.042 H* (0.000-0.034) ng/mL Procalcitonin 0.18 H (0.02-0.09) ng/mL 05/22/20 05/22/20 05/22/20 Range/Units 11:02 18:30 20:52 WBC (3.8-10.6) k/uL Hct (39.0-53.0) % Neutrophils # (1.3-7.7) k/uL Sodium (137-145) mmol/L Carbon Dioxide (22-30) mmol/L Creatinine (0.66-1.25) mg/dL Glucose (74-99) mg/dL POC Glucose (mg/dL) 152 H 172 H (75-99) mg/dL Plasma Lactic Acid Matt (0.7-2.0) mmol/L Calcium (8.4-10.2) mg/dL Troponin I 0.052 H* (0.000-0.034) ng/mL Procalcitonin (0.02-0.09) ng/mL 05/23/20 05/23/20 05/23/20 Range/Units 04:33 04:33 04:33 WBC 13.8 H (3.8-10.6) k/uL Hct 38.5 L (39.0-53.0) % Neutrophils # 9.9 H (1.3-7.7) k/uL Sodium 132 L (137-145) mmol/L Carbon Dioxide 21 L (22-30) mmol/L Creatinine 0.62 L (0.66-1.25) mg/dL Glucose 278 H (74-99) mg/dL POC Glucose (mg/dL) (75-99) mg/dL Plasma Lactic Acid Matt (0.7-2.0) mmol/L Calcium 8.2 L (8.4-10.2) mg/dL Troponin I 0.104 H* (0.000-0.034) ng/mL Procalcitonin (0.02-0.09) ng/mL 05/23/20 05/23/20 Range/Units 06:57 09:01 WBC (3.8-10.6) k/uL Hct (39.0-53.0) % Neutrophils # (1.3-7.7) k/uL Sodium (137-145) mmol/L Carbon Dioxide (22-30) mmol/L Creatinine (0.66-1.25) mg/dL Glucose (74-99) mg/dL POC Glucose (mg/dL) 291 H (75-99) mg/dL Plasma Lactic Acid Matt 2.3 H* (0.7-2.0) mmol/L Calcium (8.4-10.2) mg/dL Troponin I (0.000-0.034) ng/mL Procalcitonin (0.02-0.09) ng/mL Microbiology - Last 24 Hours (Table) 05/21/20 19:15 Blood Culture - Preliminary Blood No Growth after 24 hours 05/21/20 18:55 Blood Culture - Preliminary Blood No Growth after 24 hours Assessment and Plan Assessment: 1 Acute diabetic ketoacidosis, recovered 2 Acute anion gap metabolic acidosis secondary to above, recovered 3 Lactic acidosis secondary to above, improved 4 Acute renal failure secondary to above, recovered 5 Diabetes mellitus, back on Levemir and sliding scale 6 Hypertension 7 Hyperlipidemia 8 Gastroesophageal reflux disease 9 History of depression Plan: The patient was seen and evaluated by Dr. Guajardo He is stable from the critical care standpoint Cardiology consulted regarding troponins To be transferred out of the ICU today We'll see on an as-needed basis I, the cosigning physician, performed a history & physical examination of the patient. Lungs sounds are clear. Maintaining good O2 saturations in the 90s on room air. I discussed the assessment and plan of care with my nurse practitioner, Nani Hernandez. I attest to the above note as dictated by her.
[2020-05-23 11:28] LABS: Glucose,Whole Blood 162 mg/dL (75-99)
[2020-05-23] MEDS: SODIUM CHLORIDE 0.9% 1,000 ML IV SCH (13:11)
--- NOTE | 2020-05-23 13:30 | P.CRDCN ---
History of Present Illness History of present illness: HISTORY OF PRESENTING ILLNESS This is a pleasant 55-year-old male past medical history significant for type 1 diabetes mellitus, hypertension, hyperlipidemia, tobacco abuse, GERD, diabetic neuropathy, throat cancer status post surgery, depression, occasional marijuana use. Patient has been having ongoing shoulder pain for approximately 1 month and was felt to possibly be related to a pinched nerve and therefore was prescribed prednisone. Unfortunately he had increased glucose in the 500 range for approximately 1 week. Additionally he apparently had run out of his insulin pump approximately 2 days ago. He admits he was having some chest tightness sensation approximately 5 days ago however this then resolved. He then started noticing feeling weak all over, somewhat lightheaded over the next few days. Therefore his recommended for him to come to the emergency department. He was found to be in DKA with a bicarb less than 5, creatinine 1.9 and lactic acid 5.4. Initially his troponin was 0.012 and then increased, 0.042, 0.052, 0.1 and 0.07. He denies any further chest pain or pressure since approximately 5 days ago. He admits that overall he feels much better today. He has been eating without nausea. Patient had an echocardiogram which showed reserved ejection fraction 60-65% with grade 1 diastolic dysfunction. DIAGNOSTICS EKG reveals sinus tachycardia, biatrial enlargement, nonspecific minimal ST depressions inferiorly. Chest xray acute process. Laboratory reviewed, initial white blood cell count 33.6, hemoglobin 17.7, sodium 133, bicarbonate less than 5, creatinine 1.93, glucose greater than 600, lactic acid 5.4, troponin 0.012, 0.042, 0.052, 0.1, 0.07, proBNP 109. White blood cell improved today to 13.8, hemoglobin 13.3, creatinine 0.6, lactic acid 2.3 Current cardiac medications include aspirin 81 mg daily, Norvasc 2.5 mg daily, Lipitor 20 mg daily, lisinopril 40 mg daily. REVIEW OF SYSTEMS At the time of my exam: CONSTITUTIONAL: Denies fever or chills. CARDIOVASCULAR: +chest pain, +shortness of breath, no orthopnea, PND or palpitations. RESPIRATORY: Denies cough. GASTROINTESTINAL: +mild abdominal pain, no diarrhea, constipation, +nausea, vomiting. MUSCULOSKELETAL: Denies myalgias. NEUROLOGIC: Denies numbness, tingling or weakness. ENDOCRINE: +fatigue, no weight change, polydipsia or polyurina. GENITOURINARY: Denies burning, hematuria or urgency with micturation. HEMATOLOGIC: Denies history of anemia or bleeding. PHYSICAL EXAMINATION Blood pressure 129/81 heart rate 80 afebrile and maintaining oxygen saturation on room air. CONSTITUTIONAL: No apparent distress. HEENT: Head is normocephalic. Pupils are equal, round. Sclerae anicteric. Mucous membranes of the mouth are moist. No JVD. No carotid bruit. CHEST EXAMINATION: Lungs are clear to auscultation. No chest wall tenderness is noted on palpation or with deep breathing. HEART EXAMINATION: Regular rate and rhythm. S1, S2 heard. No murmurs, gallops or rub. ABDOMEN: Soft, nontender. Positive bowel sounds. EXTREMITIES: 2+ peripheral pulses, no lower extremity edema and no calf tenderness. NEUROLOGIC EXAMINATION: Patient is awake, alert and oriented x3. ASSESSMENT 1. DKA likely related to recent steroid use and medical noncompliance 2. Tobacco abuse 3. Chest pain of unclear etiology, rule out cardiac source 4. Mildly elevated troponins up to 0.1 likely a component of acute kidney injury, DKA, lactic acidosis 5. Essential hypertension 6. Diabetes mellitus type 1 7. Acute kidney injury, improved 8. Lactic acidosis PLAN Patient's main presentation appears related to DKA from recent steroid use and medical noncompliance. Patient however did have some chest pain and has multiple risk factors for CAD. There is also an increase and decrease to the troponins and therefore we will check a nuclear stress test to rule out underlying CAD. Advised tobacco cessation. We will add a beta ilan. Patient appears to be recovering from his DKA and creatinine improved. Past Medical History Past Medical History: Diabetes Mellitus, GERD/Reflux, Hyperlipidemia, Hypertension Additional Past Medical History / Comment(s): chronic back pain, has lost weight over the past year, abdominal pain, neuropathy due to diabetes,DROP FOOT (LT) wears a boot. retinopathy, mitral valve prolapse.mennigitis as child, recent fall-fx rib on lt side and has a "sore" on lower lt leg.has has steroid inj hips/wrist. carotid artery "leak" History of Any Multi-Drug Resistant Organisms: None Reported Past Surgical History: Tonsillectomy Additional Past Surgical History / Comment(s): polyp removed from stomach as a 1 y.o., lesions removed from throat positive for cancer- sx got it all -no chemo or radiation, egd,colonoscopy/polypectomy(benign)."can't rememebr if he had his appendix removed or not. Past Anesthesia/Blood Transfusion Reactions: No Reported Reaction Past Psychological History: Depression Smoking Status: Current every day smoker Past Alcohol Use History: Occasional Past Drug Use History: Marijuana - Past Family History Mother Family Medical History: Cancer Additional Family Medical History / Comment(s): lung Father Family Medical History: Diabetes Mellitus Additional Family Medical History / Comment(s): store group manager replacment(pig valve) Medications and Allergies Home Medications Medication Instructions Recorded Confirmed Type Ibuprofen [Motrin] 800 mg PO TID PRN 12/30/15 05/21/20 History lisinopriL 40 mg PO DAILY 12/28/16 05/21/20 History Atorvastatin [Lipitor] 20 mg PO DAILY 01/19/17 05/21/20 History Cyclobenzaprine [Flexeril] 5 mg PO TID 01/19/17 05/21/20 History DULoxetine HCL [Cymbalta] 60 mg PO HS 01/19/17 05/21/20 History INSULIN LISPRO (For Pump) [humaLOG 0.01 units SQ-PUMP CONTINUOUS 01/19/17 05/21/20 History (For Pump)] DULoxetine HCL [Cymbalta] 30 mg PO HS 11/28/19 05/21/20 History Loratadine 10 mg PO DAILY 11/28/19 05/21/20 History Omeprazole 20 mg PO BID 11/28/19 05/21/20 History amLODIPine [Norvasc] 2.5 mg PO DAILY 11/28/19 05/21/20 History Aspirin EC [Ecotrin Low Dose] 81 mg PO DAILY #30 tablet. 12/01/19 05/21/20 Rx Allergies Allergy/AdvReac Type Severity Reaction Status Date / Time pregabalin [From Lyrica] Allergy Unknown Verified 05/21/20 19:45 Physical Exam Vitals: Vital Signs Temp Pulse Resp BP Pulse Ox 05/23/20 04:00 84 15 142/82 97 05/23/20 00:00 98.7 F 98 23 132/80 95 05/22/20 23:00 85 14 140/83 95 01/13/21 22:00 91 8 L 113/100 96 05/22/20 21:00 105 H 12 128/75 95 05/22/20 20:00 98.2 F 90 14 101/69 96 05/22/20 19:00 91 15 150/78 96 05/22/20 18:00 96 27 H 129/72 98 05/22/20 17:00 86 14 122/71 05/22/20 16:00 97.9 F 94 16 98/67 97 05/22/20 15:00 84 15 110/70 94 L 05/22/20 14:00 90 14 131/76 94 L Intake and Output 05/22/20 05/23/20 05/23/20 22:59 06:59 14:59 Intake Total 150 700 Output Total 350 400 Balance -200 300 Intake: IV 150 700 Sodium Chloride 0.9% 1, 150 700 000 ml @ 50 mls/hr IV . Q20H [facility] Rx#:[id number] Output: Urine 350 400 Other: Voiding Method Urinal Urinal Results 05/23/20 04:33 05/23/20 04:33 Cardiac Enzymes 05/22/20 05/23/20 05/23/20 Range/Units 18:30 04:33 11:29 Troponin I 0.052 H* 0.104 H* 0.077 H* (0.000-0.034) ng/mL CBC 05/23/20 Range/Units 04:33 WBC 13.8 H (3.8-10.6) k/uL RBC 4.45 (4.30-5.90) m/uL Hgb 13.3 (13.0-17.5) gm/dL Hct 38.5 L (39.0-53.0) % Plt Count 188 (150-450) k/uL Comprehensive Metabolic Panel 05/23/20 Range/Units 04:33 Sodium 132 L (137-145) mmol/L Potassium 3.6 (3.5-5.1) mmol/L Chloride 107 (98-107) mmol/L Carbon Dioxide 21 L (22-30) mmol/L BUN 11 (9-20) mg/dL Creatinine 0.62 L (0.66-1.25) mg/dL Glucose 278 H (74-99) mg/dL Calcium 8.2 L (8.4-10.2) mg/dL Current Medications Generic Name Dose Route Start Last Admin Trade Name Freq PRN Reason Stop Dose Admin Albuterol Sulfate 2 puff 05/21/20 21:00 05/23/20 12:08 Albuterol Hfa Inhaler INHALATION Not Given Q4H [facility] Amlodipine Besylate 2.5 mg 05/22/20 09:00 05/23/20 08:47 Amlodipine 2.5 Mg Tab PO 2.5 mg DAILY [facility] Administration Aspirin 81 mg 05/22/20 09:00 05/23/20 08:46 Aspirin 81 Mg PO 81 mg DAILY [facility] Administration Atorvastatin Calcium 20 mg 05/22/20 09:00 05/23/20 08:45 Atorvastatin 20 Mg Tab PO 20 mg DAILY [facility] Administration Cyclobenzaprine HCl 5 mg 05/21/20 22:00 05/23/20 08:45 Cyclobenzaprine 10 Mg Tab PO 5 mg TID [facility] Administration Duloxetine HCl 30 mg 05/21/20 21:00 05/22/20 21:53 Duloxetine Hcl 30 Mg Capsule. PO Not Given HS [facility] Duloxetine HCl 60 mg 05/21/20 21:00 05/22/20 21:53 Duloxetine Hcl 60 Mg Capsule. PO 60 mg HS [facility] Administration Heparin Sodium (Porcine) 5,000 unit 05/22/20 21:00 05/23/20 08:45 Heparin Sodium,Porcine 5,000 Unit/Ml 1 Ml Vial SQ 5,000 unit Q12HR [facility] Administration Sodium Chloride 1,000 mls @ 50 mls/hr 05/22/20 15:00 05/23/20 13:11 Saline 0.9% IV 50 mls/hr .Q20H [facility] Administration Insulin Aspart 0 unit 05/22/20 12:30 05/23/20 13:07 Insulin Aspart (Novolog) 100 Unit/Ml Vial SQ 3 unit ACHS [facility] Administration Protocol Insulin Detemir 15 unit 05/23/20 07:00 05/23/20 07:11 Insulin Detemir (Levemir) 100 Unit/Ml Syr SQ 15 unit DAILY@0700 [facility] Administration Lisinopril 40 mg 05/22/20 09:00 05/23/20 08:46 Lisinopril 20 Mg Tab PO 40 mg DAILY [facility] Administration Loratadine 10 mg 05/22/20 09:00 05/23/20 08:46 Loratadine 10 Mg Tab PO 10 mg DAILY [facility] Administration Metoclopramide HCl 10 mg 05/21/20 20:54 Metoclopramide 5 Mg/Ml 2 Ml Vial IVP Q6H PRN Nausea Miscellaneous Information 1 each 05/22/20 10:32 Phosphorus Replacement Protoco 1 Each Misc MISCELLANE DAILY PRN Per Protocol Protocol Morphine Sulfate 2 mg 05/21/20 20:56 Morphine Sulfate 2 Mg/Ml Syringe IVP Q2H PRN Pain Ondansetron HCl 4 mg 05/21/20 20:54 Ondansetron 4 Mg/2 Ml Vial IVP Q4H PRN Nausea Pantoprazole Sodium 40 mg 05/22/20 09:00 05/23/20 08:45 Pantoprazole 40 Mg/10 Ml Vial IVP 40 mg DAILY [facility] Administration Intake and Output 05/22/20 05/23/20 05/23/20 22:59 06:59 14:59 Intake Total 150 700 Output Total 350 400 Balance -200 300 Intake: IV 150 700 Sodium Chloride 0.9% 1, 150 700 000 ml @ 50 mls/hr IV . Q20H [facility] Rx#:[id number] Output: Urine 350 400 Other: Voiding Method Urinal Urinal 05/23/20 04:33 05/23/20 04:33
[2020-05-23 17:56] LABS: Glucose,Whole Blood 191 mg/dL (75-99)
--- NOTE | 2020-05-23 18:28 | P.PN ---
Subjective This is a pleasant 55 years old male with past medical history of diabetes mellitus, GERD, hyperlipidemia, hypertension, chronic low back pain, diabetic neuropathy, left foot drop with a boot, Also with history of depression. Patient presents because of nonspecific symptoms of dizziness and vomiting of 1- 2 days duration associated with some mild abdominal pain, patient could not walk and she felt generally weak. Also was complaining of from generalized chest pain for the last few days without specification, felt like something sitting on his chest, nonradiating, associated with some dyspnea but currently is completely resolved with no chest pain, no shortness of breath. All his symptoms are resolved after his been treated in the ICU for DKA. Patient also was taking prednisone taper for the last 6-7 days prescribed to him by Dr. Arriaza is a neurologist for his right shoulder pain. On admission patient glucose was elevated and found to be in diabetic ketoacidosis. He was admitted to the ICU and treated with insulin drip per protocol. This morning patient is awake and alert, slightly lethargic, however he denies chest pain or dyspnea, no abdominal pain, no diarrhea, no vomiting which is stopped, no dizziness, no fever, no other symptoms. He smokes about 2 packs per day, patient is counseled to quit but he declined to quit now, also declined nicotine patch. 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 Crowley, he was on insulin pump for 20 years and he was compliant with it however he ran out of insulin yesterday and he was so weak to replace it Vitas looks stable. Leukocytosis of 33 and 25.9. INR and d-dimer are normal, d-dimer is negative at 0.31. On admission he had low carbon dioxide less than 5, potassium 5.4 and glucose elevated 717, lactic acid was elevated 5.4. Currently BMP showing sodium 132, normal potassium 3.8, creatinine normal 0.7, glucose is around low 200s. Low phosphorus 1.1. Urinalysis showing glucosuria but no signs of infection. Acetone is positive. Coronavirus not detected. EKG showing sinus tachycardia at [address]-T changes. Chest x- ray showing no acute process. Pulmonary team were consulted from the emergency room. At home he was on insulin pump 05/23/20 the pt is seen in ICU, he looks more stable, awake, complain from heaviness in his chest but no overt chest pain, his tropoin is up and down , he is on aspiring and metoprolol is added. pt is planned for stress test by cardiology tomorrow. his gly is controlled on levemir 15 U and novolog 4 units is added with meals , plan to go to his insulin pump on discharge as he wants. no N/V and he tolerated diet high lactic acid is improved with 500 ml bolus down to 1.0 Objective - Vital Signs Vital signs: Vital Signs Temp 98.7 F 05/23/20 00:00 Pulse 84 05/23/20 04:00 Resp 15 05/23/20 04:00 BP 142/82 05/23/20 04:00 Pulse Ox 97 05/23/20 04:00 Intake & Output 05/22/20 05/23/20 05/23/20 18:59 06:59 18:59 Intake Total 1568.167 700 Output Total 1475 400 Balance 93.167 300 Weight 73.8 kg Intake: IV 1350 700 Dextrose 5%-0.45% NaCl 1, 1200 000 ml @ 150 mls/hr IV . Q6H44M [facility] with Potassium Chloride 20 meq Rx#: [id number] Sodium Chloride 0.9% 1, 150 700 000 ml @ 50 mls/hr IV . Q20H [facility] Rx#:[id number] Intake, IV Titration 218.167 Amount Dextrose 5%-0.45% NaCl 1, 150 000 ml @ 150 mls/hr IV . Q6H44M [facility] with Potassium Chloride 20 meq Rx#: [id number] Insulin Regular 100 unit 68.167 In Sodium Chloride 0.9% 100 ml @ 0.1 UNITS/KG/HR 8.017 mls/hr IV .[id number] [facility] Rx#:[id number] Output: Urine 1475 400 Other: Voiding Method Urinal Urinal - Exam GENERAL: The patient is alert and oriented x3, not in any acute distress. Well developed, well nourished. HEENT: Pupils are round and equally reacting to light. EOMI. No scleral icterus. No conjunctival pallor. Normocephalic, atraumatic. No pharyngeal erythema. No thyromegaly. CARDIOVASCULAR: S1 and S2 present. No murmurs, rubs, or gallops. PULMONARY: Chest is clear to auscultation, no wheezing or crackles. ABDOMEN: Soft, nontender, nondistended, normoactive bowel sounds. No palpable organomegaly. MUSCULOSKELETAL: No joint swelling or deformity. EXTREMITIES: No cyanosis, clubbing, or pedal edema. NEUROLOGICAL: Gross neurological examination did not reveal any focal deficits. SKIN: No rashes. No petechiae - Labs CBC & Chem 7: 05/23/20 04:33 05/23/20 04:33 Labs: Abnormal Lab Results - Last 24 Hours (Table) 05/22/20 05/22/20 05/22/20 Range/Units 07:27 18:30 20:52 WBC (3.8-10.6) k/uL Hct (39.0-53.0) % Neutrophils # (1.3-7.7) k/uL Sodium (137-145) mmol/L Carbon Dioxide (22-30) mmol/L Creatinine (0.66-1.25) mg/dL Glucose (74-99) mg/dL POC Glucose (mg/dL) 172 H (75-99) mg/dL Plasma Lactic Acid Matt (0.7-2.0) mmol/L Calcium (8.4-10.2) mg/dL Troponin I 0.052 H* (0.000-0.034) ng/mL Procalcitonin 0.18 H (0.02-0.09) ng/mL 05/23/20 05/23/20 05/23/20 Range/Units 04:33 04:33 04:33 WBC 13.8 H (3.8-10.6) k/uL Hct 38.5 L (39.0-53.0) % Neutrophils # 9.9 H (1.3-7.7) k/uL Sodium 132 L (137-145) mmol/L Carbon Dioxide 21 L (22-30) mmol/L Creatinine 0.62 L (0.66-1.25) mg/dL Glucose 278 H (74-99) mg/dL POC Glucose (mg/dL) (75-99) mg/dL Plasma Lactic Acid Matt (0.7-2.0) mmol/L Calcium 8.2 L (8.4-10.2) mg/dL Troponin I 0.104 H* (0.000-0.034) ng/mL Procalcitonin (0.02-0.09) ng/mL 05/23/20 05/23/20 05/23/20 Range/Units 06:57 09:01 11:27 WBC (3.8-10.6) k/uL Hct (39.0-53.0) % Neutrophils # (1.3-7.7) k/uL Sodium (137-145) mmol/L Carbon Dioxide (22-30) mmol/L Creatinine (0.66-1.25) mg/dL Glucose (74-99) mg/dL POC Glucose (mg/dL) 291 H 162 H (75-99) mg/dL Plasma Lactic Acid Matt 2.3 H* (0.7-2.0) mmol/L Calcium (8.4-10.2) mg/dL Troponin I (0.000-0.034) ng/mL Procalcitonin (0.02-0.09) ng/mL Microbiology - Last 24 Hours (Table) 05/21/20 19:15 Blood Culture - Preliminary Blood No Growth after 24 hours 05/21/20 18:55 Blood Culture - Preliminary Blood No Growth after 24 hours
[2020-05-23 21:06] LABS: Glucose,Whole Blood 242 mg/dL (75-99)
[2020-05-23] MEDS: METOPROLOL TARTRATE 12.5 MG TAB PO SCH (21:11)
[2020-05-23] MEDS: DULoxetine HCL 60 MG CAPSULE.DR PO SCH (21:12)
[2020-05-23] MEDS: DULoxetine HCL 30 MG CAPSULE.DR PO SCH (22:08)
[2020-05-24] MEDS: ALBUTEROL HFA INHALER INHALATION SCH ×4 (03:01→16:29)
[2020-05-24] MEDS ORDERED: AMINOPHYLLINE 500 MG/20 ML VIAL IV PRN (05:00)
[2020-05-24] MEDS ORDERED: CAFFEINE CITRATE 60 MG/3 ML VIAL IV PRN (05:00)
[2020-05-24] MEDS ORDERED: REGADENOSON 0.4 MG/5 ML SYRINGE IV PRN (05:00)
[2020-05-24 05:35] LABS: Basophils # (A) 0.1 k/uL (0-0.2); Basophils % (A) 1 %; Eosinophils # (A) 0.4 k/uL (0-0.7); Eosinophils % (A) 4 %; HCT 39.5 % (39.0-53.0); HGB 13.7 gm/dL (13.0-17.5); Lymphocytes # (A) 2.7 k/uL (1.0-4.8); Lymphocytes % (A) 26 %; MCH 30.5 pg (25.0-35.0); MCHC 34.8 g/dL (31.0-37.0); MCV 87.7 fL (80.0-100.0); Mean Platelet Volume 8.6; Monocytes # (A) 0.7 k/uL (0-1.0); Monocytes % (A) 7 %; Neutrophils # (A) 6.2 k/uL (1.3-7.7); Neutrophils % (A) 61 %; Platelet Count 173 k/uL (150-450); RDW 12.5 % (11.5-15.5); WBC 10.2 k/uL (3.8-10.6)
[2020-05-24 05:41] LABS: African American GFR (CKD) >90 (>60 ml/min/1.73 sqM); Anion Gap 5 mmol/L; Blood Urea Nitrogen 13 mg/dL (9-20); Calcium 8.4 mg/dL (8.4-10.2); Carbon Dioxide 26 mmol/L (22-30); Chloride 102 mmol/L (98-107); Glucose 323 mg/dL (74-99); Magnesium 1.8 mg/dL (1.6-2.3); Non-African American GFR(CKD) >90 (>60 ml/min/1.73 sqM); Phosphorus 2.5 mg/dL (2.5-4.5); Potassium 3.6 mmol/L (3.5-5.1); Sodium 133 mmol/L (137-145)
[2020-05-24] MEDS ORDERED: POTASSIUM CHLORIDE ER 20 MEQ TAB.ER PO SCH (06:00)
[2020-05-24] MEDS: INSULIN DETEMIR (LEVEMIR) 100 UNIT/ML SYR SQ SCH (07:10)
[2020-05-24 07:12] LABS: Glucose,Whole Blood 328 mg/dL (75-99)
[2020-05-24] MEDS: INSULIN ASPART (NovoLOG) 100 UNIT/ML VIAL SQ SCH ×5 (07:12→17:22)
[2020-05-24] MEDS: LORATADINE 10 MG TAB PO SCH (08:14)
[2020-05-24] MEDS: HEPARIN SODIUM,PORCINE 5,000 UNIT/ML 1 ML VIAL SQ SCH (08:14)
[2020-05-24] MEDS: ASPIRIN 81 MG PO SCH (08:14)
[2020-05-24] MEDS: METOPROLOL TARTRATE 12.5 MG TAB PO SCH (08:14)
[2020-05-24] MEDS: lisinopriL 20 MG TAB PO SCH (08:14)
[2020-05-24] MEDS: ATORVASTATIN 20 MG TAB PO SCH (08:15)
[2020-05-24] MEDS: PANTOPRAZOLE 40 MG/10 ML VIAL IVP SCH (08:15)
[2020-05-24] MEDS: CYCLOBENZAPRINE 10 MG TAB PO SCH ×2 (08:16→17:22)
[2020-05-24] MEDS ORDERED: NITROGLYCERIN SL TABS 0.4 MG TAB SUBLINGUAL PRN (08:32)
[2020-05-24] MEDS ORDERED: ALPRAZolam 0.25 MG TAB PO PRN (08:32)
[2020-05-24] MEDS ORDERED: SODIUM CHLORIDE 0.9% 1,000 ML in EMPTY BAG 1 BAG IV ONE (08:32)
[2020-05-24] MEDS ORDERED: ASPIRIN 325 MG TAB PO STA (08:32)
[2020-05-24] MEDS ORDERED: ALPRAZolam 0.5 MG TAB PO PRN (08:32)
[2020-05-24] MEDS ORDERED: ATORVASTATIN 20 MG TAB PO STA (08:32)
[2020-05-24] MEDS ORDERED: ATORVASTATIN 40 MG TAB PO STA (08:45)
[2020-05-24] MEDS ORDERED: ASPIRIN 81 MG PO STA (08:46)
[2020-05-24] MEDS: SODIUM CHLORIDE 0.9% 1,000 ML IV SCH (09:53)
--- NOTE | 2020-05-24 10:28 | P.PN ---
Subjective Progress Note Date: 05/24/20 Principal diagnosis: Diabetic ketoacidosis This is a pleasant 55-year-old gentleman who follows with Dr. Pierce as his primary care provider. He has a history of diabetes mellitus, gastroesophageal reflux disease, hyperlipidemia, hypertension, chronic back pain, diabetic neurop athy throat cancer status post surgery, depression, chronic and ongoing tobacco dependence, occasional marijuana use. He presented here to the emergency room yesterday with complaints of chest tightness, shortness of breath, weakness with nausea, vomiting, diarrhea. He had recently been initiated on prednisone for shoulder pain. He also states his insulin pump had been beeping often. He had not taken any insulin for 2 days prior to his arrival. Initial labs revealed white count 33.6. Hemoglobin 17.7. Sodium 133. Potassium 5.4. Bicarb less than 5. Anion gap 22. Creatinine 1.9. Lactic acid 5.4. Acetone positive. Moreno virus not detected. He was admitted to the intensive care unit with diabetic ketoacidosis. He is seen today in consultation in the ICU. He is currently awake and alert in no acute distress. White count 25.9. Hemoglobin 13.1. Sodium 132. Potassium 3.8. Creatinine 0.7. Bicarb 19. He is currently on D5.45 with 20 of KCl at 150 MLS per hour. Insulin drip at 10 units per hour. He is on 2 L/m per nasal cannula. Chest x-ray reveals no acute process. The patient is seen today 05/23/2020 in follow-up in the intensive care unit. He is currently resting quite comfortably in bed. Awake and alert in no acute distress. No further nausea, vomiting. No chest discomfort. No shortness of breath. He is maintaining O2 saturation in the 90s on room air. 0.9 normal saying at 50 MLS per hour. Current bicarb 21, anion gap 4, blood glucose 291. White count 13.8. Hemoglobin 13.3. Sodium 132. Potassium 3.6. Creatinine 0.62. Lactic acid 2.3. Troponin 0.052, 0.104. Echocardiogram revealed preserved left ventricular systolic function with ejection fraction 60-65%. He is currently on Levemir 15 units daily, NovoLog to scale. Heparin for DVT p rophylaxis. Protonix for GI prophylaxis. The patient is seen today 05/24/2020 and follow-up in the intensive care unit. He was not transferred out yesterday due to bed availability. He remains awake and alert in no acute distress. Resting quite comfortably in bed. He is maintaining O2 saturation in the 90s on room air. No IV fluids currently. He was seen and evaluated by cardiology and the plan is for heart catheterization later today. White count 10.2. Hemoglobin 13.7. Platelets 173. Sodium 133. Potassium 3.6. Creatinine 0.65. Bicarb 26. Glucose 323. Cultures reveal no growth. Objective - Vital Signs Vital signs: Vital Signs Temp 98.4 F 05/24/20 02:00 Pulse 84 05/24/20 02:00 Resp 19 05/24/20 02:00 BP 138/81 05/24/20 02:00 Pulse Ox 99 05/24/20 02:00 Intake & Output 05/23/20 05/24/20 05/24/20 18:59 06:59 18:59 Intake Total 944 Output Total 1800 1100 Balance -1800 -156 Intake: IV 500 Sodium Chloride 0.9% 1, 500 000 ml @ 50 mls/hr IV . Q20H [facility] Rx#:[id number] Oral 444 Output: Urine 1800 1100 Other: Voiding Method Urinal Urinal # Voids 2 - Exam GENERAL EXAM: Alert, active, pleasant 55-year-old gentleman, on room air, comfortable in no apparent distress. HEAD: Normocephalic. EYES: Normal reaction of pupils, equal size. NOSE: Clear with pink turbinates. THROAT: No erythema or exudates. NECK: No masses, no JVD. CHEST: No chest wall deformity. LUNGS: Equal air entry with no crackles, wheeze, rhonchi or dullness. CVS: S1 and S2 normal with no audible murmur, regular rhythm. ABDOMEN: No hepatosplenomegaly, normal bowel sounds, no guarding or rigidity. SPINE: No scoliosis or deformity SKIN: No rashes CENTRAL NERVOUS SYSTEM: No focal deficits, tone is normal in all 4 extremities. EXTREMITIES: There is no peripheral edema. No clubbing, no cyanosis. Periphe ral pulses are intact. - Labs CBC & Chem 7: 05/24/20 04:33 05/24/20 04:33 Labs: Abnormal Lab Results - Last 24 Hours (Table) 05/23/20 05/23/2005/23/21 Range/Units 11:27 11:29 17:55 Sodium (137-145) mmol/L Creatinine (0.66-1.25) mg/dL Glucose (74-99) mg/dL POC Glucose (mg/dL) 162 H 191 H (75-99) mg/dL Troponin I 0.077 H* (0.000-0.034) ng/mL 05/23/20 05/24/20 05/24/20 Range/Units 21:04 04:33 07:11 Sodium 133 L (137-145) mmol/L Creatinine 0.65 L (0.66-1.25) mg/dL Glucose 323 H (74-99) mg/dL POC Glucose (mg/dL) 242 H 328 H (75-99) mg/dL Troponin I (0.000-0.034) ng/mL Microbiology - Last 24 Hours (Table) 05/21/20 19:15 Blood Culture - Preliminary Blood No Growth after 48 hours 05/21/20 18:55 Blood Culture - Preliminary Blood No Growth after 48 hours Assessment and Plan Assessment: 1 Acute diabetic ketoacidosis, recovered 2 Troponin leak, peak 0.104, plan is for cardiac catheterization today 3 Lactic acidosis secondary to above, improved 4 Acute renal failure secondary to above, recovered 5 Diabetes mellitus, back on Levemir and sliding scale 6 Hypertension 7 Hyperlipidemia 8 Gastroesophageal reflux disease 9 History of depression Plan: The patient was seen and evaluated by Dr. Guajardo He is stable from the critical care standpoint Plan is for cardiac catheterization today To be transferred out of the ICU if he remains stable post procedure I, the cosigning physician, performed a history & physical examination of the patient. Lungs sounds are clear. Maintaining good O2 saturations in the 90s on room air. I discussed the assessment and plan of care with my nurse practitioner, Nani Hernandez. I attest to the above note as dictated by her.
[2020-05-24] MEDS ORDERED: VERAPAMIL 2.5 MG/ML 2 ML AMP ONE (11:35)
[2020-05-24] MEDS ORDERED: HEPARIN SODIUM 1,000 UN/ML (10ML VL) ONE (11:35)
[2020-05-24] MEDS ORDERED: fentaNYL (PF) 50 MCG/ML 2 ML AMP ONE (11:35)
[2020-05-24] MEDS ORDERED: LIDOCAINE 1% INJ 10MG/ML (20 ML MDV) ONE (11:35)
[2020-05-24] MEDS ORDERED: fentaNYL (PF) 50 MCG/ML 2 ML AMP IV ONE (11:56)
[2020-05-24] MEDS ORDERED: LIDOCAINE 1% INJ 10MG/ML (20 ML MDV) SQ ONE (11:56)
[2020-05-24] MEDS ORDERED: MIDAZOLAM 2 MG/2 ML VIAL IV ONE (11:56)
[2020-05-24] MEDS ORDERED: VERAPAMIL SYRINGE (5 MG/10 ML) INTRAARTER ONE (12:05)
[2020-05-24] MEDS ORDERED: IV FLUID CONTINUATION 400 ML IV ONE (12:06)
[2020-05-24] MEDS ORDERED: IOPAMIDOL-370 100ML BTL INJ ONE (12:11)
[2020-05-24] MEDS ORDERED: RX INFO: IV CONTRAST WAS GIVEN 1 EACH MISC MISCELLANE PRN (12:25)
[2020-05-24] MEDS ORDERED: SODIUM CHLORIDE 0.9% 1,000 ML IV SCH (12:30)
[2020-05-24 12:34] LABS: Glucose,Whole Blood 286 mg/dL (75-99)
--- NOTE | 2020-05-24 12:57 | CC ---
CARDIAC CATHETERIZATION REPORT Mr. Cervantes is a 55-year-old male with known history of diabetes, chronic tobacco use, who presented with DKA and had troponin elevation with recurrent episode of chest discomfort. He was evaluated by Dr. Blue and recommendation made regarding cardiac catheterization. The procedure as well as the risks and the complications were discussed with the patient who is in full understanding and agreement. PROCEDURE: Patient was brought to the cath lab radiological technologist in a fasting semi-sedated state after receiving fentanyl and Benadryl and achieving moderate conscious sedated state. Using Xylocaine anesthesia in the Seldinger technique a 6-Austrian sheath was introduced in the right radial artery. Selective right and left coronary angiography was performed using 5- Austrian 3.5 bend right Barb catheter. Multiple views of the coronary artery including hemiaxial views obtained. The right Barb was used to cross the aortic valve and left ventricular end-diastolic pressure was calculated. Following that catheter and sheath were removed. Hemostasis was obtained with deployment of a TR band. There was no immediate complication. Patient is returned to his room in stable condition. Of note, the patient received 4000 units of intravenous heparin as well as intra-arterial verapamil. FINDINGS: FLUOROSCOPY: There is calcification involving all the coronary arteries. LEFT MAIN: This is a large-sized vessel, bifurcating into left circumflex, left anterior descending artery. Left main artery has no evidence of high-grade stenosis. LEFT CIRCUMFLEX: This is a small nondominant vessel giving rise to one obtuse marginal branch. The left circumflex as well as branches have no evidence of obstructive coronary artery disease. RIGHT CORONARY ARTERY: This is a large dominant vessel bifurcating in the PDA and posterolateral segment and branches. The right coronary artery in mid segment has an eccentric 30% to 40% plaque in a calcified segment. The rest of the vessel has no high- grade stenosis. LEFT VENTRICULOGRAM: Left ventriculogram was not performed. HEMODYNAMICS: There was no gradient across the aortic valve. The left ventricular end-diastolic pressure was 5-8 mmHg. CONCLUSION: 1. Calcified coronary arteries. 2. Moderate disease involving the mid right coronary artery. RECOMMENDATION: In view of finding anatomy, I recommend continue medical therapy with aggressive coronary risk modification including smoking cessation. The importance of the plan was discussed with the patient and his family and they are in full understanding and agreement. Duration of sedation is 16 minutes. MMODL / IJN: [id number] /
--- NOTE | 2020-05-24 13:03 | LTR ---
May 24, 2020 RE: Andrea Ruvalcabay Dear Dr. Pierce: I had the opportunity to perform cardiac catheterization on Mr. Cervantes at [facility] on the 24 of May and a full copy of procedure note will be forwarded to you. In brief, he was found to have moderate disease involving the mid right coronary artery with calcified coronary arteries. At this time, I will continue medical therapy with aggressive coronary risk modification and smoking cessation. I will keep you updated on his progress. Thank you again for allowing me the opportunity to participate in his care. Please feel free to call for any questions. Sincerely yours, MD MARQUIS MorrowL / DAVIDN: [id number] /
[2020-05-24 16:36] VITALS: BP 118/65; PULSE 76; RESP 16; TEMP 98.2
[2020-05-24 16:44] LABS: Glucose,Whole Blood 206 mg/dL (75-99)
[2020-05-24] MEDS ORDERED: INSULIN ASPART (NovoLOG) 100 UNIT/ML VIAL SQ SCH (17:30)
--- NOTE | 2020-05-24 23:35 | P.DS ---
Providers Date of admission: 05/21/20 20:59 Attending physician: Allan Zuniga MD Consults: 05/21/20 20:57 Consult Physician Routine Consulting Provider: Jack Guajardo Consult Reason/Comments: icu mgmt Do you want consulting provider notified?: Already Contacted 05/22/20 11:27 Consult Physician Urgent Consulting Provider: Luis A Blue Consult Reason/Comments: elevated troponin Do you want consulting provider notified?: Yes Primary care physician: Desmond Webster [facility] Course: Diagnoses: Diabetic ketoacidosis, Mostly secondary to noncompliance to medications of insulin pump, was on steroids Leukocytosis, mostly secondary to DKA and steroids, came back to normal Diabetes mellitus with hyperglycemia Elevated lactic acid, came back to normal Hypertension Hyperlipidemia Chronic low back pain Diabetic neuropathy History of Left foot drop using a boot, resolved now History of depression, not inactivation Hospital course: This is a pleasant 55 years old male with past medical history of diabetes mellitus, GERD, hyperlipidemia, hypertension, chronic low back pain, diabetic neuropathy, left foot drop with a boot, Also with history of depression. Patient presents because of dizziness and vomiting of 1-2 days duration associated with some mild abdominal pain, patient could not walk and she felt generally weak. Also was complaining of chest pain on admission but results within one day. Patient was recently prescribed prednisone for 6-[address] Arriaza his a neurologist for his right shoulder pain. Patient uses insulin pump and lately he did not fill up his prescription of insulin. Patient found to be in diabetic ketoacidosis. He was admitted to the ICU and treated per protocol. The skin and Closed and he switched to subcutaneous insulin and his symptoms resolved. However his troponin was elevated and fluctuating, commercial illustrator recommended cardiac cath Showing moderate disease involving the right mid coronary artery with about 30-40% plaque. no stent needed to be placed. Structural Analyst recommended medical management and lifestyle modification, patient informed and he agrees. Risks of noncompliance explained for him including but not limited to heart attack, stroke and/or . On the day of discharge patient returned to his baseline, his fully awake and oriented with no symptoms, he denies chest pain or dyspnea, no abdominal pain, tolerates diet well, no change in urine or bowel habits. No fever. Patient only feels mildly generally wea from the procedure today however he is ready to go home today I discussed the case with her commercial illustrator who cleared him for discharge. Pulmonary team also cleared the patient for discharge Patient informed me he intends to go back on his insulin drip upon discharge and he declined subcutaneous insulin prescription. Problems and management plan were discussed with the patient and he verbalized understanding and acceptance Patient was found stable and can be discharged home however he needs follow-up as an outpatient. Patient was instructed to follow up with PCP Dr. Pierce within one week and patient agrees. Also patient was instructed to follow up with his commercial illustrator Dr. Ballesteros in 1 week and he agrees to call and make his own appointment Gen: patient is a AAOx3, no distress CVS: S1-S2, RRR, no murmur Lungs: B/L CTA, no wheezing Abdomen: soft, no distention, no tenderness, positive bowel sounds Extremity: no leg edema or induration Time spent more than 35 minutes Patient Condition at Discharge: Fair Plan - Discharge Summary Discharge Rx Participant: No New Discharge Prescriptions: New Atorvastatin [Lipitor] 40 mg PO DAILY #30 tab Metoprolol Tartrate [Lopressor] 12.5 mg PO BID #60 tab Nitroglycerin Sl Tabs [Nitrostat] 0.4 mg SUBLINGUAL Q5M PRN #10 tab PRN Reason: Chest Pain Albuterol Inhaler [Ventolin Hfa Inhaler] 2 puff INHALATION Q4H #1 puff Continue lisinopriL 40 mg PO DAILY INSULIN LISPRO (For Pump) [humaLOG (For Pump)] 0.01 units SQ-PUMP CONTINUOUS DULoxetine HCL [Cymbalta] 60 mg PO HS Cyclobenzaprine [Flexeril] 5 mg PO TID DULoxetine HCL [Cymbalta] 30 mg PO HS Omeprazole 20 mg PO BID Loratadine 10 mg PO DAILY Aspirin EC [Ecotrin Low Dose] 81 mg PO DAILY #30 tablet.dr Discontinued Ibuprofen [Motrin] 800 mg PO TID PRN PRN Reason: Pain Atorvastatin [Lipitor] 20 mg PO DAILY amLODIPine [Norvasc] 2.5 mg PO DAILY Discharge Medication List lisinopriL 40 mg PO DAILY 12/28/16 [History] Cyclobenzaprine [Flexeril] 5 mg PO TID 01/19/17 [History] DULoxetine HCL [Cymbalta] 60 mg PO HS 01/19/17 [History] INSULIN LISPRO (For Pump) [humaLOG (For Pump)] 0.01 units SQ-PUMP CONTINUOUS 01/19/17 [History] DULoxetine HCL [Cymbalta] 30 mg PO HS 11/28/19 [History] Loratadine 10 mg PO DAILY 11/28/19 [History] Omeprazole 20 mg PO BID 11/28/19 [History] Aspirin EC [Ecotrin Low Dose] 81 mg PO DAILY #30 tablet.dr 12/01/19 [Rx] Albuterol Inhaler [Ventolin Hfa Inhaler] 2 puff INHALATION Q4H #1 puff 05/24/20 [Rx] Atorvastatin [Lipitor] 40 mg PO DAILY #30 tab 05/24/20 [Rx] Metoprolol Tartrate [Lopressor] 12.5 mg PO BID #60 tab 05/24/20 [Rx] Nitroglycerin Sl Tabs [Nitrostat] 0.4 mg SUBLINGUAL Q5M PRN #10 tab 05/24/20 [Rx] Follow up Appointment(s)/Referral(s): Brandan Ballesteros MD [STAFF PHYSICIAN] - 1 Week Desmond Pierce III, MD [Primary Care Provider] - 1-2 days Patient Instructions/Handouts: *Surgery [facility] - After Heart Catheterization - Forge Operator Instructions, Left Heart Catheterization (DC), Diabetic Ketoacidosis (DC) Activity/Diet/Wound Care/Special Instructions: heart healthy diet please resume your insulin pump upon discharge activity is restricted till you see your doctor Discharge Disposition: HOME SELF-CARE
[2020-05-25] MEDS ORDERED: HEPARIN SODIUM,PORCINE 10,000 UNIT in SODIUM CHLORIDE 0.9% 1,000 ML IRRIGATION PRN (07:00)
[2020-05-25] MEDS ORDERED: HEPARIN SODIUM,PORCINE 2,500 UNIT in SODIUM CHLORIDE 0.9% 250 ML IRRIGATION PRN (07:00)
[2020-05-25] MEDS ORDERED: INSULIN DETEMIR (LEVEMIR) 100 UNIT/ML SYR SQ SCH (07:00)
[2020-05-25] MEDS ORDERED: PANTOPRAZOLE 40 MG TABLET PO SCH (07:30)
[2020-05-25] MEDS ORDERED: ATORVASTATIN 40 MG TAB PO SCH (09:00)
== END 2020-05-24 18:03 | disposition home or self-care (01) | DRG 638 ==
LOC: EC 17:25 → 2SICU 20:59
PROVIDERS: ADMIT Internal Medicine; ATTEND Internal Medicine
PROC: B2111ZZ Fluoroscopy of Multiple Coronary Arteries using Low Osmolar Contrast (ICD-10-PCS; principal; 2020-05-24 07:30)
PROC: 4A023N7 Measurement of Cardiac Sampling and Pressure, Left Heart, Percutaneous Approach (ICD-10-PCS; principal; 2020-05-24 07:30)
DX: E10.10 Type 1 diabetes mellitus with ketoacidosis without coma (principal); I20.0 Unstable angina; N17.9 Acute kidney failure, unspecified; Z96.41 Presence of insulin pump (external) (internal); K21.9 Gastro-esophageal reflux disease without esophagitis; E78.5 Hyperlipidemia, unspecified; I10 Essential (primary) hypertension; F32.9 Major depressive disorder, single episode, unspecified; I34.1 Nonrheumatic mitral (valve) prolapse; G89.29 Other chronic pain; R79.89 Other specified abnormal findings of blood chemistry; T38.0X5A Adverse effect of glucocorticoids and synthetic analogues, initial encounter; D72.829 Elevated white blood cell count, unspecified; Z20.828 Contact with and (suspected) exposure to other viral communicable diseases; F17.210 Nicotine dependence, cigarettes, uncomplicated; E10.40 Type 1 diabetes mellitus with diabetic neuropathy, unspecified; M54.5 Low back pain; E10.319 Type 1 diabetes mellitus with unspecified diabetic retinopathy without macular edema; M21.372 Foot drop, left foot; R19.7 Diarrhea, unspecified; M25.511 Pain in right shoulder; Z91.14 Patient's other noncompliance with medication regimen; Z79.4 Long term (current) use of insulin; Z90.89 Acquired absence of other organs; Z91.81 History of falling; Z83.3 Family history of diabetes mellitus; Z80.9 Family history of malignant neoplasm, unspecified; Z98.890 Other specified postprocedural states; Z79.82 Long term (current) use of aspirin; Z79.899 Other long term (current) drug therapy; Z88.8 Allergy status to other drugs, medicaments and biological substances; Z91.19 Patient's noncompliance with other medical treatment and regimen; Z85.819 Personal history of malignant neoplasm of unspecified site of lip, oral cavity, and pharynx
CPT/HCPCS: 36415; 71045; 80048; 80051; 80053; 81001; 82009; 82565; 82947; 83605; 83735; 83880; 84100; 84145; 84484; 84520; 85025; 85379; 85610; 85730; 87040; 87635; 93005; 93306; 93458; 94640; 96361; 96365; 96375; 99285

== ENCOUNTER 2020-07-16 18:27 | Emergency (ER) | payer OTHER ==
[2020-07-16 18:37] VITALS: RESP 18; TEMP 98.2
--- NOTE | 2020-07-16 20:08 | CT ---
EXAMINATION TYPE: CT brain wo con DATE OF EXAM: 07/16/2020 HISTORY: fall injury with headache CT DLP: 1135.4 mGycm. Automated Exposure Control for Dose Reduction was Utilized. TECHNIQUE: CT scan of the head is performed without contrast. COMPARISON: CT brain November 28, 2019. FINDINGS: There is no acute intracranial hemorrhage or midline shift identified. There is mild diff use ventricular and sulcal prominence consistent with diffuse age-related cerebral atrophy. There is persistent focus of low attenuation left anterior internal capsule axial image 28 consistent with ol d infarct. The calvarium is intact. The globes are intact and the visualized sinuses are clear. IMPRESSION: No acute intracranial hemorrhage or midline shift. 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 No significant change from prior.
--- NOTE | 2020-07-16 20:09 | XR ---
EXAMINATION TYPE: XR shoulder complete RT DATE OF EXAM: 07/16/2020 CLINICAL HISTORY: Pain after fall injury a few days ago. TECHNIQUE: Three views of the right shoulder are obtained. COMPARISON: None. FINDINGS: Osseous structures are demineralized. There is no acute fracture/dislocation evident in th e right shoulder. Mild narrowing of acromioclavicular joint. Mild to moderate narrowing glenohumeral joint .There is 8 mm ossific density suspected intra-articular loose body. The visualized ribs are i ntact and unremarkable. IMPRESSION: There is no acute fracture or dislocation in the right shoulder.
--- NOTE | 2020-07-16 20:11 | XR ---
EXAMINATION TYPE: XR ribs RT w pa chest xray DATE OF EXAM: 07/16/2020 CLINICAL HISTORY: Chest and right-sided rib pain after recent fall TECHNIQUE: Single frontal view of the chest is obtained. A frontal and oblique images right-sided rib s. COMPARISON: Chest x-ray May 21, 2020 FINDINGS: There is chronic parenchymal change without suspicious new focal air space opacity, pleura l effusion, or pneumothorax seen. The cardiac silhouette size is stable and within normal limits. The osseous structures are demineralized. Dedicated images right-sided ribs show no acute displaced fracture. Overlying soft tissue is unremark able. IMPRESSION: 1. Chronic parenchymal changes without acute pulmonary process. 2. No acute displaced right-sided rib fractures seen.
[2020-07-16] MEDS ORDERED: ACET/COD 300 MG/30 MG STARTER PACK 6 TAB BTL PO STA (20:34)
--- NOTE | 2020-07-16 20:35 | ED ---
Chest Pain HPI - General Chief Complaint: Chest Pain Stated Complaint: fall, rt sided pain Time Seen by Provider: 07/16/20 18:55 Source: patient Mode of arrival: ambulatory Limitations: no limitations - History of Present Illness Initial Comments: 55-year-old male presenting today for chief complaint of right shoulder, right- sided rib pain. Patient states thata week ago he fell off the side of his porch approximately 3-4 feet onto his right rib hitting his head and right shoulder. Patient states he has had right shoulder pain as well as right-sided rib pain since. He states it hurts when takes a deep breath. Patient denies a chest pain prior to this. He denies shortness of breath and leg swelling he denies hemoptysis. Patient states that he initially had a slight headache but that has resolved. He denies anticoagulation therapy. Patient denies nausea vomiting visual changes weakness sensation deficits of the upper or lower extremity. He denies any back or neck pain. She denies any limitations in range of motion of the right shoulder but states it hurts with overhead movement. Patient denies additional complaints. Remaining ROS (-). upon arrival patient appears well nontoxic in no acute distress. Pt unsure if he loss conciousness during fall. - Related Data Home Medications Medication Instructions Recorded Confirmed lisinopriL 40 mg PO DAILY 12/28/16 05/21/20 Cyclobenzaprine [Flexeril] 5 mg PO TID 01/19/17 05/21/20 DULoxetine HCL [Cymbalta] 60 mg PO HS 01/19/17 05/21/20 INSULIN LISPRO (For Pump) [humaLOG 0.01 units SQ-PUMP CONTINUOUS 01/19/17 05/21/20 (For Pump)] DULoxetine HCL [Cymbalta] 30 mg PO HS 11/28/19 05/21/20 Loratadine 10 mg PO DAILY 11/28/19 05/21/20 Omeprazole 20 mg PO BID 11/28/19 05/21/20 Previous Rx's Medication Instructions Recorded Aspirin EC [Ecotrin Low Dose] 81 mg PO DAILY #30 tablet. 12/01/19 Albuterol Inhaler [Ventolin Hfa 2 puff INHALATION Q4H #1 puff 05/24/20 Inhaler] Atorvastatin [Lipitor] 40 mg PO DAILY #30 tab 05/24/20 Metoprolol Tartrate [Lopressor] 12.5 mg PO BID #60 tab 05/24/20 Nitroglycerin Sl Tabs [Nitrostat] 0.4 mg SUBLINGUAL Q5M PRN #10 tab 05/24/20 Allergies Allergy/AdvReac Type Severity Reaction Status Date / Time pregabalin [From Lyrica] Allergy Unknown Verified 07/16/20 18:36 Review of Systems ROS Statement: Those systems with pertinent positive or pertinent negative responses have been documented in the HPI. ROS Other: All systems not noted in ROS Statement are negative. Past Medical History Past Medical History: Diabetes Mellitus, GERD/Reflux, Hyperlipidemia, Hypertension Additional Past Medical History / Comment(s): chronic back pain, has lost weight over the past year, abdominal pain, neuropathy due to diabetes,DROP FOOT (LT) wears a boot. retinopathy, mitral valve prolapse.mennigitis as child, recent fall-fx rib on lt side and has a "sore" on lower lt leg.has has steroid inj hips/wrist. carotid artery "leak" History of Any Multi-Drug Resistant Organisms: None Reported Past Surgical History: Tonsillectomy Additional Past Surgical History / Comment(s): polyp removed from stomach as a 1 y.o., lesions removed from throat positive for cancer- sx got it all -no chemo or radiation, egd,colonoscopy/polypectomy(benign)."can't rememebr if he had his appendix removed or not. 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 Eye: +3mm pupils are equal, round and reactive to light, extra-ocular movements are intact. No nystagmus. There is normal conjunctiva bilaterally. No signs of icterus. Ears, nose, mouth and throat: There are moist mucous membranes and no oral lesions. Neck: The neck is supple, there is no tenderness or JVD. Cardiovascular: There is a regular rate and rhythm. No murmur, rub or gallop is appreciated. Respiratory: she has pain to palpation of the lateral right ribs. Increases with twisting of the torso.Lungs are clear to auscultation, respirations are non-labored, breath sounds are equal. No wheezes, stridor, rales, or rhonchi. Gastrointestinal: Soft, non-distended, non-tender abdomen without masses or organomegaly noted. There is no rebound or guarding present. No CVA tenderness. Musculoskeletal: inspection of the shoulders bilaterally no gross deformity. Patient also pain with overhead range of motion of the right shoulderNormal ROM, no tenderness. Strength 5/5. Sensation intact. Radial and DP pulses equal bilaterally 2+. patient elected fingers crossed okay thumbs-up and oppose the small digit and thumb Neurological: A&O x 3. CN II-XII intact, There are no obvious motor or sensory deficits. Coordination appears grossly intact. Speech is normal. Skin: Skin is warm and dry and no rashes or lesions are noted. Psychiatric: Cooperative, appropriate mood & affect, normal judgment. Limitations: no limitations Course Vital Signs 07/16/20 07/16/20 18:34 20:48 Temperature 98.2 F Pulse Rate 80 77 Respiratory 18 18 Rate Blood Pressure 153/85 142/78 O2 Sat by Pulse 98 98 Oximetry Chest Pain MDM - MDM neurovascular intact patient is reproducible rib pain to palpation with history of fall. X-ray no obvious displaced rib fracture. Patient possible he could have a rib contusion he denies a chest pain prior to the fall. Patient CT of the brain negative. Patient is no focal neurological deficits. Patient was educated on Nereyda Bourgeois treatment for rib contusion as well as importance of follow-up and monitoring for fevers. Patient is agreeable to discharge at this time with primary care follow up 1-2 days. I did discuss the case by attending provider Dr. Alicea was agreeable to this care plan as well as discharge at this time. Ventricular rate 76 bpm, AR interval 144 ms, QRS duration 80 ms, QT/QTC 372/418 ms. This is normal sinus with no ST elevation or depression appreciated Disposition Clinical Impression: Rib pain on right side, Fall, Head injury Disposition: HOME SELF-CARE Condition: Good Instructions (If sedation given, give patient instructions): Rib Contusion (ED) Additional Instructions: Please use medication as discussed. Please follow-up with family doctor in the next 2 days. Please return to emergency room if the symptoms increase or worsen or for any other concerns. Is patient prescribed a controlled substance at d/c from ED?: No Referrals: Desmond Pierce III, MD [Primary Care Provider] - 1-2 days Time of Disposition: 20:35
[2020-07-16 20:49] VITALS: BP 142/78; PULSE 77
== END 2020-07-16 20:49 | disposition home or self-care (01) ==
LOC: EC 18:27
DX: S09.90XA Unspecified injury of head, initial encounter (principal); R07.81 Pleurodynia; E11.9 Type 2 diabetes mellitus without complications; E78.5 Hyperlipidemia, unspecified; I10 Essential (primary) hypertension; K21.9 Gastro-esophageal reflux disease without esophagitis; F17.200 Nicotine dependence, unspecified, uncomplicated; F32.9 Major depressive disorder, single episode, unspecified; F12.90 Cannabis use, unspecified, uncomplicated; W19.XXXA Unspecified fall, initial encounter; Z79.4 Long term (current) use of insulin
CPT/HCPCS: 70450; 93005; 99284

== ENCOUNTER → 2021-12-03 | Outpatient (CLI) | payer OTHER ==
--- NOTE | 2021-12-03 13:25 | CTL ---
EXAMINATION TYPE: CT Low Dose Lung DATE OF EXAM ORDERED: 12/03/2021 HISTORY: . Lung cancer screening CT DLP: 80.[address] CTDI: 2.2 mGy Automated exposure control for dose reduction was used. SCREENING VISIT: COMPARISON: TECHNIQUE: Low dose computed tomography scan was performed through the chest at 1 mm thick sections a nd reconstructed images in multiple planes at 1 mm and [address] DIAGNOSTIC QUALITY: Satisfactory FINDINGS: PULMONARY NODULES: There is biapical pleural thickening with bilateral subpleural nodularity measuring less than 5 mm. There is a 3 mm nodule in the anterior segment of the right upper lobe.. A 2 mm nodule axial image 218 left lower lobe posterior segment. 1 mm nodule subpleural medial margin right lower lobe axial image 215. There is a 3 mm nodule superior segment right lower lobe axial image 180. Along the medial margin of the right superior segment lower lobe axial image 159 there is a 3 mm nodu le. There is a 2 mm nodule along the peripheral margin of the left lower lobe axial image 227. Additional 1 mm subpleural nodule seen. There is a 2 mm nodule lateral margin right lung apex image 55. There is diffuse emphysematous changes. No pneumothorax or pleural effusion. No focal pneumonia. Franko nary artery calcification noted. Atherosclerotic change aorta. Heart size normal. No pathologic adeno gregoria. Hypertrophic degenerative changes spine. IMPRESSION: 1. Multiple 5 mm or less pulmonary nodules. 2. COPD 3. Coronary artery calcification CT LUNG RAD AND CT CHEST RECOMMENDATION: Lung-Rad 2 Benign Appearance or Behavior: Continue annual sc reening with LDCT in 12 months. S Modifier (other clinically significant findings): S
== END | disposition home or self-care (01) ==
LOC: RADCTMAIN 11:16
PROVIDERS: ATTEND Family Medicine
DX: J44.9 Chronic obstructive pulmonary disease, unspecified (principal); I25.10 Atherosclerotic heart disease of native coronary artery without angina pectoris; R91.8 Other nonspecific abnormal finding of lung field; Z87.891 Personal history of nicotine dependence
CPT/HCPCS: 71271

== ENCOUNTER 2021-12-14 01:52 | Emergency (ER) | payer OTHER ==
[2021-12-14 02:04] VITALS: BP 111/74; PULSE 84; RESP 16; TEMP 98.2
[2021-12-14] MEDS ORDERED: CLINDAMYCIN 150 MG CAP PO STA (02:14)
--- NOTE | 2021-12-14 02:18 | ED ---
Extremity Problem HPI - General Chief complaint: Extremity Problem,Nontraumatic Stated complaint: lt foot blisters Time Seen by Provider: 12/14/21 01:55 Source: patient, RN notes reviewed Mode of arrival: ambulatory Limitations: no limitations - History of Present Illness Initial comments: Patient is a 56-year-old diabetic male who presents to emergency department complaining of a rash on his foot which has been there for a few days. Patient states she started to get some cracking in between his toes now has noticed some redness. Patient also had a few blisters in the area. Patient denies any proximal abnormality. Patient does suffer from diabetic neuropathy and has chronic diabetes. Patient has no other symptomology. No fever or chills. She states that he commonly gets his feet wet when he is gardening No headache, no fever or chills, no changes in vision or hearing, no sore throat or difficulty with speech, no neck pain, no chest pain or shortness of breath, no abdominal pain, no nausea or vomiting, no changes in urination or bowel movements, no numbness or tingling, no extremity pain, Past medical, surgical, social, and family history reviewed. - Related Data Home Medications Medication Instructions Recorded Confirmed lisinopriL 40 mg PO DAILY 12/28/16 05/21/20 Cyclobenzaprine [Flexeril] 5 mg PO TID 01/19/17 05/21/20 DULoxetine HCL [Cymbalta] 60 mg PO HS 01/19/17 05/21/20 INSULIN LISPRO (For Pump) [humaLOG 0.01 units SQ-PUMP CONTINUOUS 01/19/17 05/21/20 (For Pump)] DULoxetine HCL [Cymbalta] 30 mg PO HS 11/28/19 05/21/20 Loratadine 10 mg PO DAILY 11/28/19 05/21/20 Omeprazole 20 mg PO BID 11/28/19 05/21/20 Previous Rx's Medication Instructions Recorded Aspirin EC [Ecotrin Low Dose] 81 mg PO DAILY #30 tablet. 12/01/19 Albuterol Inhaler [Ventolin Hfa 2 puff INHALATION Q4H #1 puff 05/24/20 Inhaler] Atorvastatin [Lipitor] 40 mg PO DAILY #30 tab 05/24/20 Metoprolol Tartrate [Lopressor] 12.5 mg PO BID #60 tab 05/24/20 Nitroglycerin Sl Tabs [Nitrostat] 0.4 mg SUBLINGUAL Q5M PRN #10 tab 05/24/20 Clotrimazole Cream [Lotrimin Cream] 1 applic TOPICAL BID #30 gm 12/14/21 Mupirocin 2% Oint [Bactroban 2% 1 applic TOPICAL TID #22 gm 12/14/21 Oint] clindamycin HCL [Cleocin] 300 mg PO Q6HR #40 cap 12/14/21 Allergies Allergy/AdvReac Type Severity Reaction Status Date / Time pregabalin [From Lyrica] Allergy Unknown Verified 07/16/20 18:36 Review of Systems ROS Statement: Those systems with pertinent positive or pertinent negative responses have been documented in the HPI. ROS Other: All systems not noted in ROS Statement are negative. Past Medical History Past Medical History: Diabetes Mellitus, GERD/Reflux, Hyperlipidemia, Hy pertension Additional Past Medical History / Comment(s): chronic back pain, has lost weight over the past year, abdominal pain, neuropathy due to diabetes,DROP FOOT (LT) wears a boot. retinopathy, mitral valve prolapse.mennigitis as child, recent fall-fx rib on lt side and has a "sore" on lower lt leg.has has steroid inj hips/wrist. 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 Past Anesthesia/Blood Transfusion Reactions: No Reported Reaction Past Psychological History: Depression Smoking Status: Current every day smoker Past Alcohol Use History: Occasional Past Drug Use History: Marijuana - Past Family History Mother Family Medical History: Cancer Additional Family Medical History / Comment(s): lung Father Family Medical History: Diabetes Mellitus Additional Family Medical History / Comment(s): motion picture film examiner replacment(pig valve) General Exam - General Exam Comments Initial Comments: Patient in no significant distress. Does not appear to be systemically ill. Vital signs reviewed Limitations: no limitations General appearance: alert, in no apparent distress Head exam: Present: atraumatic, normocephalic, normal inspection Eye exam: Present: normal appearance ENT exam: Present: normal exam Neck exam: Present: normal inspection Respiratory exam: Absent: respiratory distress Cardiovascular Exam: Present: regular rate, normal rhythm, normal heart sounds. Absent: systolic murmur, diastolic murmur, rubs, gallop, clicks GI/Abdominal exam: Present: soft. Absent: tenderness Extremities exam: Present: full ROM, normal capillary refill, other (Patient has some fissuring in between his left toes with evidence of scaling. Patient has a disrupted Bulla in between the third and fourth toes as well as an intact bulla which is 1 cm in diameter.). Absent: pedal edema Back exam: Present: normal inspection Neurological exam: Present: alert, oriented X3, CN II-XII intact Psychiatric exam: Present: normal affect, normal mood Skin exam: Present: warm, dry, other (See above, erythematous area with small bulla consistent with bullous impetigo secondary to tinea pedis). Absent: cyanosis, diaphoretic Course Vital Signs 12/14/21 01:55 Temperature 98.2 F Pulse Rate 84 Respiratory 16 Rate Blood Pressure 111/74 O2 Sat by Pulse 98 Oximetry Medical Decision Making - Medical Decision Making Patient's isolated area on his left toes consistent with tinea pedis with secondary bullous impetigo. No evidence of significant cellulitis. No evidence of systemic infection. treated with clindamycin, topical mupirocin, as well as antifungal cream. Patient was told to return to the ER for any signs or symptoms worsen. Told to return immediately if any other problems arise. All questions answered. Treatment plan discussed. Patient in agreement Every effort has been made to ensure accuracy of this dictation. However, due to the limitations of electronic medical records and dictation devices, errors in charting still occur. [employer] Machine Operator Dr. Zayas Disposition Clinical Impression: Tinea pedis, left, Bullous impetigo Disposition: HOME SELF-CARE Condition: Stable Instructions (If sedation given, give patient instructions): Impetigo (ED), Athlete's Foot (ED) Additional Instructions: Make an appointment with your regular doctor for wound check on Wednesday or . Follow-up with your regular physician as directed. Return to the ER immediately if any symptoms worsen, new symptoms arise, or any other problems develop. Taking antibiotics as directed. Use antifungal cream in between the antibiotic ointment. Prescriptions: Mupirocin 2% Oint [Bactroban 2% Oint] 1 applic TOPICAL TID #22 gm clindamycin HCL [Cleocin] 300 mg PO Q6HR #40 cap Clotrimazole Cream [Lotrimin Cream] 1 applic TOPICAL BID #30 gm Is patient prescribed a controlled substance at d/c from ED?: No Referrals: Desmond Pierce III, MD [Primary Care Provider] - 12/17/21 Time of Disposition: 02:18
== END 2021-12-14 02:39 | disposition home or self-care (01) ==
LOC: EC 01:52
DX: B35.3 Tinea pedis (principal); L01.03 Bullous impetigo; F17.200 Nicotine dependence, unspecified, uncomplicated; E11.9 Type 2 diabetes mellitus without complications; I10 Essential (primary) hypertension; E78.5 Hyperlipidemia, unspecified; K21.9 Gastro-esophageal reflux disease without esophagitis; Z88.8 Allergy status to other drugs, medicaments and biological substances; Z79.4 Long term (current) use of insulin; Z79.899 Other long term (current) drug therapy
CPT/HCPCS: 99282

== ENCOUNTER → 2023-05-13 | Outpatient (CLI) | payer OTHER ==
[2023-05-13 15:34] LABS: ALT 25 U/L (4-49); AST 23 U/L (17-59); African American GFR (CKD) >90 (>60 ml/min/1.73 sqM); Albumin 3.8 g/dL (3.5-5.0); Albumin/Globulin Ratio 1.5; Alkaline Phosphatase 76 U/L (38-126); Anion Gap 11 mmol/L; Blood Urea Nitrogen 20 mg/dL (9-20); Calcium 9.1 mg/dL (8.4-10.2); Carbon Dioxide 25 mmol/L (22-30); Chloride 103 mmol/L (98-107); Globulin 2.5 g/dL; Glucose 91 mg/dL (74-99); Non-African American GFR(CKD) >90 (>60 ml/min/1.73 sqM); Potassium 4.2 mmol/L (3.5-5.1); Sodium 139 mmol/L (137-145); Total Bilirubin 0.4 mg/dL (0.2-1.3); Total Protein 6.3 g/dL (6.3-8.2)
[2023-05-13 15:50] LABS: T4, Free (Free Thyroxine) 1.34 ng/dL (0.78-2.19)
--- NOTE | 2023-05-13 16:18 | CT ---
EXAMINATION TYPE: CT chest w con DATE OF EXAM: 05/13/2023 COMPARISON: Prior low-dose lung screening CT December 03, 2021 HISTORY: f/u nodules CT DLP: 280.5 mGycm. Automated Exposure Control for Dose Reduction was Utilized. TECHNIQUE: CT scan of the thorax is performed following with IV Contrast, patient injected with 100 mL of Isovue 300. FINDINGS: LUNGS: Mild underlying emphysematous changes are redemonstrated. Scattered micronodules redemonstrate d. For reference is a stable 3 to 4 mm right lower lobe pulmonary nodule axial image 30. No new or en larging greater than 5 mm pulmonary nodules. No pleural effusion or pneumothorax is seen bilaterally. The tracheobronchial tree is patent. MEDIASTINUM: There are no greater than 1 cm hilar or mediastinal lymph nodes. No cardiomegaly or pe ricardial effusion is seen. Coronary artery calcification is redemonstrated. OTHER: No additional significant abnormality is seen. IMPRESSION: No new or enlarging greater than 5 mm pulmonary nodules.
[2023-05-13 18:49] LABS: Chol/HDL Ratio 2.19 Ratio; VLDL Calculation 12.66 mg/dL (5.00-40.00)
== END | disposition home or self-care (01) ==
LOC: RADCTMAIN 14:38
PROVIDERS: ATTEND Internal Medicine Critical Care Medicine
DX: R91.8 Other nonspecific abnormal finding of lung field (principal)
CPT/HCPCS: 84439; 80061; 80053; 84443; 84681; 82043; 82570; 83036; 71260; 36415; Q9967